=== PATIENT | female | born 1945 | race Caucasian/White ===

== ENCOUNTER → 2022-08-31 | Outpatient (CLI) | payer MEDICARE, SELFPAY ==
--- NOTE | 2022-08-31 07:44 | ECHOD_ITS ---
Reason For Study: DYSPNEA Procedure This was a 2D Doppler, Color Flow transthoracic echocardiogram. Exam performed in department. Left Ventricle Normal LV size. Left ventricular systolic function is normal. The estimated ejection fraction is 60 %. Normal diastology for age. No regional wall motion abnormalities noted. Right Ventricle Normal RV size. Normal systolic function. Atria Normal left atrium. Normal right atrium. Mitral Valve Normal mitral valve. Tricuspid Valve Normal tricuspid valve. Mild tricuspid valve insufficiency. Pulmonary artery systolic pressure is 36 mmHg. Aortic Valve Normal aortic valve. Mild (1+) aortic valve insufficiency. Pulmonic Valve Normal pulmonic valve. Great Vessels Normal aortic root. The pulmonary artery is normal size. Normal inferior vena cava. Pericardium/Pleural No pericardial effusion. MMode/2D Measurements & Calculations RVDd: 4.3 cm Ao root diam: 3.4 cm LAV(MOD-bp): 58.7 ml LAV(MOD-bp) Indexed: 35.4 ml/m2 LAV(MOD-sp2): 76.2 ml LAV(MOD-sp4): 45.7 ml SV(MOD-sp4): 45.9 ml SV(sp4-el): 48.6 ml LVAd ap4: 27.7 cm2 LVLd ap4: 8.3 cm EDV(MOD-sp4): 75.0 ml EDV(sp4-el): 78.3 ml LVAs ap4: 15.1 cm2 LVLs ap4: 6.5 cm ESV(MOD-sp4): 29.1 ml ESV(sp4-el): 29.7 ml EF(MOD-sp4): 61.2 % EF(sp4-el): 62.0 % LA A4 area: 18.0 cm2 LA dimension(2D): 3.2 cm RA A4 area: 20.2 cm2 Time Measurements MV dec time: 0.21 sec Doppler Measurements & Calculations MV E max herber: 83.6 cm/sec Lat Peak E' Herber: 9.1 cm/sec Med Peak E' Herber: 6.6 cm/sec MV A max herber: 77.7 cm/sec E/E' lat: 9.2 E/E' med: 12.7 MV E/A: 1.1 MV V2 max: 91.4 cm/sec MV dec slope: 398.9 cm/sec2 Ao V2 max: 175.1 cm/sec MV max P.4 mmHg Ao max P.3 mmHg MV V2 mean: 54.8 cm/sec Ao V2 mean: 117.7 cm/sec MV mean P.4 mmHg Ao mean P.4 mmHg MV V2 VTI: 39.9 cm Ao V2 VTI: 46.4 cm AI max herber: 452.5 cm/sec LV V1 max: 157.8 cm/sec PA V2 max: 75.8 cm/sec AI max P.9 mmHg LV V1 max P.0 mmHg PA V2 mean: 53.7 cm/sec LV V1 mean P.0 mmHg AI dec slope: 194.5 cm/sec2 LV V1 mean: 104.8 cm/sec AI P1/2t: 681.4 msec LV V1 VTI: 38.1 cm TR max herber: 288.8 cm/sec TR max P.4 mmHg ECHO/Echo Complete Interpretation Summary Normal LV size. Left ventricular systolic function is normal. The estimated ejection fraction is 60 %. Pulmonary artery systolic pressure is 36 mmHg. Ordering Physician: Tee Valdez Referring Physician: Tee Valdez Performed By: Shayna Trimble RCS
--- NOTE | 2022-08-31 17:38 | STRESSREP ---
Stress Test Report Pharmacologic perfusion stress test. 76-year-old lady with a history of chest pain. Stress protocol: Resting EKG demonstrates normal sinus rhythm with a rate of 56 bpm and a right bundle branch block. 0.4 mg of regadenoson was infused per usual protocol followed by rapid intravenous saline flush injection continuous EKG monitoring was performed. The maximum heart rate attained was 95 bpm which was 65% of max impacted heart rate the maximum workload was 1 metabolic equivalent. At rest there were no ST or T wave changes noted to suggest abnormal flow reserve and at peak infusion nonspecific ST changes were noted with did not meet the criteria for ischemia. No clinical angina was noted. Myocardial perfusion protocol. 11.6 mCi of technetium 99m sestamibi was injected at rest. 0.4 mg of regadenoson was infused per usual protocol. At peak infusion 32.8 mCi of technetium 99m sestamibi was injected stress images were obtained stress and rest images were reconstructed in comparing the short axis vertical long and horizontal long axis. Gated images were also obtained. Review of the stress images demonstrate normal uptake of tracer noted in all areas of the myocardium. The resting images similarly demonstrate normal uptake of tracer noted in all areas of the myocardium. No reversibility is noted to suggest ischemia and no previous infarct is noted. Gated SPECT analysis: The gated ejection fraction is noted to be 80%. Conclusion: Normal pharmacologic myocardial perfusion stress test. Preserved ejection fraction.
== END | disposition home or self-care (01) ==
PROVIDERS: Referring Provider Internal Medicine Cardiovascular Disease; Visit Provider Internal Medicine Cardiovascular Disease
DX: R06.00 Dyspnea, unspecified (principal); I25.10 Atherosclerotic heart disease of native coronary artery without angina pectoris; R06.02 Shortness of breath
CPT/HCPCS: 78452; 93017; 93306; A9500; A4216; J2785

== ENCOUNTER → 2022-12-16 | Outpatient (CLI) | payer MEDICARE, SELFPAY ==
--- NOTE | 2022-12-16 09:51 | RAD_ITS ---
INDICATION: [facility] EXAMINATION/TECHNIQUE: X-RAY - XR Chest 2 Views COMPARISON: None. FINDINGS: LINES/DEVICES: None. LUNGS: Mild hyperinflation with coarsening of interstitial markings. No consolidation, vascular congestion or pleural effusion. MEDIASTINUM AND CARDIOVASCULAR STRUCTURES: Cardiac silhouette not enlarged. Central airways and mediastinal contour are unremarkable. BONES AND SOFT TISSUES: Unremarkable. RAD/Chest PA and Lateral IMPRESSION: Hyperinflation without radiographic findings of acute cardiopulmonary disease. Electronically Signed: Thompson Flores MD at 20:10 EST ,
[2022-12-16 11:00] LABS: Absolute Lymphocyte Count 2.44 X10^3/uL (0.83-4.51); Absolute Neutrophil Count 4.5 X10^3/uL (2.0-7.7); Basophil% 1.2 % (0-1); Eosinophil# 0.33 X10^3/uL; Eosinophils% 4.1 % (0-5); Hematocrit 42.5 % (37-47); Hemoglobin 13.5 g/dL (12.0-15.0); Lymphocyte # 2.44 X10^3/ul (0.83-4.51); Lymphocyte % 30.2 % (19-41); Mean Corp Hgb Conc 31.8 g/dL (32-36); Mean Corpuscular Hgb 31.6 pg (27.0-32.0); Mean Corpuscular Volume 99.5 fL (81-99); Mean Platelet Vol. 9.2 fl (6.2-12.0); Monocyte# 0.71 X10^3/uL; Monocyte% 8.8 % (0-10); NRBC Flagged by Analyzer 0 % (0-5); Neutrophil # 4.47 X10^3/uL (2.7-7.7); Neutrophil % 55.3 % (47-70); Platelet Count 418 K/mm3 (150-450); RBC Distribution Width CV 13.2 % (11.6-14.6); RBC Distribution Width SD 47.8 fl (35.1-43.9); Red Blood Count 4.27 M/mm3 (4.2-5.4); White Blood Count 8.1 K/mm3 (4.4-11.0)
[2022-12-16 11:26] LABS: BNP,B-Type NATRIURETIC PEPTIDE 55.4 pg/mL (0-100)
[2022-12-16 11:38] LABS: Anion Gap 6 (5-15); BUN 20 mg/dL (7-18); BUN/Creat Ratio 24.2 RATIO (10-20); Calcium,Total 9.1 mg/dL (8.5-10.1); Chloride 101 mmol/L (98-107); Creatinine, Serum 0.82 mg/dL (0.55-1.02); EST Glomerular Filtration Rate 72 mL/min (>60); Est Glom Filt Rate - Afr Amer 87 mL/min (>60); Glucose 100 mg/dL (74-106); Potassium 4.3 mmol/L (3.5-5.1); Sodium Level 140 mmol/L (136-145); Thyroid Stim Hormone (TSH) 4.85 uIU/mL (0.358-3.74)
== END | disposition home or self-care (01) ==
LOC: RAD 09:49
PROVIDERS: Referring Provider Nurse Practitioner Gerontology; Visit Provider Nurse Practitioner Gerontology
DX: R06.00 Dyspnea, unspecified (principal); R53.83 Other fatigue
CPT/HCPCS: 36415; 71046; 80048; 83880; 84443; 85025

== ENCOUNTER → 2024-09-12 | Outpatient (CLI) | payer MEDICARE, SELFPAY ==
--- NOTE | 2024-09-12 18:50 | STRESSREP ---
Stress Test Report Pharmacologic myocardial perfusion stress test. 78-year-old lady with a history of chest pain Resting EKG demonstrates sinus bradycardia with a rate of 56 bpm. Resting blood pressure is 152/78 mmHg. 0.4 mg of regadenoson was infused per usual protocol followed by rapid intravenous saline flush injection. Continuous EKG monitoring was performed. The maximum heart rate was 96 bpm which was 67% of max impacted heart rate the maximum workload was 1 metabolic equivalent. At rest there were no ST or T wave changes noted to suggest ischemia and at peak infusion nonspecific ST changes were noted which did not meet the criteria for ischemia. No clinical angina is noted. The final blood pressure was 140/80 mmHg. Myocardial perfusion protocol. 9.3 mCi of technetium 99m sestamibi was injected at rest. 0.4 mg of regadenoson was infused per usual protocol. At peak infusion 31 mCi of technetium 99m sestamibi was injected stress images were obtained stress and rest images were reconstructed and compared in the short axis vertical long and horizontal long axis. Gated images were also obtained. Perfusion SPECT analysis: Review of the stress images demonstrate normal uptake of tracer noted in all areas of the myocardium except for the mid anterior wall with mildly reduced perfusion. The resting images similar demonstrated normal uptake of tracer noted in all areas of the myocardium. Mild anterior reversible ischemia is present Gated SPECT analysis: The gated ejection fraction is 81%. Conclusion: Mildly abnormal pharmacologic myocardial perfusion stress test with mild anterior ischemia. Preserved ejection fraction.
== END | disposition home or self-care (01) ==
PROVIDERS: PCP Family Medicine; Referring Provider Internal Medicine Cardiovascular Disease; Visit Provider Internal Medicine Cardiovascular Disease
DX: R07.9 Chest pain, unspecified (principal); J44.9 Chronic obstructive pulmonary disease, unspecified; R06.00 Dyspnea, unspecified; R53.83 Other fatigue; R00.2 Palpitations; R00.1 Bradycardia, unspecified; I10 Essential (primary) hypertension; I45.10 Unspecified right bundle-branch block; I25.10 Atherosclerotic heart disease of native coronary artery without angina pectoris; Z99.81 Dependence on supplemental oxygen
CPT/HCPCS: 78452; 93017; A9500; A4216; J2785

== ENCOUNTER → 2024-09-14 | Outpatient (CLI) | payer MEDICARE, SELFPAY ==
[2024-09-14 09:00] LABS: Absolute Lymphocyte Count 1.59 X10^3/uL (0.83-4.51); Absolute Neutrophil Count 8.2 X10^3/uL (2.0-7.7); Basophil# 0.09 X10^3/uL; Basophil% 0.8 % (0-1); Eosinophil# 0.22 X10^3/uL; Hematocrit 42.1 % (37-47); Hemoglobin 13.4 g/dL (12.0-15.0); Lymphocyte # 1.59 X10^3/ul (0.83-4.51); Lymphocyte % 14.3 % (19-41); Mean Corp Hgb Conc 31.8 g/dL (32-36); Mean Corpuscular Hgb 31.5 pg (27.0-32.0); Mean Corpuscular Volume 98.8 fL (81-99); Mean Platelet Vol. 8.8 fl (6.2-12.0); Monocyte# 0.98 X10^3/uL; Monocyte% 8.8 % (0-10); NRBC Flagged by Analyzer 0 % (0-5); Neutrophil # 8.18 X10^3/uL (2.7-7.7); Neutrophil % 73.6 % (47-70); Platelet Count 391 K/mm3 (150-450); RBC Distribution Width CV 13.4 % (11.6-14.6); RBC Distribution Width SD 49.1 fl (35.1-43.9); Red Blood Count 4.26 M/mm3 (4.2-5.4); White Blood Count 11.1 K/mm3 (4.4-11.0)
[2024-09-14 09:30] LABS: Anion Gap 2 (5-15); BUN 15 mg/dL (7-18); BUN/Creat Ratio 20.8 RATIO (10-20); Calcium,Total 9.1 mg/dL (8.5-10.1); Chloride 105 mmol/L (98-107); Creatinine, Serum 0.72 mg/dL (0.55-1.02); EST Glomerular Filtration Rate 83 mL/min (>60); Est Glom Filt Rate - Afr Amer 101 mL/min (>60); Glucose 95 mg/dL (74-106); Potassium 4.5 mmol/L (3.5-5.1); Sodium Level 141 mmol/L (136-145)
== END | disposition home or self-care (01) ==
LOC: LAB 08:16
PROVIDERS: PCP Family Medicine; Referring Provider Physician Assistant Medical; Visit Provider Physician Assistant Medical
DX: R94.39 Abnormal result of other cardiovascular function study (principal); R06.00 Dyspnea, unspecified
CPT/HCPCS: 36415; 80048; 85025

== ENCOUNTER 2024-09-19 07:46 | Day surgery (SDC) | payer MEDICARE, SELFPAY ==
--- NOTE | 2024-09-17 12:54 | PCM.HP.BLA ---
History and Physical Date of Admission: 09/19/24 This is a pleasant 78-year-old lady who presents for a cardiac catheterization following an abnormal stress test. Her major complaint at this time is chest discomfort which she says lasts approximately 5 seconds occasionally radiates no exacerbating or relieving factors but is having this more frequently. She has had a previous history of cardiac catheterization from September 2012 demonstrating minimal disease in the proximal left anterior descending artery and distal left anterior descending artery. Her right-sided pressures were noted to be normal. She also had a normal Lexiscan pharmacologic myocardial perfusion stress test in August 2022. She does have a chronic right bundle branch block, history of hypertension and says that she has been told that she may need aortic valve surgery. She underwent an echocardiogram on 08/31/2022 which demonstrated an ejection fraction of 60%, and mild aortic valve insufficiency. From a cardiac standpoint, the patient is doing well. She does have an occasional palpitation. She describes this as a fluttering sensation. This is newer, and occurs about twice a week. She does have SOB with exertion. This is worsening. She states that she does follow with pulmonology. She states she saw them a few weeks ago, and there has been no improvement in her lung function. She sleeps in a recliner. She does wear oxygen at night. She denies Orthopnea, and PND. She does not have bleeding issues; no blood in urine, stool or nosebleeds. She does acknowledge a decrease in energy level. She denies myalgias, or claudication. She does not have edema, or sudden weight gain. She states that she feels like she weighs more. She does have an occasional lightheadedness with walking. She denies dizziness, syncopal or near syncopal episodes, and headaches. Intake Vital Signs See EMR Allergies See EMR Medications See EMR [facility] Medical History Chest pain Thrombocytosis On home oxygen therapy Obesity History of tobacco abuse IBS (irritable bowel syndrome) Rheumatic fever Right bundle branch block (RBBB) Lyme disease Diverticulitis Nonobstructive atherosclerosis of coronary artery Osteoporosis Lumbar spinal stenosis Hypothyroidism Herpes labialis Iron deficiency anemia GERD (gastroesophageal reflux disease) Depression Chronic tension headache COPD (chronic obstructive pulmonary disease) Cervical osteoarthritis Arthritis Essential hypertension Surgical History History of kidney surgery History of right and left heart catheterization (09/21/12) History of lumpectomy of left breast History of tonsillectomy History of hysterectomy History of cholecystectomy History of herniorrhaphy Family History Brother Heart disease CancerSister Heart diseaseSon Heart diseaseSon Heart diseaseMother CancerFather Cancer Social History Smoking Status: Former smoker quit date: 03/10/04 pack-years: 60 alcohol intake: never ROS Const Const: Positive for fatigue and headache(s); Negative for weakness, daytime sleepiness or difficulty sleeping ENT ENT: Positive for headache(s); Negative for dizziness or Nosebleed/epistaxis Cardio Chest Pain: Yes Frequency: daily Character: other Onset: other (off and on) Location: mid sternal Duration: minutes Exacerbation: activity Relieving: rest Palpitations: No Edema: None Additional Details: back pain at times as well Resp Respiratory: Positive for SOB with activity and SOB at rest (hx of COPD); Negative for SOB orthopnea\SOB lying down or Cough GI GI: Positive for nausea; Negative vomiting or heartburn Neuro Neuro: Positive for headache(s); Negative for dizziness, lightheadedness, near syncope or weakness Endo Endo: Positive for fatigue Cardiology Exam Const Appearance: cooperative, healthy appearing, no acute distress, well developed and well groomed Nutritional Appearance: average body habitus, well nourished and overweight Orientation: alert, awake and oriented x3 Head Head: normal to inspection, normocephalic and atraumatic Ears: hearing grossly normal bilaterally and external ears normal Nose: external nose normal Face and Sinus: face symmetric Eyes General: appearance normal, both eyes and all related structures Eyelids: eyelids normal Conjunctivae: conjunctivae normal Pupils: PERRL EOM: EOM intact bilaterally Neck Neck: normal visual inspection, trachea midline and no JVD JVD: +5 Carotids: normal carotid upstroke and bounding pulses Chest Chest inspection: normal inspection of the chest, symmetric chest movement and normal respiratory effort Auscultation: Bilateral: Diminished Base Cardio Palpation: normal PMI Rate: regular rate Rhythm: regular rhythm Heart sounds: S1 normal, S2 normal and normal, physiologic split S2; Negative rub, gallop or murmur GI GI: normal to inspection and soft Neuro General: patient alert, patient awake, patient oriented x3, gait normal, moves all extremities and no focal sensory deficit Skin Skin: no rashes or lesions noted Extremities Pulses: Normal: Right Posterior Tibial Pulse, Left Posterior Tibial Pulse, Right Radial Pulse and Left Radial Pulse Lower Extremity Edema: None: Bilateral Musculoskel Musculoskeletal: No joint tenderness Psych Psychological: normal affect Supplemental Info Supplemental Information Echocardiogram 08/31/2022: Interpretation Summary Normal LV size. Left ventricular systolic function is normal. The estimated ejection fraction is 60 %. Pulmonary artery systolic pressure is 36 mmHg. ECHOCARDIOGRAM 05/02/2021 Interpretation Summary LVEF 75 to 80% with mild LV diastolic dysfunction. The right ventricle is normal in size and function. No hemodynamically significant valvular aortic stenosis. Mild aortic regurgitation. There is mild mitral regurgitation. There is Trace to mild tricuspid regurgitation. Right ventricular systolic pressure is elevated at 35- 40mmHg. Trace pulmonic valvular regurgitation. Trivial pericardial effusion. Stress test 08/31/2022: Pharmacologic perfusion stress test. Conclusion: Normal pharmacologic myocardial perfusion stress test. Preserved ejection fraction. Transtele Arrhythmia Monitor Report 05/19/23 Summary The patient's monitoring period was 05/19/23-06/01/23. Baseline sample showed Sinus Rhythm w/ 1st Degree AV Block wtih a heart rate of 81.5 bpm. There were 0 critical, 0 serious, and 2 stable events that occurred. ? Assessment and Plan Assessment and Plan (1) Nonobstructive atherosclerosis of coronary artery: Status: Chronic Plan: Patient has a history of nonobstructive coronary artery disease. Her most recent stress test from 09/12/2024 was mildly abnormal with mild anterior ischemia. Would like to proceed with a cardiac catheterization to further assess this. Depending on results, further recommendations will be made. (2) Chest pain: Status: Acute Plan: She does have some chest discomfort. Her most recent stress test from 09/12/2024 was mildly abnormal with mild anterior ischemia. Would like to proceed with a cardiac catheterization to further assess this. Depending on results, further recommendations will be made.
--- NOTE | 2024-09-19 07:55 | RAD_ITS ---
INDICATION: abnormal stress test EXAMINATION/TECHNIQUE: X-RAY - XR Chest 2 Views COMPARISON: 12/16/2022. FINDINGS: LINES/DEVICES: None. LUNGS: No consolidation or evidence of an effusion. No evidence of edema or a pneumothorax. Hyperinflation of the lungs which may represent COPD. MEDIASTINUM AND CARDIOVASCULAR STRUCTURES: Cardiac silhouette is normal in size and contour. Mediastinum is unremarkable. BONES AND SOFT TISSUES: No acute abnormality. RAD/Chest PA and Lateral IMPRESSION: No evidence of acute cardiopulmonary disease. Electronically Signed: Dev Coughlin DO at 23:34 EDT ,
--- OUTSIDE RECORDS SUMMARY | 2024-09-19 08:02 | XMS RPT_ITS | CCD ---
Author Organization [facility] Care Team Providers Care Instrument Fitter Name Role Phone JENNA DO, DR NOBLE Mcfadden Primary Care Physician Jenna DO, Noble Mota Primary Care Provider [phone] Jenna DO, Noble Mota Primary Care Provider Jenna DO, Noble Nakul Primary Care Provider [phone] Jenna DO, Noble Nakul Primary Care Provider CARLOS REEVES Admitting Unavailable CARLOS REEVES Attending Unavailable JENNA, [facility] Primary Care Unavailable JENNA, NOBLETYSHAWN MOTA Referring Unavailable JENNA, [facility] Primary [facility] Unavailable CARLOS REEVES Attending Unavailable JENNA, [facility] Primary [facility] Unavailable CARLOS REEVES Referring Unavailable JENNA, [facility] Unavailable SARINAACRMELA Referring Unavailable CARMELA BRANCH Attending Unavailable JENNA, [facility] Unavailable JENNA, [facility] Care Unavailable CARLOS REEVES Referring Unavailable CARLOS REEVES Attending Unavailable JENNA, [facility] Unavailable CARLOS REEVES Referring Unavailable JENNA, [facility] Unavailable CARLOS REEVES Attending Unavailable GEORGIA BUSH Attending Unavailable JENNA, [facility] Unavailable JENNA, [facility] Primary Care Unavailable JENNA DO, DR NOBLE Mcfadden Primary Care Unavailabl e JENNA DO, DR NOBLE Mcfadden Attending Unavailabl e JENNA DO, DR NOBLE Mcfadden Referring Unavailabl e JENNA DO, DR NOBLE Mcfadden Attending Unavailabl e JENNA DO, DR NOBLE Mcfadden Primary Care Unavailabl e JENNA DO, DR NOBLE Mcfadden Primary Care Unavailabl e JENNA DO, DR NOBLE Mcfadden Attending Unavailabl e CHOUJAA DO, NIDAL Attending Unavailable JENNA DO, DR NOBLE Mcfadden Primary Care Unavailabl e JENNA DO, DR NOBLE Mcfadden Primary Care Unavailabl e [facility] Attending Unavaila ble JENNA DO, DR NOBLE Mcfadden Primary Care Unavailabl e [facility] [place] Phelps Attending Unavaila ble JENNA DO, DR NOBLE Mcfadden Primary Care Unavailabl e JENNA DO, DR NOBLE Mcfadden Attending Unavailabl e BALTES ZIG [facility]AG [facility] [place] Attending Unavailabl e JENNA DO, DR NOBLE Mcfadden Primary Care Unavailabl e Allergies Allergy Classification Reported Allergen(s) Allergy Type Date of Onset Reaction(s) Facility (8 sources) DULoxetine; Translations: [duloxetine] Drug Allergy Nausea, Headache, Dizziness [facility] (20 sources) Penicillins; Translations: [penicillins] Drug allergy 4 Swelling, Anaphylaxis [facility] (8 sources) Phenazopyridine; Translations: [phenazopyridine] Drug Allergy Itching, vomiting [facility] (20 sources) Sertraline; Translations: [sertraline] Drug Allergy 1 Other: See Comments [facility] (8 sources) Sulfonamides (Antibiotic); Translations: [sulfa drugs] Drug allergy Itching, Hives [facility] (17 sources) Phenazopyridine; Translations: [PHENAZOPYRIDINE HCL] Drug Allergy 4 GI Upset, Vomiting [facility] Work Phone: (17 sources) Sulfonamides (Antibiotic); Translations: [SULFA (SULFONAMIDE ANTIBIOTICS)] Drug Allergy 4 Swelling, Anaphylaxis [facility] Work Phone: (17 sources) zonisamide; Translations: [ZONISAMIDE] Drug Allergy 6 Rash [facility] Medications Current Medications Medication Drug Class(es) Dates Sig (Normalized) Sig (Original) acetaminophen 325 mg / oxyCODONE hydrochloride 5 mg oral tablet (2 sources) Opioid Agonist Start: 01-14-2022 End: 01-21-2022 take 1 tablet by mouth every six hours as needed for pain acetaminophen-oxyCOD ONE 325 mg-5 mg oral tablet Dose = 1 tab(s), Oral, q6h, PRN for pain, fill 01/15/22, X 7 day(s), # 28 tab(s), 0 Refill(s), Pharmacy: [id number], Cervical osteoarthritis Cervical paraspinal muscle spasm, 156.5, cm, 01/14/22 16:47:00 EST, Height, 66.6, kg, 01/14/22 16:... Start Date: 01/14/22 Stop Date: 01/21/22 Status: Ordered Start: 01-09-2022 End: 01-12-2022 take 1 tablet by mouth every six hours as needed for pain Percocet 5 mg-325 mg oral tablet Dose = 1 tab(s), Oral, q6h, PRN for pain, X 3 day(s), # 12 tab(s), 0 Refill(s), Fall Rib pain, 65.2 Start Date: 01/09/22 Stop Date: 01/12/22 Status: Ordered acyclovir 200 mg oral capsule (13 sources) Herpesvirus Nucleoside Analog DNA Polymerase Inhibitor, Herpes Simplex Virus Nucleoside Analog DNA Polymerase Inhibitor, Herpes Zoster Virus Nucleoside Analog DNA Polymerase Inhibitor Start: 05-02-2023 End: 02-18-2025 acyclovir 200 mg oral capsule Dose : 200 mg = 1 cap(s), Oral, BID, after acute treatment for prevention, # 180 cap(s), 3 Refill(s), Pharmacy: [facility], Herpes simplex type 2 infection, 154, cm, 05/21/24 10:21:00 EDT, Height, kg, 05/21/24 10:21:00 EDT, Dosing Weight Start Date: 05/21/24 Status: Ordered Start: 02-28-2023 End: 03-26-2023 take 1 tablet by mouth five times daily acyclovir (ZOVIRAX) 800 mg tablet TAKE 1 TABLET BY MOUTH FIVE TIMES DAILY FOR 7 DAYS 0 02/28/2023 03/26/2023 Discontinued Start: 08-05-2021 take 2 capsules by m outh twice daily acyclovir 200 mg oral capsule See Instructions, TAKE 2 CAPSULES TWICE DAILY, # 360 cap(s), 3 Refill(s), Pharmacy: [facility], 156, cm, 07/23/21 11:12:00 EDT, Height, kg, 07/23/21 11:12:00 EDT, Dosing Weight Start Date: 08/05/21 Status: Ordered Start: 04-02-2021 End: 08-09-2022 take 1 capsule by mouth twice daily acyclovir (ZOVIRAX) 200 mg capsule Indications: Herpes simplex Take 1 capsule by mouth twice daily. 0 04/02/2021 08/09/2022 Discontinued (Course of therapy completed) Comment on above: Take 1 capsule by mo [facility] twice daily. TAKE 1 TABLET BY MARIANNA FIVE TIMES DAILY FOR 7 DAYS Albuterol (20 sources) beta2-Adrenergic Agonist Start: 05-21-2024 take 1-2 puff(s) by inhalation every six hours as needed for cough Ventolin HFA MDI (90 mcg/inh) inhalation aerosol 1-2 puffs, Inhalation, q6h, PRN as needed for cough/wheeze, # 8.5 gram(s), 3 Refill(s), Pharmacy: [facility], 154, cm, 05/21/24 10:21:00 EDT, Height, kg, 05/21/24 10:21:00 EDT, Dosing Weight Start Date: 05/21/24 Status: Ordered Start: 12-11-2021 take 1-2 puff(s) by inhalation every six hours as needed for cough Ventolin HFA MDI (90 mcg/inh) inhalation aerosol 1-2 puffs, Inhalation, q6h, PRN as needed for cough/wheeze, # 8.5 gram(s), 3 Refill(s), Pharmacy: [facility], 154.5, cm, 10/21/21 11:09:00 EST, Height, kg, 10/21/21 11:09:00 EST, Dosing Weight Start Date: 12/11/21 Status: Ordered Start: 07-22-2020 take 1 dose by inhal ation every eight hours albuterol (PROVENTIL) 2.5 mg /3 mL (0.083 %) nebulizer solution INHALE CONTENTS OF 1 VIAL NEBULIZED EVERY 8 HOURS 300 mL 0 07/22/2020 Active Start: 12-19-2015 End: 03-26-2023 take 2 puff(s) by inhalation twice daily as needed albuterol HFA (PROAIR HFA) 90 mcg/actuation inhaler Inhale 2 Puffs as instructed twice daily as needed. 3 Inhaler 3 12/19/2015 03/26/2023 Discontinued Comment on above: Inhale 2 Puffs as in structed twice daily as needed. INHALE CONTENTS OF 1 VIAL NEBULIZED EVERY 8 HOURS Ascomp with Codeine oral capsule (2 sources) Start: 1 End: 2 take 1 capsule by mouth every eight hours Ascomp with Codeine oral capsule Dose = 1 cap(s), Oral, q8hr, fill 11/11/21, # 90 cap(s), 2 Refill(s), Pharmacy: [id number], Chronic tension headache, 154.5, cm, 10/21/21 11:09:00 EST, Height, 65.2, kg, 10/21/21 11:09:00 EST, Dosing Weight Start Date: 10/21/21 Stop Date: 01/19/22 Status: Ordered aspirin 325 mg / butalbital 50 mg / caffeine 40 mg / codeine phosphate 30 mg oral capsule (6 sources) Platelet Aggregation Inhibitor, Opioid Agonist, Barbiturate, Nonsteroidal Anti-inflammatory Drug, Central Nervous System Stimulant, Methylxanthine Start: 4 End: 5 take 1 capsule by mouth every eight hours Ascomp with Codeine oral capsule Dose = 1 cap(s), Oral, q8h, fill 09/19/24, # 90 cap(s), 2 Refill(s), Pharmacy: [id number], Chronic tension headache, 157, cm, 08/30/24 10:43:00 EDT, Height, 69.4, kg, 08/30/24 10:43:00 EDT, Dosing Weight Start Date: 08/30/24 Stop Date: 11/28/24 Status: Ordered Start: 02-24-2024 End: 05-24-2024 take 1 capsule by mouth every eight hours Ascomp with Codeine oral capsule Dose = 1 cap(s), Oral, q8h, fill 02/24/24, # 90 cap(s), 2 Refill(s), Pharmacy: [id number], Chronic tension headache, 154, cm, 02/24/24 10:53:00 EDT, Height, 68.2, kg, 02/24/24 10:53:00 EDT, Dosing Weight Start Date: 02/24/24 Stop Date: 05/24/24 Status: Ordered Start: 11-25-2023 End: 02-23-2024 take 1 capsule by mouth every eight hours Ascomp with Codeine oral capsule Dose = 1 cap(s), Oral, q8h, fill 11/25/23, # 90 cap(s), 2 Refill(s), Pharmacy: [facility], Chronic tension headache, 154, cm, 11/25/23 10:13:00 EST, Height, 67.9, kg, 11/25/23 10:13:00 EST, Dosing Weight Start Date: 11/25/23 Stop Date: 02/23/24 Status: Ordered Start: 08-01-2023 End: 10-30-2023 take 1 capsule by mouth every eight hours Ascomp with Codeine oral capsule Dose = 1 cap(s), Oral, q8h, fill 08/25/23, # 90 cap(s), 2 Refill(s), Pharmacy: [facility], Chronic tension headache, 154, cm, 08/01/23 10:47:00 EDT, Height, 67.4, kg, 08/01/23 10:47:00 EDT, Dosing Weight Start Date: 08/01/23 Stop Date: 10/30/23 Status: Ordered Calcium, Magnesium and Zinc oral tablet (8 sources) Start: 07-13-2021 take 1 tablet by mouth once daily Calcium, Magnesium and Zinc oral tablet Dose = 1 tab(s), Oral, qDay, with vitamin d also, 0 Refill(s) Start Date: 07/13/21 Status: Ordered Cinnamon Preparation (6 sources) Non-Standardized Food Allergenic Extract Start: 08-17-2023 cinnamon mg =, Oral, 0 Refill(s) Start Date: 08/17/23 Status: Ordered citalopram 40 mg oral tablet (20 sources) Serotonin Reuptake Inhibitor Start: 05-21-2024 citalopram 40 mg oral tablet Dose : 40 mg = 1 tab(s), Oral, qDay, # 90 tab(s), 3 Refill(s), [facility], 154, cm, 05/21/24 10:21:00 EDT, Height, kg, 05/21/24 10:21:00 EDT, Dosing Weight Start Date: 05/21/24 Status: Ordered Start: 01-25-2024 citalopram 40 mg oral tablet Dose : 40 mg = 1 tab(s), Oral, qDay, # 90 tab(s), 3 Refill(s), Pharmacy: [facility], 154, cm, 11/25/23 10:13:00 EST, Height, kg, 11/25/23 10:13:00 EST, Dosing Weight Start Date: 01/25/24 Status: Ordered Start: 10-31-2023 citalopram 40 mg oral tablet Dose : 40 mg = 1 tab(s), Oral, qDay, # 90 tab(s), 3 Refill(s), Pharmacy: [id number], 154, cm, 08/17/23 13:33:00 EDT, Height, kg, 08/17/23 13:33:00 EDT, Dosing Weight Start Date: 10/31/23 Status: Ordered Start: 12-24-2015 citalopram 40 mg oral tablet Dose : 40 mg = 1 tab(s), Oral, qDay, # 90 tab(s), 3 Refill(s), Pharmacy: [facility], 153.5, cm, 07/07/23 16:52:00 EDT, Height, kg, 07/07/23 16:52:00 EDT, Dosing Weight Start Date: 07/07/23 Status: Ordered Comment on above: Take 1 tablet by marianna th once daily. cyclobenzaprine hydrochloride 10 mg oral tablet (20 sources) Muscle Relaxant Start: 05-21-2024 cyclobenzaprine 10 mg oral tablet Dose : 10 mg = 1 tab(s), Oral, qHS, NEEDED FOR MUSCLE SPASM PAIN, # 90 tab(s), 1 Refill(s), Pharmacy: [facility], 154, cm, 05/21/24 10:21:00 EDT, Height, kg, 05/21/24 10:21:00 EDT, Dosing Weight Start Date: 05/21/24 Status: Ordered Start: 02-24-2024 cyclobenzaprin e 10 mg oral tablet Dose : 10 mg = 1 tab(s), Oral, qHS, NEEDED FOR MUSCLE SPASM PAIN, # 90 tab(s), 1 Refill(s), Pharmacy: [facility], 154, cm, 02/24/24 10:53:00 EDT, Height, kg, 02/24/24 10:53:00 EDT, Dosing Weight Start Date: 02/24/24 Status: Ordered Start: 06-11-2015 cyclobenzaprin e 10 mg oral tablet Dose : 10 mg = 1 tab(s), Oral, qHS, NEEDED FOR MUSCLE SPASM PAIN, # 90 tab(s), 1 Refill(s), Pharmacy: [facility], 153.5, cm, 07/07/23 16:52:00 EDT, Height, kg, 07/07/23 16:52:00 EDT, Dosing Weight Start Date: 07/07/23 Status: Ordered Comment on above: Take 1 tablet by marianna th twice daily as needed. DME MISCellaneous (10 sources) Start: 09-16-2023 DME MISCellaneous See Instructions, alcohol pads. E16.2. clear finger prior to checking sugar once daily. #30, # 30 EA, 0 Refill(s), Pharmacy: [id number], 154, cm, 08/17/23 13:33:00 EDT, Height, 66.8, kg, 08/17/23 13:33:00 EDT, Dosing Weight Start Date: 09/16/23 Status: Ordered Start: 09-16-2023 DME MISCellane ous See Instructions, glucometer. #1. E16.2. check blood sugar once daily, # 1 EA, 0 Refill(s), Pharmacy: [id number], Hypoglycemia, 154, cm, 08/17/23 13:33:00 EDT, Height, 66.8, kg, 08/17/23 13:33:00 EDT, Dosing Weight Start Date: 09/16/23 Status: Ordered esomeprazole 40 mg delayed release oral capsule (20 sources) Proton Pump Inhibitor Start: 05-21-2024 esomeprazole 40 mg oral delayed release capsule Dose : 40 mg = 1 cap(s), Oral, qDay, Take 1 capsule everyday before meals on an empty stomach, # 90 cap(s), 3 Refill(s), Pharmacy: [facility], 154, cm, 05/21/24 10:21:00 EDT, Height, kg, 05/21/24 10:21:00 EDT, Dosing Weight Start Date: 05/21/24 Status: Ordered Start: 01-25-2024 esomeprazole 4 0 mg oral delayed release capsule Dose : 40 mg = 1 cap(s), Oral, qDay, Take 1 capsule everyday before meals on an empty stomach, # 90 cap(s), 3 Refill(s), Pharmacy: [facility], 154, cm, 11/25/23 10:13:00 EST, Height, kg, 11/25/23 10:13:00 EST, Dosing Weight Start Date: 01/25/24 Status: Ordered Start: 10-31-2023 esomeprazole 4 0 mg oral delayed release capsule Dose : 40 mg = 1 cap(s), Oral, qDay, Take 1 capsule everyday before meals on an empty stomach, # 90 cap(s), 3 Refill(s), Pharmacy: [id number], 154, cm, 08/17/23 13:33:00 EDT, Height, kg, 08/17/23 13:33:00 EDT, Dosing Weight Start Date: 10/31/23 Status: Ordered Start: 07-07-2023 esomeprazole 4 0 mg oral delayed release capsule Dose : 40 mg = 1 cap(s), Oral, qDay, Take 1 capsule everyday before meals on an empty stomach, # 90 cap(s), 3 Refill(s), Pharmacy: [facility], 153.5, cm, 07/07/23 16:52:00 EDT, Height, kg, 07/07/23 16:52:00 EDT, Dosing Weight Start Date: 8/17/23 Status: Ordered Comment on above: Take 40 mg by mouth DAILY (6 AM). esomeprazole 40 mg oral delayed release capsule (2 sources) Start: 01-15-2022 esomeprazole 40 mg oral delayed release capsule Dose : 40 mg = 1 cap(s), Oral, qDay, Take 1 capsule everyday before meals on an empty stomach, # 90 cap(s), 3 Refill(s), Pharmacy: [facility], 156.5, cm, 01/14/22 16:47:00 EST, Height, kg, 01/14/22 16:47:00 EST, Dosing Weight Start Date: 01/15/22 Status: Ordered Start: 07-23-20[address] [facility] once daily before mealtime esomeprazole 40 mg oral delayed release capsule See Instructions, TAKE 1 CAPSULE EVERY DAY BEFORE MEALS, # 30 cap(s), 11 Refill(s), Pharmacy: [id number], 156, cm, 07/23/21 11:12:00 EDT, Height, kg, 07/23/21 11:12:00 EDT, Dosing Weight Start Date: 07/23/21 Status: Ordered Eye Multivitamin (3 sources) Start: 02-24-2024 take 1 tablet by mouth once daily Eye Multivitamin Dose = 1 tab(s), Oral, qDay, 0 Refill(s) Start Date: 02/24/24 Status: Ordered famotidine 20 mg oral tablet (12 sources) Histamine-2 Receptor Antagonist Start: 05-21-2024 Pepcid 20 mg oral tablet Dose : 20 mg = 1 tab(s), Oral, BID, # 180 tab(s), 3 Refill(s), Pharmacy: [facility], Poison sarika, 154, cm, 05/21/24 10:21:00 EDT, Height, kg, 05/21/24 10:21:00 EDT, Dosing Weight Start Date: 05/21/24 Status: Ordered Start: 01-25-2024 Pepcid 20 mg o ral tablet Dose : 20 mg = 1 tab(s), Oral, BID, # 180 tab(s), 3 Refill(s), Pharmacy: [facility], Poison sarika, 154, cm, 11/25/23 10:13:00 EST, Height, kg, 11/25/23 10:13:00 EST, Dosing Weight Start Date: 01/25/24 Status: Ordered Start: 02-07-2023 Pepcid 20 mg o ral tablet Dose : 20 mg = 1 tab(s), Oral, BID, # 60 tab(s), 11 Refill(s), Pharmacy: [id number], Poison sarika, 154, cm, 08/01/23 10:47:00 EDT, Height, kg, 08/01/23 10:47:00 EDT, Dosing Weight Start Date: 08/01/23 Status: Ordered Start: 08-17-2021 End: 08-12-2022 Pepcid 20 mg oral tablet Dos e : 20 mg = 1 tab(s), Oral, BID, # 60 tab(s), 11 Refill(s), Pharmacy: [id number], Poison sarika, 156, cm, 07/23/21 11:12:00 EDT, Height, kg, 07/23/21 11:12:00 EDT, Dosing Weight Start Date: 08/17/21 Stop Date: 08/12/22 Status: Ordered ferrous sulfate 325 mg oral tablet (20 sources) Start: 05-21-2024 ferrous sulfat e 325 mg (65 mg elemental iron) oral tablet Dose : 325 mg = 1 tab(s), Oral, BIDM, Take with food., # 60 tab(s), 3 Refill(s), Pharmacy: [facility], 154, cm, 05/21/24 10:21:00 EDT, Height, kg, 05/21/24 10:21:00 EDT, Dosing Weight Start Date: 05/21/24 Status: Ordered Start: 07-07-2023 ferrous sulfat e 325 mg (65 mg elemental iron) oral tablet Dose : 325 mg = 1 tab(s), Oral, BIDM, Take with food., # 60 tab(s), 3 Refill(s), Pharmacy: [facility], 153.5, cm, 07/07/23 16:52:00 EDT, Height, kg, 07/07/23 16:52:00 EDT, Dosing Weight Start Date: 07/07/23 Status: Ordered Start: 07-29-2021 take 1 tablet by marianna th three times daily Ferrous Sulfate 27 mg iron tab Take 27 mg by mouth three times daily. 100 tablet 2 07/29/2021 Active Start: 07-06-2021 ferrous sulfat e 325 mg (65 mg elemental iron) oral tablet Dose : 325 mg = 1 tab(s), Oral, BIDM, Take with food., # 60 tab(s), 3 Refill(s), Pharmacy: [id number], 155, cm, 07/04/21 21:01:00 EDT, Height, kg, 07/04/21 21:01:00 EDT, Dosing Weight Start Date: 07/06/21 Status: Ordered Comment on above: Take 27 mg by mouth three times daily. hydroCHLOROthiazide 12.5 mg oral tablet (20 sources) Thiazide Diuretic Start: hydroCHLOROthiazide 12.5 mg oral tablet Dose : 12.5 mg = 1 tab(s), Oral, qDay, # 90 tab(s), 3 Refill(s), Pharmacy: [facility], 154, cm, 05/21/24 10:21:00 EDT, Height, kg, 05/21/24 10:21:00 EDT, Dosing Weight Start Date: 05/21/24 Status: Ordered Start: 01-25-2024 hydroCHLOROthi azide 12.5 mg oral tablet Dose : 12.5 mg = 1 tab(s), Oral, qDay, # 90 tab(s), 3 Refill(s), Pharmacy: [facility], 154, cm, 11/25/23 10:13:00 EST, Height, kg, 11/25/23 10:13:00 EST, Dosing Weight Start Date: 01/25/24 Status: Ordered Start: 08-20-2019 hydroCHLOROthi azide 12.5 mg oral tablet Dose : 12.5 mg = 1 tab(s), Oral, qDay, # 90 tab(s), 3 Refill(s), Pharmacy: [facility], 153.5, cm, 07/07/23 16:52:00 EDT, Height, kg, 07/07/23 16:52:00 EDT, Dosing Weight Start Date: 07/07/23 Status: Ordered Comment on above: Take 1 tablet by marianna th once daily levothyroxine sodium 0.15 mg oral tablet (20 sources) l-Thyroxine Start: 02-20-2021 levothyroxine 150 mcg (0.15 mg) oral tablet Dose : 150 mcg = 1 tab(s), Oral, qDay, 0 Refill(s) Start Date: 02/20/21 Status: Ordered levothyroxine (S YNTHROID) 150 mcg tablet Take 175 mcg by mouth once daily. 0 Active take 1 tablet by mouth once brad y levothyroxine (SYNTHROID) 150 mcg tablet Take 150 mcg by mouth once daily. 0 Active Comment on above: Take 150 mcg by mout h once daily. Take 175 mcg by mout h once daily. loratadine 10 mg oral capsule (1 source) Start: 07-17-2021 loratadine 10 mg oral capsule Dose : 10 mg = 1 cap(s), Oral, qDay, # 10 cap(s), 0 Refill(s), Pharmacy: [id number], Poison sarika, 156, cm, 07/13/21 14:18:00 EDT, Height, kg, 07/17/21 11:02:00 EDT, Dosing Weight Start Date: 07/17/21 Status: Ordered LORazepam 0.5 mg oral tablet (6 sources) Benzodiazepine Start: 08-30-2024 End: 11-28-2024 LORazepam 0.5 mg oral tablet Dose : 0.5 mg = 1 tab(s), Oral, qDay, fill 08/30/24, # 30 tab(s), 2 Refill(s), Pharmacy: [id number], Depression, major, recurrent, moderate, 157, cm, 08/30/24 10:43:00 EDT, Height, 69.4, kg, 08/30/24 10:43:00 EDT, Dosing Weight Start Date: 08/30/24 Stop Date: 11/28/24 Status: Ordered Start: 02-24-2024 End: 05-24-2024 LORazepam 0.5 mg oral tablet Dose : 0.5 mg = 1 tab(s), Oral, qDay, fill 02/24/24, # 30 tab(s), 2 Refill(s), Pharmacy: [id number], Depression, major, recurrent, moderate, 154, cm, 02/24/24 10:53:00 EDT, Height, 68.2, kg, 02/24/24 10:53:00 EDT, Dosing Weight Start Date: 02/24/24 Stop Date: 05/24/24 Status: Ordered Start: 11-25-2023 take 1 tablet by marianna th once daily LORazepam 0.5 mg oral tablet TAKE 1 TABLET BY MOUTH ONCE DAILY Start Date: 11/25/23 Status: Ordered Start: 08-01-2023 End: 10-30-2023 LORazepam 0.5 mg oral tablet Dose : 0.5 mg = 1 tab(s), Oral, qDay, fill 08/17/23, X 30 day(s), # 30 tab(s), 2 Refill(s), 10/30/23 1:01:00 PM EST, Pharmacy: [id number], Panic state as acute reaction to stress Depression, major, recurrent, moderate, 154, cm, 08/01/23 10:47:00 EDT, Height, 67.4, kg, 08/01/23 10:47:00 EDT, Dosing Weight Start Date: 08/01/23 Stop Date: 10/30/23 Status: Ordered perflutren lipid microspheres 1.3 mL in NaCl (PF) 0.9% 10 mL injection ([employer]) (2 sources) Start: 04-02-2021 End: 07-02-2022 perflutren lipid microspheres 1.3 mL in NaCl (PF) 0.9% 10 mL injection ([employer]) Proctozone HC 2.5% topical cream (2 sources) Start: 12-01-2020 Proctozone HC 2.5% topical cream Apply 1 isabel, Topical, TID, apply in a thin film to the affected skin and rub in gently and completely, # 30 gram(s), 3 Refill(s), Pharmacy: [id number], 155.5, cm, 12/01/20 13:49:00 EST, Height, 73.3, kg, 12/01/20 13:49:00 EST, Dosing Weight Start Date: 12/01/20 Status: Ordered 125 ml sodium chloride 9 mg/ml prefilled syringe (2 sources) Start: 04-02-2021 End: 07-02-2022 sodium chloride 0.9 % (flush) 10 mL (BD POSIFLUSH) tobramycin 3 mg/ml ophthalmic solution (2 sources) Aminoglycoside Antibacterial Start: 03-26-2023 End: 04-05-2023 take 1-2 drop(s) into the eye(s) every four hours tobramycin (TOBREX) 0.3 % ophthalmic solution Indications: Bacterial conjunctivitis Use 1-2 Drops in both eyes every 4 hours for 10 days. 5 mL 0 03/26/2023 04/05/2023 Active Comment on above: Use 1-2 Drops in bot h eyes every 4 hours for 10 days. Trelegy Ellipta 100 mcg-62.5 mcg-25 mcg/inh inhalation powder (8 sources) Start: 05-21-2024 End: 05-16-2025 take 1 dose by mouth once daily Trelegy Ellipta 100 mcg-62.5 mcg-25 mcg/inh inhalation powder Dose = 1 puff(s), Inhalation, qDay, at the same time every day. Following administration, rinse mouth with water after use (do not swallow)., # 3 EA, 3 Refill(s), Pharmacy: [facility], 154, cm, 05/21/24 10:21:00 EDT, Height, kg, 05/21/24 10:21:00 EDT, Dosing Weight Start Date: 05/21/24 Stop Date: 05/16/25 Status: Ordered Start: 02-24-2024 End: 02-18-2025 take 1 dose by mouth once daily Trelegy Ellipta 100 mcg-62.5 mcg-25 mcg/inh inhalation powder Dose = 1 puff(s), Inhalation, qDay, at the same time every day. Following administration, rinse mouth with water after use (do not swallow)., # 3 EA, 3 Refill(s), Pharmacy: [facility], 154, cm, 02/24/24 10:53:00 EDT, Height, kg, 02/24/24 10:53:00 EDT, Dosing Weight Start Date: 02/24/24 Stop Date: 02/18/25 Status: Ordered Start: 07-07-2023 End: 07-01-2024 take 1 dose by mouth once daily Trelegy Ellipta 100 mcg-62.5 mcg-25 mcg/inh inhalation powder Dose = 1 puff(s), Inhalation, qDay, at the same time every day. Following administration, rinse mouth with water after use (do not swallow)., # 3 EA, 3 Refill(s), Pharmacy: [facility], 153.5, cm, 07/07/23 16:52:00 EDT, Height, kg, 07/07/23 16:52:00 EDT, Dosing Weight Start Date: 07/07/23 Stop Date: 07/01/24 Status: Ordered Start: 12-01-2020 take 1 dose by mouth once daily Trelegy Ellipta 100 mcg-62.5 mcg-25 mcg/inh inhalation powder Dose = 1 puff(s), Inhalation, qDay, at the same time every day. Following administration, rinse mouth with water after use (do not swallow)., # 60 EA, 0 Refill(s) Start Date: 12/01/20 Status: Ordered Vitamin C 250 mg oral tablet (2 sources) Start: 07-06-2021 Vitamin C 250 mg oral tablet Dose : 250 mg = 1 tab(s), Oral, qDayM, # 30 tab(s), 0 Refill(s), Pharmacy: [id number], 155, cm, 07/04/21 21:01:00 EDT, Height, kg, 07/04/21 21:01:00 EDT, Dosing Weight Start Date: 07/06/21 Status: Ordered Vitamin D3 (1 source) Start: 02-24-2024 Vitamin D3 See Instructions, 1 qDay, 0 Refill(s) Start Date: 02/24/24 Status: Ordered Vitamin E (3 sources) Start: 02-24-2024 vitamin E See Instructions, 1 Oral daily, 0 Refill(s) Start Date: 02/24/24 Status: Ordered zolpidem tartrate 10 mg oral tablet (12 sources) gamma-Aminobutyric Acid-ergic Agonist Start: 08-30-2024 End: 11-28-2024 zolpidem 10 mg oral tablet Dose : 10 mg = 1 tab(s), Oral, qHS, fill 08/30/24, X 30 day(s), # 30 tab(s), 2 Refill(s), 11/28/24 5:47:00 PM EST, Pharmacy: [facility], Insomnia, 157, cm, 08/30/24 10:43:00 EDT, Height, 69.4, kg, 08/30/24 10:43:00 EDT, Dosing Weight Start Date: 08/30/24 Stop Date: 11/28/24 Status: Ordered Start: 02-24-2024 End: 05-24-2024 zolpidem 5 mg oral tablet Do se : 5 mg = 1 tab(s), Oral, qHS, PRN as needed for insomnia, fill 02/24/24, # 30 tab(s), 2 Refill(s), Pharmacy: [place] [id number], Controlled insomnia, 154, cm, 02/24/24 10:53:00 EDT, Height, 68.2, kg, 02/24/24 10:53:00 EDT, Dosing Weight Start Date: 02/24/24 Stop Date: 05/24/24 Status: Ordered Start: 11-10-2023 End: 02-08-2024 zolpidem 5 mg oral tablet Do se : 5 mg = 1 tab(s), Oral, qHS, PRN as needed for insomnia, fill 11/23/23, # 30 tab(s), 2 Refill(s), Pharmacy: [place] [id number], Controlled insomnia, 154, cm, 11/10/23 11:46:00 EST, Height, 66.8, kg, 11/10/23 11:46:00 EST, Dosing Weight Start Date: 11/10/23 Stop Date: 02/08/24 Status: Ordered Start: 08-01-2023 End: 10-30-2023 zolpidem 5 mg oral tablet Do se : 5 mg = 1 tab(s), Oral, qHS, PRN as needed for insomnia, fill 08/14/23, # 30 tab(s), 2 Refill(s), Pharmacy: [place] [id number], Controlled insomnia, 154, cm, 08/01/23 10:47:00 EDT, Height, 67.4, kg, 08/01/23 10:47:00 EDT, Dosing Weight Start Date: 08/01/23 Stop Date: 10/30/23 Status: Ordered Start: 12-09-2021 End: 03-09-2022 zolpidem 5 mg oral tablet Do se : 5 mg = 1 tab(s), Oral, qHS, PRN as needed for insomnia, # 30 tab(s), 2 Refill(s), Pharmacy: [id number], Controlled insomnia, 154.5, cm, 10/21/21 11:09:00 EST, Height, 65.2, kg, 10/21/21 11:09:00 EST, Dosing Weight Start Date: 12/09/21 Stop Date: 03/09/22 Status: Ordered Comment on above: zolpidem 5 mg tablet TAKE 1 TABLET BY MOUTH AT BEDTIME NEEDED FOR INSOMNIA Completed/Discontinued Medications Medication Drug Class(es) Dates Sig (Normalized) Sig (Original) albuterol 0.833 mg/ml / ipratropium bromide 0.167 mg/ml inhalation solution (15 sources) Anticholinergic, beta2-Adrenergic Agonist Start: 04-06-2021 take 3 mL by inhalation every six hours as needed for wheezing ipratropium-albute rol (DUONEB) 0.5 mg-3 mg(2.5 mg base)/3 mL nebu Indications: Moderate COPD (chronic obstructive pulmonary disease) (HCC) Inhale 3 mL as instructed every 6 hours as needed (wheezing/shortnes s of breath). 120 Vial 3 04/06/2021 Active Comment on above: Inhale 3 mL as instr ucted every 6 hours as needed (wheezing/shortness of breath). ascorbic acid 250 mg oral tablet (6 sources) Vitamin C Start: 07-06-2021 ascorbic acid, vitamin C, (VITAMIN C) 250 mg tablet Take 250 mg by mouth. 0 07/06/2021 Active Comment on above: Take 250 mg by mouth . betamethasone 3 mg/ml / betamethasone acetate 3 mg/ml injectable suspension (1 source) Corticosteroid Start: 03-07-2023 End: 03-07-2023 betamethasone acetate-betamethas one sodium phosphate 6 mg injection (CELESTONE) Start: 03-07-2023 End: 03-07-2023 betamethasone acetate-betame thasone sodium phosphate 6 mg injection (CELESTONE) Budesonide / formoterol (4 sources) Corticosteroid, beta2-Adrenergic Agonist take 2 puff(s) by mouth twice daily budesonide-formoterol (SYMBICORT) 160-4.5 mcg/actuation inhaler Symbicort 160 mcg-4.5 mcg/actuation HFA aerosol inhaler INHALE 2 PUFFS BY MOUTH TWICE A DAY 0 Active Comment on above: Symbicort 160 mcg-4. 5 mcg/actuation HFA aerosol inhaler INHALE 2 PUFFS BY MOUTH TWICE A DAY calcium citrate/vitamin D3 (CALCIUM CITRATE + D ORAL) (15 sources) take 1 tablet by mouth once daily calcium citrate/vitamin D3 (CALCIUM CITRATE + D ORAL) Take 1 tablet by mouth once daily. 0 Active Comment on above: Take 1 tablet by marianna once daily. cholecalciferol 0.125 mg oral tablet (20 sources) Vitamin D Start : 06-12 End: 03-26 take 1 tablet by mouth once daily Cholecalciferol, Vitamin D3, 5,000 unit tab Indications: Hypothyroidism Take 5,000 Units by mouth once daily. 0 06/12/2014 03/26/2023 Discontinued take 1 capsule by mouth every we ek cholecalciferol, Vitamin D3, (VITAMIN D3) 1,250 mcg (50,000 unit) cap capsule Take 50,000 Units by mouth one time a week. 0 Active Comment on above: Take 1 tablet by marianna once daily. Take 50,000 Units by mouth one time a week. Take 5,000 Units by mouth once daily. codeine/butalbital/ASA /caffein (FIORINAL-CODEINE #3 ORAL) (7 sources) codeine/butalbit al/ ASA/caffein (FIORINAL-CODEINE #3 ORAL) Take by mouth. 0 Active Comment on above: Take by mouth. 30 actuat fluticasone furoate 0.1 mg/actuat / umeclidinium 0.0625 mg/actuat / vilanterol 0.025 mg/actuat dry powder inhaler (16 sources) Anticholinergic, Corticosteroid, beta2-Adrenergic Agonist Start: 2 End: 2 take 1 puff(s) by inhalation once daily TRELEGY ELLIPTA 100-62.5-25 mcg inhalation powder INHALE 1 PUFF INSTRUCTED ONCE DAILY. 1 Each 09/20/2022 Active Start: 08-27-2021 take 1 puff(s) by in halation once daily TRELEGY ELLIPTA 100-62.5-25 mcg INHALE 1 PUFF INSTRUCTED ONCE DAILY. 3 Each 3 08/27/2021 Active Comment on above: INHALE 1 PUFF INS TRUCTED ONCE DAILY. folic acid 1 mg oral tablet (15 sources) Start: 1 take 1 tablet by mouth once daily folic acid 1 mg tablet Indications: Folic acid deficiency Take 1 tablet by mouth once daily. 100 tablet 0 07/30/2021 Active Comment on above: Take 1 tablet by marianna th once daily. 10 ml lidocaine hydrochloride 10 mg/ml injection (2 sources) Antiarrhythmic, Amide Local Anesthetic Start: 3 End: 3 lidocaine (PF) 10 mg/mL (1 %) 4 mL injection (XYLOCAINE) Start: 01-17-2022 Lidoderm 5% to pical patch Apply 1 patch(es), Transdermal, Daily, # 30 patch(es), 0 Refill(s), Contusion of right chest wall, 66.6 Start Date: 01/17/22 Status: Ordered lisinopril 10 mg oral tablet (4 sources) Angiotensin Converting Enzyme Inhibitor lisinopril (ZESTRIL) 10 mg tablet Take 10 mg by mouth. 0 Active Comment on above: Take 10 mg by mouth. Magnesium (15 sources) take 1 tablet by mouth once daily MAGNESIUM ORAL Take 1 tablet by mouth once daily. 0 Active Comment on above: Take 1 tablet by marianna th once daily. melatonin 5 mg oral capsule (15 sources) take 1 capsule by mouth once daily at bedtime Melatonin 5 mg cap Take 1 capsule by mouth daily at bedtime. 0 Active Comment on above: Take 1 capsule by mo ut daily at bedtime. meloxicam 15 mg oral tablet (1 source) Nonsteroidal Anti-inflammatory Drug Start: 3 take 1 tablet by mouth once daily meloxicam (MOBIC) 15 mg tablet Indications: Chronic right shoulder pain , Shoulder impingement Take 1 tablet by mouth once daily. 30 tablet 1 04/11/2023 Active Comment on above: Take 1 tablet by marianna th once daily. jh-ci-fo1-dha-epa-f jhoana-lut-adama (OCUVITE ADULT 50 PLUS) 250 mg (90 mg-160 mg) cap (2 sources) ku-oq-ha7-dha-ep a-fi sh-lut-adama (OCUVITE ADULT 50 PLUS) 250 mg (90 mg-160 mg) cap Take by mouth once daily. 0 Active Comment on above: Take by mouth once d aily. Nebulizers (11 sources) Start: 0 End: 3 Nebulizers 1 Each as needed. 1 Kit 0 03/12/2020 03/26/2023 Discontinued Start: 03-12-2020 Nebulizers 1 E ach as needed. 1 Kit 0 03/12/2020 Active Comment on above: 1 Each as needed. predniSONE 10 mg oral tablet (1 source) Start: 04-11-20 23 predniSONE (DELTASONE) 10 mg tablet Indications: Chronic right shoulder pain , Shoulder impingement Take 6 pills (all at once) on day 1, 5 pills on day 2, 4 pills on day 3, 3 pills on day 4, 2 pills on day 5, and 1 pill on day 6. 21 tablet 0 04/11/2023 Active Comment on above: Take 6 pills (all at once) on day 1, 5 pills on day 2, 4 pills on day 3, 3 pills on day 4, 2 pills on day 5, and 1 pill on day 6. tiotropium 0.018 mg inhalation powder (4 sources) Anticholinergic take 1 capsule by inhalation once daily tiotropium (SPIRIVA) 18 mcg inhalation capsule Spiriva with HandiHaler 18 mcg and inhalation capsules INHALE 1 CAPSULE INSTRUCTED ONCE DAILY. 0 Active Comment on above: Spiriva with HandiHa ler 18 mcg and inhalation capsules INHALE 1 CAPSULE INSTRUCTED ONCE DAILY. Vitamin D3 125 mcg (5000 intl units) oral capsule (2 sources) Start: 05-21-20 End: 06-20-20 Vitamin D3 125 mcg (5000 intl units) oral capsule Dose : 125 mcg = 1 cap(s), Oral, qDay, # 90 cap(s), 3 Refill(s), Pharmacy: [facility], Secondary hyperparathyroidis m, not elsewhere classified, 154, cm, 05/21/24 10:21:00 EDT, Height, kg, 05/21/24 10:21:00 EDT, Dosing Weight Start Date: 05/21/24 Stop Date: 06/20/24 Status: Ordered Problems Active Problems Problem Classification Problem Date Documented Date Episodic/Chronic Abdominal hernia (15 sources) Hiatal hernia; Translations: [Diaphragmatic hernia without obstruction or gangrene] 10-02-2020 Episodic Anxiety disorders (3 sources) Anxiety 02-24-2024 Chronic Bacterial infection; unspecified site (15 sources) Rheumatic fever; Translations: [Rheumatic fever without heart involvement] 10-02-2020 Episodic Chronic obstructive pulmonary disease and bronchiectasis (20 sources) Moderate chronic obstructive pulmonary disease; Translations: [Chronic obstructive lung disease] Onset: 4 08-20-2019 Chronic Conduction disorders (17 sources) Right bundle branch block; Translations: [Unspecified right bundle-branch block] Onset: 0 10-02-2020 Chronic Coronary atherosclerosis and other heart disease (17 sources) Coronary arteriosclerosis; Translations: [Atherosclerotic heart disease of [place] coronary artery without angina pectoris] Onset: 0 10-02-2020 Chronic Deficiency and other anemia (8 sources) Iron deficiency anemia 07-13-2021 Episodic Disorders of lipid metabolism (17 sources) Mixed hyperlipidemia; Translations: [Mixed hyperlipidemia] Onset: 0 04-02-2020 Chronic Diverticulosis and diverticulitis (15 sources) Diverticulitis; Translations: [Diverticulitis of intestine, part unspecified, without perforation or abscess without bleeding] 10-02-2020 Chronic E Codes: Fall (1 source) Fall; Translations: [Unspecified fall, initial encounter] Onset: 2 Episodic Esophageal disorders (8 sources) Gastroesophageal reflux disease without esophagitis 12-05-2019 Chronic Essential hypertension (20 sources) Benign essential hypertension; Translations: [Benign hypertension] Onset: 0 12-05-2019 Chronic Headache; including migraine (20 sources) Chronic tension-type headache; Translations: [Migraine without aura, not refractory ] Onset: 4 06-02-2020 Chronic Headache; including migraine (1 source) Headache; Translations: [Headache, unspecified] Onset: 3 Episodic Heart valve disorders (9 sources) Aortic valve regurgitation; Translations: [Nonrheumatic aortic (valve) insufficiency] Onset: 3 Chronic Heart valve disorders (15 sources) Heart murmur; Translations: [Cardiac murmur, unspecified] 10-02-2020 Episodic Inflammation; infection of eye (except that caused by tuberculosis or sexually transmitteddisease) (1 source) Bacterial conjunctivitis; Translations: [Unspecified conjunctivitis] Episodic Joint disorders and dislocations; trauma-related (17 sources) Dislocation of temporomandibular joint; Translations: [Dislocation of jaw, unspecified side, initial encounter] Onset: 0 10-02-2020 Episodic Malaise and fatigue (15 sources) Fatigue; Translations: [Chronic fatigue, unspecified] Onset: 0 10-02-2020 Chronic Mood disorders (16 sources) Recurrent major depressive episodes, moderate ; Translations: [Depressive disorder] Onset: 3 08-20-2019 Chronic Mood disorders (1 source) Mood disorders; Translations: [Depression, unspecified depression type] Onset: 3 Nonmalignant breast conditions (15 sources) Breast lump; Translations: [Unspecified lump in unspecified breast] 10-02-2020 Episodic Osteoporosis (20 sources) Primary osteoporosis; Translations: [Osteoporosis] Onset: 4 08-20-2019 Chronic Other connective tissue disease (1 source) Radial styloid tenosynovitis; Translations: [Radial styloid tenosynovitis [de [place]]] Episodic Other connective tissue disease (1 source) Other symptoms and signs involving the musculoskeletal system; Translations: [Other symptoms and signs involving the musculoskeletal system] Episodic Other endocrine disorders (6 sources) Secondary hyperparathyroidism 05-02-2023 Chronic Other gastrointestinal disorders (15 sources) Irritable bowel syndrome; Translations: [Irritable bowel syndrome without diarrhea] Onset: 4 09-12-2014 Chronic Other infections; including parasitic (8 sources) H/O: viral illness 08-20-2019 Episodic Other infections; including parasitic (15 sources) Lyme disease; Translations: [Lyme disease, unspecified] 02-11-2015 Episodic Other injuries and conditions due to external causes (1 source) Injury of head; Translations: [Unspecified injury of head, initial encounter] Onset: 2 Episodic Other lower respiratory disease (1 source) Pleuritic pain; Translations: [Pleurodynia] Onset: 2 Episodic Other nervous system disorders (1 source) Carpal tunnel syndrome, bilateral upper limbs; Translations: [Bilateral carpal tunnel syndrome] Onset: 3 Chronic Other nervous system disorders (2 sources) Bilateral carpal tunnel syndrome; Translations: [Carpal tunnel syndrome, bilateral upper limbs] Chronic Other non-traumatic joint disorders (8 sources) Arthritis of hand 08-20-2019 Chronic Other non-traumatic joint disorders (2 sources) Disorder of shoulder; Translations: [Other specified joint disorders, unspecified shoulder] Episodic Other non-traumatic joint disorders (2 sources) Chronic pain of right upper limb; Translations: [Pain in right shoulder] Episodic Other non-traumatic joint disorders (1 source) Pain of right shoulder joint; Translations: [Pain in right shoulder] Episodic Other non-traumatic joint disorders (1 source) Shoulder stiff; Translations: [Stiffness of right shoulder, not elsewhere classified] Episodic Other non-traumatic joint disorders (2 sources) Rotator cuff arthropathy of right shoulder 08-30-2024 Episodic Other nutritional; endocrine; and metabolic disorders (6 sources) Overweight in adulthood with body mass index of 25 or more but less than 30 05-02-2023 Episodic Other screening for suspected conditions (not mental disorders or infectious disease) (15 sources) Serum iron raised; Translations: [Abnormal level of blood mineral] 10-02-2020 Episodic Other upper respiratory infections (2 sources) Acute upper respiratory infection, unspecified; Translations: [Acute upper respiratory infection, unspecified] Onset: 4 Episodic Residual codes; unclassified (20 sources) Insomnia; Translations: [Insomnia, unspecified] Onset: 5 06-02-2020 Episodic Residual codes; unclassified (1 source) Pain; Translations: [Pain, unspecified] 12-27-2022 Episodic Screening and history of mental health and substance abuse codes (16 sources) Tobacco use and exposure - finding; Translations: [Personal history of nicotine dependence] 10-02-2020 Episodic Spondylosis; intervertebral disc disorders; other back problems (8 sources) Cervical spondylosis 08-20-2019 Chronic Spondylosis; intervertebral disc disorders; other back problems (8 sources) Spinal stenosis of lumbar region 08-20-2019 Episodic Superficial injury; contusion (1 source) Contusion of right chest wall; Translations: [Contusion of right front wall of thorax, initial encounter] Onset: Episodic Thyroid disorders (20 sources) Hypothyroidism; Translations: [Hypothyroidism, unspecified] Onset: 4 12-05-2019 Chronic Viral infection (20 sources) Herpes simplex; Translations: [Herpesviral infection, unspecified] Onset: 4 06-12-2014 Episodic Past or Other Problems Problem Classification Problem Date Documented Date Episodic/Chronic Deficiency and other anemia (16 sources) Anemia; Translations: [Anemia, unspecified] Onset: 06-12-2014 11-16-2021 Episodic Deficiency and other anemia (1 source) Anemia, unspecified; Translations: [Anemia, unspecified type] Onset: 11-17-2021 Episodic Influenza (15 sources) Influenza due to Influenza A virus subtype H1N1; Translations: [Influenza due to other identified influenza virus with other respiratory manifestations] Onset: 11-21-2011 10-02-2020 Episodic Neoplasms of unspecified nature or uncertain behavior (15 sources) Thrombocytosis; Translations: [Thrombocytosis] Onset: 09-02-2014 09-02-2014 Episodic Nutritional deficiencies (15 sources) Folic acid deficiency; Translations: [Deficiency of other specified B group vitamins] Onset: 07-30-2021 07-30-2021 Episodic Other connective tissue disease (15 sources) Capsulitis; Translations: [Other enthesopathies, not elsewhere classified] Onset: 12-24-2014 11-16-2021 Episodic Residual codes; unclassified (15 sources) History of cardiac catheterization; Translations: [Other specified postprocedural states] Onset: 09-21-2012 10-02-2020 Episodic Residual codes; unclassified (20 sources) Past history of procedure; Translations: [Personal history of other medical treatment] Onset: 03-13-2009 10-02-2020 Episodic Residual codes; unclassified (1 source) Pain, unspecified; Translations: [Pain] Onset: 12-27-2022 Episodic Results Test Name Value Interpretation Reference Range Facility US ABDOMEN COMPLETEon 2023 US ABDOMEN COMPLETE ORIGINAL EXAMINATION: COMPLETE ABDOMINAL [id number]/25/2024 9:59 am ULTRASOUND ABDOMEN COMPLETE, TECHNIQUE: This report is based on interpretation of permanently recorded ultrasound images. COMPARISON: CT 01/17/2022 HISTORY: ORDERING SYSTEM PROVIDED HISTORY: Reason for Exam: UPPER ABD PAIN, FINDINGS: The liver is essentially normal in size and echogenicity. No focal abnormality is seen.. There is no intrahepatic bile duct dilatation. The common duct is 12 mm at the lashonda hepatis. It seems dilated through its entire length. This is similar to the earlier CT. No stone is seen in the visualized portions. The adjacent main portal vein shows normal antegrade flow direction. The gallbladder is not seen surgically absent.. The pancreas as visualized shows no focal mass. Mild dilatation of the pancreatic duct is considered normal for age. Some portions are obscured by bowel gas.. The spleen is normal in size and echogenicity. There are echogenic splenic granulomas of no clinical significance. No ascites. Limited survey images of the kidneys show normal cortical thickness and echogenicity. No pelvocaliectasis. . The aorta and IVC as visualized are normal in caliber. Small portions are obscured by bowel gas artifacts.. The patient has a palpable lump in the periumbilical region. Scanning of this abnormality shows an ovoid well-circumscribed mass in the deep subcutaneous space that is 36 x 11 x 25 mm. The mass is isoechoic to the adjacent subcutaneous fat. No significant blood flow. There is no defect in the underlying abdominal wall without and with Valsalva to indicate hernia. No corresponding mass is evident on the earlier CT. IMPRESSION: No acute abnormality is seen. Palpable lump in the periumbilical region does not seem to be a periumbilical hernia. The sonographic appearance would be compatible with a fat containing mass such as lipoma. Ultrasound however cannot be histologically specific and cannot predict biological behavior of soft tissue lesions. The need for follow-up evaluation or intervention should be predicated on clinical criteria including pain and interval increase in size. Interpreted by: Fredi Hoffmann MD Preliminary Report By: Fredi Hoffmann MD Electronically signed By Fredi Hoffmann MD Dictated Date: 09/14/2024 2:25:06 PM Prelim Date: 09/14/2024 2:29:19 PM Sign Date: 09/14/2024 2:29:19 PM Ordering Provider: LANEY [facility] .Auto Diffon 09-11-2024 Basophil, Absolute 0.1 10 3/mcL Normal 0.0-0.2 [facility] Comment on above: Performed By: #### A DIFF, CBC, YESY, LIP, GFR, ANEU, CMP #### [address] [address] Basophils/100 WBC (Bld) 1.1 % Normal 0.0-2.5 [facility] Comment on above: Performed By: #### A DIFF, CBC, YESY, LIP, GFR, ANEU, CMP #### [address] [address] Eosinophil, Absolute 0.1 10 3/mcL Normal 0.0-0.7 [facility] Comment on above: Performed By: #### A DIFF, CBC, YESY, LIP, GFR, ANEU, CMP #### [address] [address] Eosinophils/100 WBC (Bld) 0.9 % Normal 0.0-7.0 [facility] Comment on above: Performed By: #### A DIFF, CBC, YESY, LIP, GFR, ANEU, CMP #### [address] [address] Lymphocyte, Absolute 1.6 10 3/mcL Normal 0.9-4.3 [facility] Comment on above: Performed By: #### A DIFF, CBC, YESY, LIP, GFR, ANEU, CMP #### [address] [address] Lymphocytes/100 WBC (Bld) 18.5 % Low 20.0-40.0 [facility] Comment on above: Performed By: #### A DIFF, CBC, YESY, LIP, GFR, ANEU, CMP #### [address] [address] Monocyte, Absolute 0.8 10 3/mcL Normal 0.1-1.4 [facility] Comment on above: Performed By: #### A DIFF, CBC, YESY, LIP, GFR, ANEU, CMP #### [address] [address] Monocytes/100 WBC (Bld) 8.9 % Normal 2.0-13.0 [facility] Comment on above: Performed By: #### A DIFF, CBC, YESY, LIP, GFR, ANEU, CMP #### [address] [address] Neutrophils/100 WBC (Bld) 70.6 % Normal 50.0-75.0 [facility] Comment on above: Performed By: #### A DIFF, CBC, YESY, LIP, GFR, ANEU, CMP #### [place] [id number] [place], [place] [address] .GFRon 09-11-2024 GFR 97 ml/min/1.73sqm Normal [facility] Comment on above: Result Comment: GFR Population mean for , Non- Americans Ages 20-29 = 116 mL/min/1.73 sq.m. Ages 30-39 = 107 mL/min/1.73 sq.m. Ages 40-49 = 99 mL/min/1.73 sq.m. Ages 50-59 = 93 mL/min/1.73 sq.m. Ages 60-69 = 85 mL/min/1.73 sq.m. Ages 70+ = 75 mL/min/1.73 sq.m. Chronic Kidney Disease: Less than 60 mL/min/1.73 square meters End Stage Renal Disease: Less than 15 mL/min/1.73 square meters Performed By: #### A DIFF, CBC, YESY, LIP, GFR, ANEU, CMP #### [address] [address] GFR Non- 80 ml/min/1.73sqm Normal [facility] Comment on above: Result Comment: GFR Population mean for , Non- Americans Ages 20-29 = 116 mL/min/1.73 sq.m. Ages 30-39 = 107 mL/min/1.73 sq.m. Ages 40-49 = 99 mL/min/1.73 sq.m. Ages 50-59 = 93 mL/min/1.73 sq.m. Ages 60-69 = 85 mL/min/1.73 sq.m. Ages 70+ = 75 mL/min/1.73 sq.m. Chronic Kidney Disease: Less than 60 mL/min/1.73 square meters End Stage Renal Disease: Less than 15 mL/min/1.73 square meters Performed By: #### A DIFF, CBC, YESY, LIP, GFR, ANEU, CMP #### [place] [address] .NEUABSon 09-11-2024 Neutrophil, Absolute 6.2 10 3/mcL Normal 2.3-8.1 [facility] Comment on above: Performed By: #### A DIFF, CBC, YESY, LIP, GFR, ANEU, CMP #### [place] [address] AMYon 09-11-2024 Amylase [Catalytic activity/Vol] 69 U/L Normal 25-115 [facility] Comment on above: Performed By: #### A DIFF, CBC, YESY, LIP, GFR, ANEU, CMP #### [place] [address] CBCon 09-11-2024 Erythrocyte distribution width (RBC) [Ratio] 13.4 % Normal 11.5-15.5 [facility] Comment on above: Performed By: #### A DIFF, CBC, YESY, LIP, GFR, ANEU, CMP #### [place] [address] Hematocrit (Bld) [Volume fraction] 42.2 % Normal 34.0-46.0 [facility] Comment on above: Performed By: #### A DIFF, CBC, YESY, LIP, GFR, ANEU, CMP #### [place] [address] Hgb 14.2 G/dL Normal 12.0-16.0 [facility] Comment on above: Performed By: #### A DIFF, CBC, YESY, LIP, GFR, ANEU, CMP #### [place] [address] MCH (RBC) [Entitic mass] 33.2 pg High 27.0-33.0 [facility] Comment on above: Performed By: #### A DIFF, CBC, YESY, LIP, GFR, ANEU, CMP #### [place] [address] MCHC 33.6 G/dL Normal 32.0-36.0 [facility] Comment on above: Performed By: #### A DIFF, CBC, YESY, LIP, GFR, ANEU, CMP #### [address] [address] MCV (RBC) [Entitic vol] 98.6 fL Normal 80.0-99.0 [facility] Comment on above: Performed By: #### A DIFF, CBC, YESY, LIP, GFR, ANEU, CMP #### [address] [address] Platelet 396 10 3/mcL Normal 150-450 [facility] Comment on above: Performed By: #### A DIFF, CBC, YESY, LIP, GFR, ANEU, CMP #### [address] [address] Platelet mean volume (Bld) [Entitic vol] 7.0 fL Normal 6.6-10.5 [facility] Comment on above: Performed By: #### A DIFF, CBC, YESY, LIP, GFR, ANEU, CMP #### [address] [address] RBC 4.28 10 6/mcL Normal 4.10-5.30 [facility] Comment on above: Performed By: #### A DIFF, CBC, YESY, LIP, GFR, ANEU, CMP #### [address] [address] WBC 8.7 10 3/mcL Normal 4.5-10.8 [facility] Comment on above: Performed By: #### A DIFF, CBC, YESY, LIP, GFR, ANEU, CMP #### [address] [address] CMPon 09-11-2024 Albumin Level 3.7 G/dL Normal 3.4-4.8 [facility] Comment on above: Performed By: #### A DIFF, CBC, YESY, LIP, GFR, ANEU, CMP #### [place] [id number] Albumin/Globulin [Mass ratio] 1.3 {ratio} Normal 1.1-2.5 [facility] Comment on above: Performed By: #### A DIFF, CBC, YESY, LIP, GFR, ANEU, CMP #### [address] [address] ALP [Catalytic activity/Vol] 133 U/L Normal 40-135 [facility] Comment on above: Performed By: #### A DIFF, CBC, YESY, LIP, GFR, ANEU, CMP #### [address] [address] ALT [Catalytic activity/Vol] 62 U/L High 14-59 [facility] Comment on above: Performed By: #### A DIFF, CBC, YESY, LIP, GFR, ANEU, CMP #### [place] [address] AST [Catalytic activity/Vol] 50 U/L High 10-40 [facility] Comment on above: Performed By: #### A DIFF, CBC, YESY, LIP, GFR, ANEU, CMP #### [address] [address] Bili Total 0.2 mg/dL Normal 0.2-1.0 [facility] Comment on above: Result Comment: Use of this assay is not recommended for patients undergoing treatment with eltrombopag due to the potential for falsely elevated results. Performed By: #### A DIFF, CBC, YESY, LIP, GFR, ANEU, CMP #### [address] [address] BUN/Creatinine Ratio 17 ratio Normal 7-27 [facility] Comment on above: Performed By: #### A DIFF, CBC, YESY, LIP, GFR, ANEU, CMP #### [address] [address] Calcium [Mass/Vol] 9.1 mg/dL Normal 8.4-10.2 [facility] Comment on above: Performed By: #### A DIFF, CBC, YESY, LIP, GFR, ANEU, CMP #### [address] [address] Chloride [Moles/Vol] 100 mmol/L Normal 98-107 [facility] Comment on above: Performed By: #### A DIFF, CBC, YESY, LIP, GFR, ANEU, CMP #### [place] [address] CO2 [Moles/Vol] 35 mmol/L High 23-31 [facility] Comment on above: Performed By: #### A DIFF, CBC, YESY, LIP, GFR, ANEU, CMP #### [place] [address] Creatinine [Mass/Vol] 0.71 mg/dL Normal 0.55-1.02 [facility] Comment on above: Result Comment: Test ing performed on FileThis Dimension EXL analyzer using a modified kinetic Jac technique. Performed By: #### A DIFF, CBC, YESY, LIP, GFR, ANEU, CMP #### [place] [address] Electrolyte Balance 1.0 mEq/L Low 4.0-15.0 [facility] Comment on above: Performed By: #### A DIFF, CBC, YESY, LIP, GFR, ANEU, CMP #### [place] [address] Globulin 2.9 G/dL Normal [facility] Comment on above: Performed By: #### A DIFF, CBC, YESY, LIP, GFR, ANEU, CMP #### [place] [address] Glucose [Mass/Vol] 111 mg/dL High 83-110 [facility] Comment on above: Performed By: #### A DIFF, CBC, YESY, LIP, GFR, ANEU, CMP #### [place] [address] Potassium [Moles/Vol] 4.1 mmol/L Normal 3.5-5.1 [facility] Comment on above: Performed By: #### A DIFF, CBC, YESY, LIP, GFR, ANEU, CMP #### [place] [address] Sodium [Moles/Vol] 136 mmol/L Normal 136-145 [facility] Comment on above: Performed By: #### A DIFF, CBC, YESY, LIP, GFR, ANEU, CMP #### [place] [id number] [place], [place] [address] Total Protein 6.6 G/dL Normal 6.4-8.2 [facility] Comment on above: Performed By: #### A DIFF, CBC, YESY, LIP, GFR, ANEU, CMP #### [place] [id number] [place], [place] [address] Urea nitrogen [Mass/Vol] 12 mg/dL Normal 7-18 [facility] Comment on above: Performed By: #### A DIFF, CBC, YESY, LIP, GFR, ANEU, CMP #### [place] [id number] [place], [place] [address] LABORATORYOrdered By: SYSTEM SYSTEM on 09-11-2024 Albumin BCP dye [Mass/Vol] 3.7 G/dL Normal 3.4 - 4.8 G/dL AO ADM SS Albumin/Globulin [Mass ratio] 1.3 {ratio} Normal 1.1 - 2.5 ratio AO ADM SS ALP [Catalytic activity/Vol] 133 U/L Normal 40 - 135 U/L AO ADM SS ALT With P-5'-P [Catalytic activity/Vol] 62 U/L High 14 - 59 U/L AO ADM SS Amylase [Catalytic activity/Vol] 69 U/L Normal 25 - 115 U/L AO ADM SS AST With P-5'-P [Catalytic activity/Vol] 50 U/L High 10 - 40 U/L AO ADM SS Basophils (Bld) [#/Vol] 0.1 103/mcL Normal 0.0 - 0.2 10^3/mcL AO Workflow SS Basophils/100 WBC (Bld) 1.1 % Normal 0.0 - 2.5 % AO Workflow SS Bilirubin [Mass/Vol] 0.2 mg/dL Normal 0.2 - 1 .0 mg/dL AO ADM SS Comment on above: Interpretive Data: U se of this assay is not recommended for patients undergoing treatment with eltrombopag due to the potential for falsely elevated results. Calcium [Mass/Vol] 9.1 mg/dL Normal 8.4 - 10. 2 mg/dL AO ADM SS Chloride [Moles/Vol] 100 mmol/L Normal 98 - 10 7 mmol/L AO ADM SS CO2 [Moles/Vol] 35 mmol/L High 23 - 31 mmol/L AO ADM SS Creatinine [Mass/Vol] 0.71 mg/dL Normal 0.55 - 1.02 mg/dL AO ADM SS Comment on above: Interpretive Data: T esting performed on Siemens Dimension EXL analyzer using a modified kinetic Jac technique. Electrolyte Balance 1.0 mEq/L Low 4.0 - 15 .0 mEq/L AO ADM SS Eosinophil, Absolute 0.1 103/mcL Normal 0.0 - 0 .7 10^3/mcL AO Workflow SS Eosinophils/100 WBC (Bld) 0.9 % Normal 0.0 - 7.0 % AO Workflow SS Erythrocyte distribution width (RBC) [Ratio] 13.4 % Normal 11.5 - 15.5 % AO Workflow SS GFR/1.73 sq M.predicted among blacks MDRD (S/P/Bld) [Vol rate/Area] 97 ml/min/1.73sqm Invalid Interpretation Code AO Chemistry S Comment on above: Interpretive Data: GFR Population mean for , Non- Americans Ages 20-29 = 116 mL/min/1.73 sq.m. Ages 30-39 = 107 mL/min/1.73 sq.m. Ages 40-49 = 99 mL/min/1.73 sq.m. Ages 50-59 = 93 mL/min/1.73 sq.m. Ages 60-69 = 85 mL/min/1.73 sq.m. Ages 70+ = 75 mL/min/1.73 sq.m. Chronic Kidney Disease: Less than 60 mL/min/1.73 square meters End Stage Renal Disease: Less than 15 mL/min/1.73 square meters GFR/1.73 sq M.predicted among non-blacks MDRD (S/P/Bld) [Vol rate/Area] 80 ml/min/1.73sqm Invalid Interpretation Code AO Chemistry S Comment on above: Interpretive Data: GFR Population mean for , Non- Americans Ages 20-29 = 116 mL/min/1.73 sq.m. Ages 30-39 = 107 mL/min/1.73 sq.m. Ages 40-49 = 99 mL/min/1.73 sq.m. Ages 50-59 = 93 mL/min/1.73 sq.m. Ages 60-69 = 85 mL/min/1.73 sq.m. Ages 70+ = 75 mL/min/1.73 sq.m. Chronic Kidney Disease: Less than 60 mL/min/1.73 square meters End Stage Renal Disease: Less than 15 mL/min/1.73 square meters Globulin 2.9 G/dL Invalid Interpretation Code AO ADM SS Glucose [Mass/Vol] 111 mg/dL High 83 - 110 mg/dL AO ADM SS Hematocrit (Bld) [Volume fraction] 42.2 % Normal 34.0 - 46.0 % AO Workflow SS Hemoglobin (Bld) [Mass/Vol] 14.2 G/dL Normal 12.0 - 16.0 G/dL AO Workflow SS Lipase [Catalytic activity/Vol] 92 U/L High 16 - 77 U/L AO ADM SS Lymphocytes (Bld) [#/Vol] 1.6 103/mcL Normal 0.9 - 4.3 10^3/mcL AO Workflow SS Lymphocytes/100 WBC (Bld) 18.5 % Low 20.0 - 40.0 % AO Workflow SS MCH (RBC) [Entitic mass] 33.2 pg High 27.0 - 33.0 pg AO Workflow SS MCHC 33.6 G/dL Normal 32.0 - 36.0 G/dL AO Workflow SS MCV (RBC) [Entitic vol] 98.6 fL Normal 80.0 - 99.0 fL AO Workflow SS Monocytes (Bld) [#/Vol] 0.8 103/mcL Normal 0.1 - 1.4 10^3/mcL AO Workflow SS Monocytes/100 WBC (Bld) 8.9 % Normal 2.0 - 13.0 % AO Workflow SS Neutrophils (Bld) [#/Vol] 6.2 103/mcL Normal 2.3 - 8.1 10^3/mcL AO Workflow SS Neutrophils/100 WBC (Bld) 70.6 % Normal 50.0 - 75.0 % AO Workflow SS Platelet mean volume (Bld) [Entitic vol] 7.0 fL Normal 6.6 - 10.5 fL AO Workflow SS Platelets (Bld) [#/Vol] 396 103/mcL Normal 150 - 450 10^3/mcL AO Workflow SS Potassium [Moles/Vol] 4.1 mmol/L Normal 3.5 - 5.1 mmol/L AO ADM SS Protein [Mass/Vol] 6.6 G/dL Normal 6.4 - 8.2 G/dL AO ADM SS RBC (Bld) [#/Vol] 4.28 106/mcL Normal 4.10 - 5.3 0 10^6/mcL AO Workflow SS Sodium [Moles/Vol] 136 mmol/L Normal 136 - 145 mmol/L AO ADM SS Urea nitrogen [Mass/Vol] 12 mg/dL Normal 7 - 18 mg/dL AO ADM SS Urea nitrogen/Creatinine [Mass ratio] 17 ratio Normal 7 - 27 ratio AO ADM SS WBC (Bld) [#/Vol] 8.7 103/mcL Normal 4.5 - 10.8 10^3/mcL AO Workflow SS LIPon 09-11-2024 Lipase Level 92 U/L High 16 [facility] Comment on above: Performed By: #### A DIFF, CBC, YESY, LIP, GFR, ANEU, CMP #### [place] [address] CVFLURVon 08-03-2024 FLU A PCR Negative Normal Negative [facility] Comment on above: Performed By: #### C VFLURV #### [place] [address] FLU B PCR Negative Normal Negative [facility] Comment on above: Performed By: #### C VFLURV #### [place] [address] RSV PCR Negative Normal Negative [facility] Comment on above: Performed By: #### C VFLURV #### [place] [address] SARS-CoV-2 (COVID-19) RNA JAMAL+probe Ql (Unsp spec) Negative Normal Negative [facility] Comment on above: Result Comment: Resu lts from the Xpert Xpress CoV-2/Flu/RSV plus test should be correlated with the clinical history, epidemiological data, and other data available to the clinical evaluating the patient. Performance of the Xpert Xpress CoV-2/Flu/RSV plus test has only been established in nasopharyngeal swab specimen. Erroneous test results might occur from improper specimen collection, failure to follow the recommended sample collection, handling and storage procedures, technical error, or sample mix-up. False negative results may occur if a virus is present at a level below the analytical limit of detection. Viral nucleic acid may persist in vivo, independent of virus viability. Detection of analyte target(s) does not imply that the corresponding virus(es) are infectious or are the causative agents for clinical symptoms. Recent patient exposure to FluMist or other live attenuated influenza vaccines may cause inaccurate positive results. Performed By: #### C VFRV #### [address] [place], [place] [address] MRI SHOULDER W/O CONTRAST [facility] 03-07-2024 MRI SHOULDER W/O CONTRAST RIGHT ORIGINAL EXAMINATION: MRI OF THE RIGHT SHOULDER WITHOUT CONTRAST 03/07/2024 2:26 pm TECHNIQUE: Multiplanar multisequence MRI of the right shoulder was performed without the administration of intravenous contrast. COMPARISON: None. HISTORY: ORDERING SYSTEM PROVIDED HISTORY: Reason for Exam: chronic right shoulder pain with decreased ROM. FINDINGS: Acromioclavicular spurring noted. Lateral downsloping of the acromion. Small volume of split in the subacromial subdeltoid bursa. Supraspinatus and infraspinatus tendinosis seen. There is low-grade interstitial and articular surface tearing of the distal supraspinatus tendon. Infraspinatus tendinosis. There is subscapularis tendinosis and interstitial tearing. There appears to be some calcification of the distal subscapularis tendon. The teres minor tendon is intact. The long head biceps tendon is degenerated. Significant glenohumeral cartilage loss noted. There is labral degeneration/tearing there is likely a SLAP tear. The glenohumeral ligament complexes appear intact but are degenerated. Subchondral cysts seen at the greater tuberosity. No asymmetric muscle atrophy. IMPRESSION: 1. 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 2. Subacromial subdeltoid bursitis. 3. Supraspinatus and infraspinatus tendinosis. There is low-grade interstitial and articular surface tearing of the supraspinatus tendon. 4. Subscapularis tendinosis and interstitial tearing. There appears to be calcific tendinosis of the distal subscapularis tendon. 5. Significant glenohumeral cartilage loss. There is labral degeneration/tearing, likely with a SLAP tear. Interpreted by: Mark Kwong MD Preliminary Report By: Mark Kwong MD Electronically signed By Mark Kwong MD Dictated Date: 03/07/2024 4:11:33 PM Prelim Date: 03/07/2024 4:15:55 PM Sign Date: 03/07/2024 4:15:55 PM Ordering Provider: NOBLE Loyola [facility] ([place] .Auto Diffon 09-27-2023 Basophil, Absolute 0.1 10 3/mcL Normal 0.0-0.2 [facility] ([place]) Comment on above: Performed By: #### G FR, TROPHS, CBC, ANEU, LIP, ADIFF, CMP, MDW #### [address] [address] Basophils/100 WBC (Bld) 0.8 % Normal 0.0-2.5 [facility] ([place]) Comment on above: Performed By: #### G FR, TROPHS, CBC, ANEU, LIP, ADIFF, CMP, MDW #### [address] [address] Eosinophil, Absolute 0.1 10 3/mcL Normal 0.0-0.4 [facility] ([place]) Comment on above: Performed By: #### G FR, TROPHS, CBC, ANEU, LIP, ADIFF, CMP, MDW #### [address] [address] Eosinophils/100 WBC (Bld) 0.8 % Normal 0.0-7.0 [facility] ([place] Comment on above: Performed By: #### G FR, TROPHS, CBC, ANEU, LIP, ADIFF, CMP, MDW #### [address] [address] Lymphocyte, Absolute 1.4 10 3/mcL Normal 0.8-3.9 [facility] ([place]) Comment on above: Performed By: #### G FR, TROPHS, CBC, ANEU, LIP, ADIFF, CMP, MDW #### [address] [address] Lymphocytes/100 WBC (Bld) 15.2 % Normal 10.0-50.0 [facility] ([place] Comment on above: Performed By: #### G FR, TROPHS, CBC, ANEU, LIP, ADIFF, CMP, MDW #### [address] [address] Monocyte, Absolute 0.8 10 3/mcL Normal 0.2-1.0 [facility] ([place] Comment on above: Performed By: #### G FR, TROPHS, CBC, ANEU, LIP, ADIFF, CMP, MDW #### [address] [address] Monocytes/100 WBC (Bld) 8.3 % Normal 1.7-13.0 [facility] ([place] Comment on above: Performed By: #### G FR, TROPHS, CBC, ANEU, LIP, ADIFF, CMP, MDW #### [address] [address] Neutrophils/100 WBC (Bld) 74.9 % Normal 37.0-80.0 [facility] ([place] Comment on above: Performed By: #### G FR, TROPHS, CBC, ANEU, LIP, ADIFF, CMP, MDW #### [address] [address] .GFRon 09-27-2023 GFR 72 ml/min/1.73sqm Normal [facility] ([place]) Comment on above: Result Comment: GFR Population mean for , Non- Americans Ages 20-29 = 116 mL/min/1.73 sq.m. Ages 30-39 = 107 mL/min/1.73 sq.m. Ages 40-49 = 99 mL/min/1.73 sq.m. Ages 50-59 = 93 mL/min/1.73 sq.m. Ages 60-69 = 85 mL/min/1.73 sq.m. Ages 70+ = 75 mL/min/1.73 sq.m. Chronic Kidney Disease: Less than 60 mL/min/1.73 square meters End Stage Renal Disease: Less than 15 mL/min/1.73 square meters Performed By: #### G FR, TROPHS, CBC, ANEU, LIP, ADIFF, CMP, MDW ####[id number] [place], [place] [address] GFR Non- 59 ml/min/1.73sqm Normal [facility] ([place] Comment on above: Result Comment: GFR Population mean for , Non- Americans Ages 20-29 = 116 mL/min/1.73 sq.m. Ages 30-39 = 107 mL/min/1.73 sq.m. Ages 40-49 = 99 mL/min/1.73 sq.m. Ages 50-59 = 93 mL/min/1.73 sq.m. Ages 60-69 = 85 mL/min/1.73 sq.m. Ages 70+ = 75 mL/min/1.73 sq.m. Chronic Kidney Disease: Less than 60 mL/min/1.73 square meters End Stage Renal Disease: Less than 15 mL/min/1.73 square meters Performed By: #### G FR, TROPHS, CBC, ANEU, LIP, ADIFF, CMP, MDW ####[place] [id number] .MDWon 09-27-2023 Monocyte Distribution Width 15.49 Normal 0.00-20.00 [facility] ([place] Comment on above: Result Comment: For ED adult patients suspected of sepsis, MDW<=20.0 does not rule out sepsis or risk of sepsis Performed By: #### G FR, TROPHS, CBC, ANEU, LIP, ADIFF, CMP, MDW #### [address] [address] .NEUABSon 09-27-2023 Neutrophil, Absolute 7.1 10 3/mcL High 2.9-6.2 [facility] ([place]) Comment on above: Performed By: #### G FR, TROPHS, CBC, ANEU, LIP, ADIFF, CMP, MDW #### [place] [id number] .Urinalysis Microscopic (AO) on 09-27-2023 UA Bacteria Trace Abnormal [facility] ([place]) Comment on above: Performed By: #### U AMICAO, UA #### [address] [place] [address] UA RBC 0-5 Abnormal None Seen [facility] ([place] Comment on above: Performed By: #### U AMICAO, UA #### [address] [place] [address] UA Squam Epithelial 15-25 Abnormal None Seen [facility] ([place] Comment on above: Performed By: #### U AMICAO, UA #### [address] [place] [address] UA WBC 5-10 Abnormal None Seen [facility] ([place] Comment on above: Performed By: #### U AMICAO, UA #### [address] [place] [address] UA Yeast Trace Abnormal [facility] ([place] Comment on above: Performed By: #### U AMICAO, UA #### [place] [address] CBCon 09-27-2023 Erythrocyte distribution width (RBC) [Ratio] 13.6 % Normal 11.5-14.5 [facility] ([place] Comment on above: Performed By: #### G FR, TROPHS, CBC, ANEU, LIP, ADKAROLYN, ROSY, MARCELINA #### [place] [address] Hematocrit (Bld) [Volume fraction] 44.8 % Normal 37.0-47.0 [facility] ([place] Comment on above: Performed By: #### G FR, TROPHS, CBC, ANEU, LIP, ADKAROLYN, ROSY, MARCELINA #### [place] [address] Hgb 15.4 G/dL Normal 12.0-16.0 [facility] ([place] Comment on above: Performed By: #### G FR, TROPHS, CBC, ANEU, LIP, ADKAROLYN, CMP, MDW #### [address] [address] MCH (RBC) [Entitic mass] 32.3 pg High 27.0-31.2 [facility] ([place] Comment on above: Performed By: #### G FR, TROPHS, CBC, ANEU, LIP, ADIFF, CMP, MDW #### [address] [address] MCHC 34.3 G/dL Normal 33.0-37.0 [facility] ([place] Comment on above: Performed By: #### G FR, TROPHS, CBC, ANEU, LIP, ADIFF, CMP, MDW #### [address] [address] MCV (RBC) [Entitic vol] 94.1 fL High 80.0-94.0 [facility] ([place] Comment on above: Performed By: #### G FR, TROPHS, CBC, ANEU, LIP, ADIFF, CMP, MDW #### [address] [address] Platelet 483 10 3/mcL High 130-400 [facility] ([place] Comment on above: Performed By: #### G FR, TROPHS, CBC, ANEU, LIP, ADIFF, CMP, MDW #### [address] [address] Platelet mean volume (Bld) [Entitic vol] 7.1 fL Low 7.4-10.4 [facility] ([place] Comment on above: Performed By: #### G FR, TROPHS, CBC, ANEU, LIP, ADIFF, CMP, MDW #### [address] [address] RBC 4.76 10 6/mcL Normal 4.20-5.40 [facility] ([place] Comment on above: Performed By: #### G FR, TROPHS, CBC, ANEU, LIP, ADIFF, CMP, MDW #### [address] [address] WBC 9.4 10 3/mcL Normal 4.6-10.8 [facility] ([place] Comment on above: Performed By: #### G FR, TROPHS, CBC, ANEU, LIP, ADIFF, CMP, W #### [address] [place], [place] [address] CMPon 09-27-2023 Albumin Level 4.1 G/dL Normal 3.4-4.8 [facility] ([place] Comment on above: Performed By: #### G FR, TROPHS, CBC, ANEU, LIP, ADIFF, CMP, MDW ####[address] [place], [place] [address] Albumin/Globulin [Mass ratio] 1.1 {ratio} Normal 1.1-2.5 [facility] ([place] Comment on above: Performed By: #### G FR, TROPHS, CBC, ANEU, LIP, ADIFF, CMP, W ####[address] [place], [place] [address] ALP [Catalytic activity/Vol] 124 U/L Normal 40-135 [facility] ([place] Comment on above: Performed By: #### G FR, TROPHS, CBC, ANEU, LIP, ADIFF, CMP, MARCELINA ####[address] [place], [place] [address] ALT [Catalytic activity/Vol] 42 U/L Normal 14-59 [facility] ([place] Comment on above: Performed By: #### Karlos FR, TROPHS, CBC, ANEU, LIP, ADIFF, CMP, MARCELINA ####[address] [place], [place] [address] AST [Catalytic activity/Vol] 19 U/L Normal 10-40 [facility] ([place] Comment on above: Performed By: #### Karlos FR, TROPHS, CBC, ANEU, LIP, ADIFF, CMP, MARCELINA ####[address] [place], [place] [address] Bili Total 0.4 mg/dL Normal 0.2-1.0 [facility] ([place] Comment on above: Result Comment: Use of this assay is not recommended for patients undergoing treatment with eltrombopag due to the potential for falsely elevated results. Performed By: #### G FR, TROPHS, CBC, ANEU, LIP, ADIFF, CMP, W ####[address] [place], [place] [address] BUN/Creatinine Ratio 13 ratio Normal 7-27 [facility] ([place] Comment on above: Performed By: #### G FR, TROPHS, CBC, ANEU, LIP, ADIFF, CMP, MDW ####[address] [place], [place] [address] Calcium [Mass/Vol] 9.5 mg/dL Normal 8.4-10.2 [facility] ([place]) Comment on above: Performed By: #### G FR, TROPHS, CBC, ANEU, LIP, ADIFF, CMP, W ####[address] [place], [place] [address] Chloride [Moles/Vol] 99 mmol/L Normal 98-107 [facility] ([place] Comment on above: Performed By: #### G FR, TROPHS, CBC, ANEU, LIP, ADIFF, CMP, W ####[address] [place], [place] [address] CO2 [Moles/Vol] 29 mmol/L Normal 23-31 [facility] ([place] Comment on above: Performed By: #### G FR, TROPHS, CBC, ANEU, LIP, ADIFF, CMP, W ####[address] [place], [place] [address] Creatinine [Mass/Vol] 0.92 mg/dL Normal 0.55-1.02 [facility] ([place]) Comment on above: Performed By: #### G FR, TROPHS, CBC, ANEU, LIP, ADIFF, CMP, W ####[address] [place], [place] [address] Electrolyte Balance 12.0 mEq/L Normal 4.0-15.0 [facility] ([place]) Comment on above: Performed By: #### G FR, TROPHS, CBC, ANEU, LIP, ADIFF, CMP, W ####[address] [place], [place] [address] Globulin 3.6 G/dL Normal [facility] ([place] Comment on above: Performed By: #### G FR, TROPHS, CBC, ANEU, LIP, ADIFF, ROSY, MARCELINA ####[address] [place], [place] [address] Glucose [Mass/Vol] 128 mg/dL High 83-110 [facility] ([place]) Comment on above: Performed By: #### G FR, TROPHS, CBC, ANEU, LIP, ADIFF, CMP, W ####[address] [place], [place] [address] Potassium [Moles/Vol] 3.4 mmol/L Low 3.5-5.1 [facility] ([place]) Comment on above: Performed By: #### G FR, TROPHS, CBC, ANEU, LIP, ADIFF, CMP, MARCELINA ####[address] [place], [place] [address] Sodium [Moles/Vol] 140 mmol/L Normal 136-145 [facility] ([place] Comment on above: Performed By: #### Karlos FR, TROPHS, CBC, ANEU, LIP, ADIFF, ROSY, MARCELINA ####[address] [place], [place] [address] Total Protein 7.7 G/dL Normal 6.4-8.2 [facility] ([place] Comment on above: Performed By: #### Karlos FR, TROPHS, CBC, ANEU, LIP, ADIFF, ROSY, MARCELINA ####[address] [place], [place] [address] Urea nitrogen [Mass/Vol] 12 mg/dL Normal 7-18 [facility] ([place] Comment on above: Performed By: #### G FR, TROPHS, CBC, ANEU, LIP, ADIFF, CMP, MARCELINA ####[address] [place], [place] [address] CT HEAD OR BRAIN W/O CONTRAS Ton 09-27-2023 CT HEAD OR BRAIN W/O CONTRAST ORIGINAL HISTORY: Unsteady gait, confusion COMPARISON: 09 January 2022 TECHNIQUE: Routine non-contrast head CT with sagittal and coronal reconstructions This exam was performed according to our departmental dose optimization program, and includes the following measures where applicable: automated exposure control, adjustment of the mAs and/or kVp according to patient size and/or exam, and an iterative reconstruction algorithm. FINDINGS: The ventricles and sulci are mildly enlarged. There are no abnormal intra or extra-axial fluid collections. There is mild irregular decreased attenuation in the cerebral white matter; bedolla-white matter differentiation is maintained. The calvaria and the bones of the base of the skull are intact. IMPRESSION: Mild volume loss and small vessel ischemic disease. No significant interval change. Interpreted by: Moses Huerta MD Preliminary Report By: Moses Huerta MD Electronically signed By Moses Huerta MD Dictated Date: 09/27/2023 9:16:15 AM Prelim Date: 09/27/2023 9:19:50 AM Sign Date: 09/27/2023 9:19:50 AM Ordering Provider: LANDEN PANIAGUA [facility] ([place]) LABORATORYOrdered By: Caitie Mejía on 09-27-2023 Appearance (U) Clear (09/27/23 10:14 AM) Invalid Interpretation Code Clear AO Auto Urine SS Bacteria LM.HPF (Urine sed) [#/Area] Trace /HPF Invalid Interpretation Code AO Auto Urine SS Bilirubin Ql (U) Negative (09/27/23 10:14 AM) Invalid Interpretation Code Negative AO Auto Urine SS Color (U) Yellow (09/27/23 10:14 AM) Invalid Interpretation Code AO Auto Urine SS Glucose Test strip (U) [Mass/Vol] Negative Invalid Interpretation Code Negative AO Auto Urine SS Hemoglobin Auto test strip (U) [Mass/Vol] Small *ABN* (09/27/23 10:14 AM) Invalid Interpretation Code Negative AO Auto Urine SS Ketones Ql (U) 15 mg/dL Invalid Interpretation Code Negative AO Auto Urine SS UA Leuk Est Trace *ABN* (09/27/23 10:14 AM) Invalid Interpretation Code Negative AO Auto Urine SS UA Nitrite Negative (09/27/23 10:14 AM) Invalid Interpretation Code Negative AO Auto Urine SS UA pH 5.5 (09/27/23 10:14 AM) Invalid Interpretation Code 5.0 - 8.0 AO Auto Urine SS UA Protein Negative Invalid Interpretation Code Negative AO Auto Urine SS UA RBC 0-5 /HPF Invalid Interpretation Code None Seen AO Auto Urine SS UA Spec Grav 1.025 (09/27/23 10:14 AM) Invalid Interpretation Code 1.015-1.025 AO Auto Urine SS UA Specimen Type Clean Catch (09/27/23 10:14 AM) Invalid Interpretation Code AO Auto Urine SS UA Squam Epithelial 15-25 /HPF Invalid Interpretation Code None Seen AO Auto Urine SS UA Urobilinogen 0.2 E.U./dL Invalid Interpretation Code 0.2-1.0 AO Auto Urine SS WBC LM.HPF (Urine sed) [#/Area] 5-10 /HPF Invalid Interpretation Code None Seen AO Auto Urine SS Yeast LM.HPF (Urine sed) [#/Area] Trace /HPF Invalid Interpretation Code AO Auto Urine SS LABORATORYOrdered By: SYSTEM SYSTEM on 09-27-2023 Albumin BCP dye [Mass/Vol] 4.1 G/dL Invalid Interpretation Code 3.4 - 4.8 G/dL AO ADM SS Albumin/Globulin [Mass ratio] 1.1 {ratio} Invalid Interpretation Code 1.1 - 2.5 ratio AO ADM SS ALP [Catalytic activity/Vol] 124 U/L Invalid Interpretation Code 40 - 135 U/L AO ADM SS ALT With P-5'-P [Catalytic activity/Vol] 42 U/L Invalid Interpretation Code 14 - 59 U/L AO ADM SS AST With P-5'-P [Catalytic activity/Vol] 19 U/L Invalid Interpretation Code 10 - 40 U/L AO ADM SS Basophil, Absolute 0.1 103/mcL Invalid Interpretation Code 0.0 - 0.2 10^3/mcL AO Workflow SS Basophils/100 WBC (Bld) 0.8 % Invalid Interpretation Code 0.0 - 2.5 % AO Workflow SS Bilirubin [Mass/Vol] 0.4 mg/dL Invalid Interpretation Code 0.2 - 1.0 mg/dL AO ADM SS Comment on above: Interpretive Data: U se of this assay is not recommended for patients undergoing treatment with eltrombopag due to the potential for falsely elevated results. Calcium [Mass/Vol] 9.5 mg/dL Invalid Interpretation Code 8.4 - 10.2 mg/dL AO ADM SS Chloride [Moles/Vol] 99 mmol/L Invalid Interpretation Code 98 - 107 mmol/L AO ADM SS CO2 [Moles/Vol] 29 mmol/L Invalid Interpretation Code 23 - 31 mmol/L AO ADM SS Creatinine [Mass/Vol] 0.92 mg/dL Invalid Interpretation Code 0.55 - 1.02 mg/dL AO ADM SS Electrolyte Balance 12.0 mEq/L Invalid Interpretation Code 4.0 - 15.0 mEq/L AO ADM SS Eosinophil, Absolute 0.1 103/mcL Invalid Interpretation Code 0.0 - 0.4 10^3/mcL AO Workflow SS Eosinophils/100 WBC (Bld) 0.8 % Invalid Interpretation Code 0.0 - 7.0 % AO Workflow SS Erythrocyte distribution width (RBC) [Ratio] 13.6 % Invalid Interpretation Code 11.5 - 14.5 % AO Workflow SS GFR/1.73 sq M.predicted among blacks MDRD (S/P/Bld) [Vol rate/Area] 72 ml/min/1.73sqm Invalid Interpretation Code AO Chemistry S Comment on above: Interpretive Data: GFR Population mean for , Non- Americans Ages 20-29 = 116 mL/min/1.73 sq.m. Ages 30-39 = 107 mL/min/1.73 sq.m. Ages 40-49 = 99 mL/min/1.73 sq.m. Ages 50-59 = 93 mL/min/1.73 sq.m. Ages 60-69 = 85 mL/min/1.73 sq.m. Ages 70+ = 75 mL/min/1.73 sq.m. Chronic Kidney Disease: Less than 60 mL/min/1.73 square meters End Stage Renal Disease: Less than 15 mL/min/1.73 square meters GFR/1.73 sq M.predicted among non-blacks MDRD (S/P/Bld) [Vol rate/Area] 59 ml/min/1.73sqm Invalid Interpretation Code AO Chemistry S Comment on above: Interpretive Data: GFR Population mean for , Non- Americans Ages 20-29 = 116 mL/min/1.73 sq.m. Ages 30-39 = 107 mL/min/1.73 sq.m. Ages 40-49 = 99 mL/min/1.73 sq.m. Ages 50-59 = 93 mL/min/1.73 sq.m. Ages 60-69 = 85 mL/min/1.73 sq.m. Ages 70+ = 75 mL/min/1.73 sq.m. Chronic Kidney Disease: Less than 60 mL/min/1.73 square meters End Stage Renal Disease: Less than 15 mL/min/1.73 square meters Globulin 3.6 G/dL Invalid Interpretation Code AO ADM SS Glucose [Mass/Vol] 128 mg/dL Invalid Interpretation Code 83 - 110 mg/dL AO ADM SS Hematocrit (Bld) [Volume fraction] 44.8 % Invalid Interpretation Code 37.0 - 47.0 % AO Workflow SS Hemoglobin (Bld) [Mass/Vol] 15.4 G/dL Invalid Interpretation Code 12.0 - 16.0 G/dL AO Workflow SS Lipase [Catalytic activity/Vol] 50 U/L Invalid Interpretation Code 16 - 77 U/L AO ADM SS Lymphocyte, Absolute 1.4 103/mcL Invalid Interpretation Code 0.8 - 3.9 10^3/mcL AO Workflow SS Lymphocytes/100 WBC (Bld) 15.2 % Invalid Interpretation Code 10.0 - 50.0 % AO Workflow SS MCH (RBC) [Entitic mass] 32.3 pg Invalid Interpretation Code 27.0 - 31.2 pg AO Workflow SS MCHC 34.3 G/dL Invalid Interpretation Code 33.0 - 37.0 G/dL AO Workflow SS MCV (RBC) [Entitic vol] 94.1 fL Invalid Interpretation Code 80.0 - 94.0 fL AO Workflow SS Monocyte distribution width Auto (Bld) [Entitic vol] 15.49 1 Invalid Interpretation Code 0.00 - 20.00 AO Workflow SS Comment on above: Result Comment: For ED adult patients suspected of sepsis, MDW<=20.0 does not rule out sepsis or risk of sepsis Monocyte, Absolute 0.8 103/mcL Invalid Interpretation Code 0.2 - 1.0 10^3/mcL AO Workflow SS Monocytes/100 WBC (Bld) 8.3 % Invalid Interpretation Code 1.7 - 13.0 % AO Workflow SS Neutrophil, Absolute 7.1 103/mcL Invalid Interpretation Code 2.9 - 6.2 10^3/mcL AO Workflow SS Neutrophils/100 WBC (Bld) 74.9 % Invalid Interpretation Code 37.0 - 80.0 % AO Workflow SS Platelet mean volume (Bld) [Entitic vol] 7.1 fL Invalid Interpretation Code 7.4 - 10.4 fL AO Workflow SS Platelets (Bld) [#/Vol] 483 103/mcL Invalid Interpretation Code 130 - 400 10^3/mcL AO Workflow SS Potassium [Moles/Vol] 3.4 mmol/L Invalid Interpretation Code 3.5 - 5.1 mmol/L AO ADM SS Protein [Mass/Vol] 7.7 G/dL Invalid Interpretation Code 6.4 - 8.2 G/dL AO ADM SS RBC (Bld) [#/Vol] 4.76 106/mcL Invalid Interpretation Code 4.20 - 5.40 10^6/mcL AO Workflow SS Sodium [Moles/Vol] 140 mmol/L Invalid Interpretation Code 136 - 145 mmol/L AO ADM SS Troponin I.cardiac DL <= 0.01 ng/mL [Mass/Vol] 13.2 ng/L Invalid Interpretation Code 0.0 - 51.4 ng/L AO ADM SS Urea nitrogen [Mass/Vol] 12 mg/dL Invalid Interpretation Code 7 - 18 mg/dL AO ADM SS Urea nitrogen/Creatinine [Mass ratio] 13 ratio Invalid Interpretation Code 7 - 27 ratio AO ADM SS WBC (Bld) [#/Vol] 9.4 103/mcL Invalid Interpretation Code 4.6 - 10.8 10^3/mcL AO Workflow SS LIPon 09-27-2023 Lipase Level 50 U/L Normal 16-77 [facility] ([place]) Comment on above: Performed By: #### Karlos FR, TROPHS, CBC, ANEU, LIP, ADKAROLYN, ROSY, MARCELINA ####[address] [place], [place] [address] TROPHSon 09-27-2023 Troponin I High Sensitivity 13.2 ng/L Normal 0.0-51.4 [facility] ([place]) Comment on above: Performed By: #### G FR, TROPHS, CBC, ANEU, LIP, ADKAROLYN, ROSY, W ####[address] [place], [place] [address] UAon 09-27-2023 Color (U) Yellow Normal [facility] ([place]) Comment on above: Performed By: #### U DEXTER RAMIREZ #### [address] [place], [place] [address] Glucose (U) [Mass/Vol] Negative Normal Negative [facility] ([place]) Comment on above: Performed By: #### U DEXTER RAMIREZ #### [address]ly [address] [address] Ketones Ql (U) 15 mg/dL Abnormal Negative [facility] ([place] Comment on above: Performed By: #### U AMICAO, UA #### [address] [address] UA Appear Clear Normal Clear [facility] ([place]) Comment on above: Performed By: #### U AMICAO, UA #### [address] [address] UA Blood Small Abnormal Negative [facility] ([place] Comment on above: Performed By: #### U AMICAO, UA #### [address] [place] [address] UA Leuk Est Trace Abnormal Negative [facility] ([place]) Comment on above: Performed By: #### U AMICAO, UA #### [address] [place] [address] UA Nitrite Negative Normal Negative [facility] ([place] Comment on above: Performed By: #### U AMICAO, UA #### [address] [address] UA pH 5.5 Normal 5.0 - 8.0 [facility] ([place]) Comment on above: Performed By: #### U AMICAO, UA #### [address] [address] UA Protein Negative Normal Negative [facility] ([place]) Comment on above: Performed By: #### U AMICAO, UA #### [address] [address] UA Spec Grav 1.025 Normal 1.015-1.025 [facility] ([place]) Comment on above: Performed By: #### U AMICAO, UA #### [address] [address] UA Specimen Type Clean Catch Normal [facility] ([place]) Comment on above: Performed By: #### U AMICAO, UA #### [address] [place] [address] UA Urobilinogen 0.2 E.U./dL Normal 0.2-1.0 [facility] ([place]) Comment on above: Performed By: #### U DEXTER RAMIREZ #### [address] [place], [place] [address] Urobilinogen (U) [Mass/Vol] Negative Normal Negative [facility] ([place]) Comment on above: Performed By: #### U DEXTER RAMIREZ #### [address] [place], [place] [address] XR CHEST 1 VIEWon 09-27-2023 XR CHEST 1 VIEW ORIGINAL EXAMINATION: ONE XRAY VIEW OF THE CHEST09/27/2023 8:50 am COMPARISON: July 04, 2021 HISTORY: ORDERING SYSTEM PROVIDED HISTORY: Reason for Exam: fever FINDINGS: Cardiac silhouette is stable. There is aortic atherosclerosis. No pneumothorax, overt pulmonary edema, or focal consolidation. No large pleural effusion. No acute osseous abnormality. IMPRESSION: No acute radiographic findings. Interpreted by: Chele Carson DO Preliminary Report By: Chele Carson DO Electronically signed By Chele Carson DO Dictated Date: 09/27/2023 8:55:46 AM Prelim Date: 09/27/2023 8:56:52 AM Sign Date: 09/27/2023 8:56:52 AM Ordering Provider: LANDEN Loyola [facility] ([place]) TEAOVmilad 04-11-2023 CNOV Office Visit ([place]LEY ) DION MACE ([id number]) 1945 F Date Time Provider Department 04/11/23 9:00 AM CARLOS REEVES During your visit today, we recorded the following information about you: Carlos Reeves MD 05/09/2023 7:49 AM Signed Carlos Reeves MD Department of Orthopaedics Orthopaedics [address] [facility] [address] Dept: [phone] Dept April 11, 2023 CHIEF COMPLAINT: Follow Up and Pain of the Right Shoulder and 4 weeks post visit right shoulder with injection given HPI Patient here for follow up right shoulder pain. Patient states injection did not help. Her pain is deep into her shoulder pain. Patient states when her pain is sharp her shoulder will crack and helps ease the pain. Taking codeine for prevention of migraines does not help her shoulder pain. Patient states when she sleeps on her right side her arm has to be completely straight. Patient states she still have a few shingles on her buttock. ASSESSMENT: M25.511, G89.29 Chronic right shoulder pain (primary encounter diagnosis) M25.819 Shoulder impingement PLAN: Prednisone and anti-inflammatory. Ms. Dion Mace was advised as to contrast therapies and/or to take analgesics/anti-inflam matories as needed and all contraindications were reviewed. OBJECTIVE: Ms. Dion Mace is a pleasant 77 year old in no apparent distress. Gen:There were no vitals taken for this visit. nl development, non obese, no deformities ENT: Normocephalic, normal hearing, moist mucosa CV: Pulses:Radial= 2+ and symmetric, capillary refill < 2 secs, no peripheral edema/varicosities Skin: no rash, bruising or lesions. Good turgor. Psych: cooperative and appropriate, alert and oriented x 3, good mood and affect. Musculoskeletal: Stable exam from prior visit. Imaging: IMPRESSION: No acute osseous abnormality Debeader: DRE Transcribe Date/Time: Apr 11 2023 1:20P Dictated by : JERMAINE YAN MD This examination was interpreted and the report reviewed and electronically signed by: JERMAINE YAN MD on Apr 11 2023 1:21PM EST Results-Findings * * *Final Report* * * DATE OF EXAM: Apr 11 2023 9:46AM [id number] - XR SHLDR >/=3V AP/CARIN AP/OTHR RT / PROCEDURE REASON: multiple diagnoses * * * * Physician Interpretation * * * * EXAMINATION: XR SHLDR >/=3V AP/CARIN AP/OTHR RT CLINICAL HISTORY: Right shoulder pain Technique: XR SHLDR >/=3V AP/CARIN AP/OTHR RT -- RIGHT with 3 views on 3 images Comparison: X-ray right shoulder 07/03/2018 RESULT: No acute fracture. Joint spaces are maintained. Supporting Subjective Information Below: Past Surgical History: PAST SURGICAL HISTORY Procedure Laterality Date ADENOIDECTOMY PRIMARY AGE 13/> APPENDECTOMY BREAST BX NEEDLE CORE LEFT COLONOSCOPY EGD HEART CATHETERIZATION 2011 [facility] HIATAL HERNIA REPAIR HX MRI SHOULDER WO right shoulder REIMPLANTATION OF KIDNEY right SALPINGO-OOPHORECTOMY COMPL/PRTL UNI/BI SPX TONSILLECTOMY PRIMARY/SECONDARY Tonsillectomy TOTAL ABDOMINAL HYSTERECT W/WO RMVL TUBE OVARY 1969 Medications: Current Outpatient Medications Medication Sig [id number]-mkem -lut-adama (OCUVITE ADULT 50 PLUS) 250 mg (90 mg-160 mg) cap Take by mouth once daily. ascorbic acid, vitamin C, (VITAMIN C) 250 mg tablet Take 250 mg by mouth. budesonide-formoterol (SYMBICORT) 160-4.5 mcg/actuation inhaler Symbicort 160 mcg-4.5 mcg/actuation HFA aerosol inhaler INHALE 2 PUFFS BY MOUTH TWICE A DAY famotidine (PEPCID) 20 mg tablet tiotropium (SPIRIVA) 18 mcg inhalation capsule Spiriva with HandiHaler 18 mcg and inhalation capsules INHALE 1 CAPSULE INSTRUCTED ONCE DAILY. zolpidem (AMBIEN) 5 mg tablet zolpidem 5 mg tablet TAKE 1 TABLET BY MOUTH AT BEDTIME NEEDED FOR INSOMNIA codeine/butalbital/ASA /caffein (FIORINAL-CODEINE #3 ORAL) Take by mouth. TRELEGY ELLIPTA 100-62.5-25 mcg inhalation powder INHALE 1 PUFF INSTRUCTED ONCE DAILY. hydroCHLOROthiazide (HYDRODIURIL, ESIDRIX) 12.5 mg tablet Take 1 tablet by mouth once daily folic acid 1 mg tablet Take 1 tablet by mouth once daily. cholecalciferol, Vitamin D3, (VITAMIN D3) 1,250 mcg (50,000 unit) cap capsule Take 50,000 Units by mouth one time a week. levothyroxine (SYNTHROID) 150 mcg tablet Take 175 mcg by mouth once daily. calcium citrate/vitamin D3 (CALCIUM CITRATE + D ORAL) Take 1 tablet by mouth once daily. MAGNESIUM ORAL Take 1 tablet by mouth once daily. Ferrous Sulfate 27 mg iron tab Take 27 mg by mouth three times daily. (Patient taking differently: Take 27 mg by mouth once daily.) ipratropium-albuterol (DUONEB) 0.5 mg-3 mg(2.5 mg base)/3 mL nebu Inhale 3 mL as instructed every 6 hours as needed (wheezing/shortness of breath). Melatonin 5 mg cap Take 1 capsule by mouth daily at bedtime. albuterol (PROVENTIL) 2 (more content not included)... Normal [facility] No Panel Informationon 04-11 [facility] XR SHLDR >/=3V AP/CARIN AP/OTH R RTon 04-11-2023 XR SHLDR >/=3V AP/CARIN AP/OTHR RT * * *Final Report* * * DATE OF EXAM: Apr 11 2023 9:46AM [id number] - XR SHLDR >/=3V AP/CARIN AP/OTHR RT / PROCEDURE REASON: multiple diagnoses * * * * Physician Interpretation * * * * EXAMINATION: XR SHLDR >/=3V AP/CARIN AP/OTHR RT CLINICAL HISTORY: Right shoulder pain Technique: XR SHLDR >/=3V AP/CARIN AP/OTHR RT -- RIGHT with 3 views on 3 images Comparison: X-ray right shoulder 07/03/2018 RESULT: No acute fracture. Joint spaces are maintained. IMPRESSION: No acute osseous abnormality Debeader: PSCB Transcribe Date/Time: Apr 11 2023 1:20P Dictated by : JERMAINE YAN MD This examination was interpreted and the report reviewed and electronically signed by: JERMAINE YAN MD on Apr 11 2023 1:21PM EST [id number] Normal [facility] Shandra 03-30-2023 LEESA Telephone (Zinkia) KETLER,DION L ([id number]) 1945 F Date Time Provider Department 03/30/23 CARLOS REEVES During your visit today, we recorded the following information about you: Fay Espinoza LPN 03/30/2023 8:14 AM Signed Pedro from appointment center called. Patient trying to schedule appointment for right should pain. Scheduled appointment for April 11, 2023. Was last seen 03/07/2023 and received injection. Patient states she needs X-ray for next visit but no order. Please review and advise. Fay Andre Ma 03/30/2023 2:50 PM Signed X-ray order will be placed, if needed, when charts are prepared for that visit date. Allergies As of Date: 03/30/2023 Noted Allergy Reaction PENICILLINS 06/12/2014 7 - Swelling 10 - Anaphylaxis PYRIDIUM (PHENAZOPYRIDINE HCL) 06/12/2014 8 - GI Upset 11 - Vomiting SULFA (SULFONAMIDE ANTIBIOTICS) 06/12/2014 7 - Swelling 10 - Anaphylaxis ZOLOFT (SERTRALINE) 07/29/2021 14 - Other: See Comments Comments: Depression ZONISAMIDE 05/19/2016 2 - Rash Date Reviewed: 03/26/2023 Reviewed by: Ansley Kaba APRN.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 - Fully Assessed Reason for Visit: Mri Technician - Other [2101] Prescriptions as of 03/30/2023 - ascorbic acid, vitamin C, (VITAMIN C) 250 mg tablet Take 250 mg by mouth. - budesonide-formoterol (SYMBICORT) 160-4.5 mcg/actuation inhaler Symbicort 160 mcg-4.5 mcg/actuation HFA aerosol inhaler INHALE 2 PUFFS BY MOUTH TWICE A DAY - famotidine (PEPCID) 20 mg tablet - lisinopril (ZESTRIL) 10 mg tablet Take 10 mg by mouth. - tiotropium (SPIRIVA) 18 mcg inhalation capsule Spiriva with HandiHaler 18 mcg and inhalation capsules INHALE 1 CAPSULE INSTRUCTED ONCE DAILY. - zolpidem (AMBIEN) 5 mg tablet zolpidem 5 mg tablet TAKE 1 TABLET BY MOUTH AT BEDTIME NEEDED FOR INSOMNIA - tobramycin (TOBREX) 0.3 % ophthalmic solution Use 1-2 Drops in both eyes every 4 hours for 10 days. - codeine/butalbital/ASA /caffein (FIORINAL-CODEINE #3 ORAL) Take by mouth. - TRELEGY ELLIPTA 100-62.5-25 mcg inhalation powder INHALE 1 PUFF INSTRUCTED ONCE DAILY. - hydroCHLOROthiazide (HYDRODIURIL, ESIDRIX) 12.5 mg tablet Take 1 tablet by mouth once daily - folic acid 1 mg tablet Take 1 tablet by mouth once daily. - cholecalciferol, Vitamin D3, (VITAMIN D3) 1,250 mcg (50,000 unit) cap capsule Take 50,000 Units by mouth one time a week. - levothyroxine (SYNTHROID) 150 mcg tablet Take 175 mcg by mouth once daily. - calcium citrate/vitamin D3 (CALCIUM CITRATE + D ORAL) Take 1 tablet by mouth once daily. - MAGNESIUM ORAL Take 1 tablet by mouth once daily. - Ferrous Sulfate 27 mg iron tab Take 27 mg by mouth three times daily. - ipratropium-albuterol (DUONEB) 0.5 mg-3 mg(2.5 mg base)/3 mL nebu Inhale 3 mL as instructed every 6 hours as needed (wheezing/shortness of breath). - Melatonin 5 mg cap Take 1 capsule by mouth daily at bedtime. - albuterol (PROVENTIL) 2.5 mg /3 mL (0.083 %) nebulizer solution INHALE CONTENTS OF 1 VIAL NEBULIZED EVERY 8 HOURS - esomeprazole (NEXIUM) 40 mg capsule Take 40 mg by mouth DAILY (6 AM). - citalopram (CELEXA) 40 mg tablet Take 1 tablet by mouth once daily. - cyclobenzaprine (FLEXERIL) 10 mg tablet Take 1 tablet by mouth twice daily as needed. Meds Comments as of 05/15/2015: Patient discontinued the lotrisone lotion. Patient states that PCP discontinued the dicyclomine. Problem List As Of Date 03/30/2023 Noted Resolved Migraine [G43.909] 06/12/2014 Herpes simplex [B00.9] 06/12/2014 Osteoporosis [M81.0] 06/12/2014 Hypothyroidism [E03.9] 06/12/2014 COPD (chronic obstructive pulmonary disease) (H*06/12/2014 Anemia [D64.9] 06/12/2014 Thrombocytosis (HCC) [D75.839] 09/02/2014 IBS (irritable bowel syndrome) [K58.9] 09/12/2014 Shoulder capsulitis [M77.8] 12/24/2014 Lyme disease [A69.20] Insomnia [G47.00] 02/11/2015 Intractable migraine with aura without status m*04/27/2016 01/10/2023 Hyperlipidemia, mixed [E78.2] 04/02/2020 Breast lump [N63.0] Diverticulitis [K57.92] H1N1 influenza [J10.1] 2011 Heart murmur [R01.1] Hiatal hernia [K44.9] History of cardiac cath [Z98.890] 09/21/2012 History of echocardiogram [Z92.89] 08/07/2012 History of stress test [Z92.89] 03/13/2009 Benign hypertension [I10] Rheumatic fever [I00] Serum iron raised [R79.0] TMJ (dislocation of temporomandibular joint) [S* History of tobacco abuse [Z87.891] CAD (coronary artery disease) [I25.10] RBBB [I45.10] Chronic fatigue [R53.82] 10/02/2020 Folic acid deficiency [E53.8] 07/30/2021 Aortic valve insufficiency [I35.1] 01/10/2023 Depression [F32.A] 01/10/2023 Encounter Status:Closed by YESY ANDRE MA on 03/30/23 [facility] CNOVmilad 03-07-2023 CNOV Office Visit (ANSLEY ) DION MACE ([id number]) 1945 F Date Time Provider Department 03/07/23 9:00 AM CARLOS REEVES During your visit today, we recorded the following information about you: Carlos Reeves MD 03/27/2023 10:16 AM Signed Carlos Reeves MD Department of Orthopaedics Orthopaed[facility] [address] [facility] [address] Dept: [phone] Dept March 07, 2023 CHIEF COMPLAINT: Post Op of the Left Wrist, Post Op of the Right Wrist, and 5 weeks 5 days post op Bilateral CTR (and 1st dorsal compartment release). HPI Patient denies any pain today. States she is currently being treated for shingles. ASSESSMENT: M25.819 Shoulder impingement (primary encounter diagnosis) M25.511, G89.29 Chronic right shoulder pain G56.03 Bilateral carpal tunnel syndrome SUMMARY/PLAN: Doing great after surgery. She is describing classic impingment symptoms of the right shoulder bothering her more than her surgical hand(s). Ill give her a cortisone injection today. Exam: Healed incisions. Positive neer and hopkins strength intact. Large Joint Arthro/Inj: R subacromial bursa Informed Consent Consent Obtained: Verbal [place] Protocol A moment to CARE was completed. SIGN IN Sign in communication not applicable due to emergent procedure. Personnel directly involved with the procedure wore the appropriate PPE. Special Equipment: N/A Patient/Surrogate Stated/Verified: Patient name, Date of , Relevant allergies and Intended procedure TIME OUT Intended patient and procedure match the source document(s). Consent documented and matches the intended procedure. Relevant labs, photos, and/or imaging studies have been reviewed. Correct side/site marked and visible. Medications required for procedure verified. No fire risk assessment and interventions applicable. No implant(s) inserted. 03/07/2023 9:37 AM The procedure site was prepped in the usual sterile fashion. Site: R subacromial bursa Medications: 6 mg betamethasone acetate-betamethasone sodium phosphate 6 mg/mL Anesthetics: 4 mL lidocaine (PF) 10 mg/mL (1 %) Outcome: Tolerated well, no immediate complications Post-injection instructions were reviewed with the patient and the patient voiced understanding of these instructions. SIGN OUT All instruments, equipment, possible retained foreign bodies accounted for. Supporting Information Below: Medications: Current Outpatient Medications Medication Sig acyclovir (ZOVIRAX) 800 mg tablet TAKE 1 TABLET BY MOUTH FIVE TIMES DAILY FOR 7 DAYS codeine/butalbital/ASA /caffein (FIORINAL-CODEINE #3 ORAL) Take by mouth. TRELEGY ELLIPTA 100-62.5-25 mcg inhalation powder INHALE 1 PUFF INSTRUCTED ONCE DAILY. hydroCHLOROthiazide (HYDRODIURIL, ESIDRIX) 12.5 mg tablet Take 1 tablet by mouth once daily folic acid 1 mg tablet Take 1 tablet by mouth once daily. cholecalciferol, Vitamin D3, (VITAMIN D3) 1,250 mcg (50,000 unit) cap capsule Take 50,000 Units by mouth one time a week. levothyroxine (SYNTHROID) 150 mcg tablet Take 175 mcg by mouth once daily. calcium citrate/vitamin D3 (CALCIUM CITRATE + D ORAL) Take 1 tablet by mouth once daily. MAGNESIUM ORAL Take 1 tablet by mouth once daily. Ferrous Sulfate 27 mg iron tab Take 27 mg by mouth three times daily. ipratropium-albuterol (DUONEB) 0.5 mg-3 mg(2.5 mg base)/3 mL nebu Inhale 3 mL as instructed every 6 hours as needed (wheezing/shortness of breath). Melatonin 5 mg cap Take 1 capsule by mouth daily at bedtime. albuterol (PROVENTIL) 2.5 mg /3 mL (0.083 %) nebulizer solution INHALE CONTENTS OF 1 VIAL NEBULIZED EVERY 8 HOURS esomeprazole (NEXIUM) 40 mg capsule Take 40 mg by mouth DAILY (6 AM). Nebulizers 1 Each as needed. citalopram (CELEXA) 40 mg tablet Take 1 tablet by mouth once daily. albuterol HFA (PROAIR HFA) 90 mcg/actuation inhaler Inhale 2 Puffs as instructed twice daily as needed. cyclobenzaprine (FLEXERIL) 10 mg tablet Take 1 tablet by mouth twice daily as needed. Cholecalciferol, Vitamin D3, 5,000 unit tab Take 5,000 Units by mouth once daily. No current facility-administered medications for this visit. Allergies: Penicillins, Pyridium [Phenazopyridine Hcl], Sulfa (Sulfonamide Antibiotics), Zoloft [Sertraline], and Zonisamide Carlos Reeves MD Allergies As of Date: 03/07/2023 Noted Allergy Reaction PENICILLINS 06/12/2014 7 - Swelling 10 - Anaphylaxis PYRIDIUM (PHENAZOPYRIDINE HCL) 06/12/2014 8 - GI Upset 11 - Vomiting SULFA (SULFONAMIDE ANTIBIOTICS) 06/12/2014 7 - Swelling 10 - Anaphylaxis ZOLOFT (SERTRALINE) 07/29/2021 14 - Other: See Comments Comments: Depression ZONISAMIDE 05/19/2016 2 - Rash Date Reviewed: 03/07/2023 Reviewed by: Carlos Reeves MD - Fully Assessed Reason for Visit: Post Op [174] Post Op [174] 5 weeks 5 days post op Bilateral CTR [Other] Cmt: (more content not included)... Normal [facility] CNOVon 02-07-2023 CNOV Office Visit (ORTHWS ) DION MACE ([id number]) 1945 F Date Time Provider Department 02/07/23 3:00 PM GEORGIA BUSH During your visit today, we recorded the following information about you: Blood pressure 140/57 Génesis Paz LPN 02/07/2023 3:45 PM Signed AMB ROOMING INTAKE FLOWSHEET DATA Pain Pain Level: 3 Pain Location: Wrist-Left Description: Aching Duration Amount of Time: 12 Duration Units: Days Frequency: Intermittent Intervention/Comfort measure: Reposition, Relaxation Patient presents with: Left Wrist - Established Patient, Post Op, Pain Right Wrist - Established Patient, Post Op, Pain Patient present to office 1 week 5 days post op Bilateral CTR and 1st dorsal compartments release and injection in wrist. DERIK Rayo PA-C 02/07/2023 3:45 PM Signed Georgia Bush PA-C Department of Orthopaedics Orthopaedics [address] [facility] [address] Dept: [phone] Dept February 07, 2023 CHIEF COMPLAINT: Established Patient, Post Op, and Pain of the Left Wrist and Established Patient, Post Op, and Pain of the Right Wrist. ASSESSMENT: G56.03 Bilateral carpal tunnel syndrome (primary encounter diagnosis) M65.4 De Quervain's tenosynovitis SUMMARY/PLAN: Patient presents 1 week and 5 days status post bilateral carpal tunnel release and left wrist first dorsal compartment release. She is doing well, having some 3 out of 10 aching especially in the left wrist. We discussed proper hand washing, no soaking of the operative hand. No heavy lifting, pushing or pulling with the operative hand, encourage gentle motion. We discussed scar massage. Follow up as planned. Exam: Incision sites are well approximated without erythema or drainage, there is mild but appropriate edema as well as some ecchymosis along the radial aspect of the left wrist. Patient is able to form a full composite fist and extend all digits, there is some subjective numbness in the radial 3 digits bilaterally. Imaging: Deferred today. Ms. Dion Mace was advised as to contrast therapies and/or to take analgesics/anti-inflam matories as needed and all contraindications were reviewed. Supporting Information Below: Medications: Current Outpatient Medications Medication Sig codeine/butalbital/ASA /caffein (FIORINAL-CODEINE #3 ORAL) Take by mouth. TRELEGY ELLIPTA 100-62.5-25 mcg inhalation powder INHALE 1 PUFF INSTRUCTED ONCE DAILY. hydroCHLOROthiazide (HYDRODIURIL, ESIDRIX) 12.5 mg tablet Take 1 tablet by mouth once daily folic acid 1 mg tablet Take 1 tablet by mouth once daily. cholecalciferol, Vitamin D3, (VITAMIN D3) 1,250 mcg (50,000 unit) cap capsule Take 50,000 Units by mouth one time a week. levothyroxine (SYNTHROID) 150 mcg tablet Take 175 mcg by mouth once daily. calcium citrate/vitamin D3 (CALCIUM CITRATE + D ORAL) Take 1 tablet by mouth once daily. MAGNESIUM ORAL Take 1 tablet by mouth once daily. Ferrous Sulfate 27 mg iron tab Take 27 mg by mouth three times daily. ipratropium-albuterol (DUONEB) 0.5 mg-3 mg(2.5 mg base)/3 mL nebu Inhale 3 mL as instructed every 6 hours as needed (wheezing/shortness of breath). Melatonin 5 mg cap Take 1 capsule by mouth daily at bedtime. albuterol (PROVENTIL) 2.5 mg /3 mL (0.083 %) nebulizer solution INHALE CONTENTS OF 1 VIAL NEBULIZED EVERY 8 HOURS esomeprazole (NEXIUM) 40 mg capsule Take 40 mg by mouth DAILY (6 AM). Nebulizers 1 Each as needed. citalopram (CELEXA) 40 mg tablet Take 1 tablet by mouth once daily. albuterol HFA (PROAIR HFA) 90 mcg/actuation inhaler Inhale 2 Puffs as instructed twice daily as needed. cyclobenzaprine (FLEXERIL) 10 mg tablet Take 1 tablet by mouth twice daily as needed. Cholecalciferol, Vitamin D3, 5,000 unit tab Take 1 tablet by mouth once daily. (Patient not taking: Reported on 12/27/2022) No current facility-administered medications for this visit. Allergies: Penicillins, Pyridium [Phenazopyridine Hcl], Sulfa (Sulfonamide Antibiotics), Zoloft [Sertraline], and Zonisamide This note was partially generated using VMTurbo voice recognition system, and there may be some incorrect words, spellings, and punctuation that were not noted in checking the note before saving. Georgia Bush PA-C Allergies As of Date: 02/07/2023 Noted Allergy Reaction PENICILLINS 06/12/2014 7 - Swelling 10 - Anaphylaxis PYRIDIUM (PHENAZOPYRIDINE HCL) 06/12/2014 8 - GI Upset 11 - Vomiting SULFA (SULFONAMIDE ANTIBIOTICS) 06/12/2014 7 - Swelling 10 - Anaphylaxis ZOLOFT (SERTRALINE) 07/29/2021 14 - Other: See Comments Comments: Depression ZONISAMIDE 05/19/2016 2 - Rash Date Reviewed: 02/07/2023 Reviewed by: Georgia Bush PA-C - Fully Assessed Reason for Visit: Established Patient [175] Post Op [174] Pain [78] Established Patient [175] Post Op [174] Pain (more content not included)... Normal [facility] ANES POSTPROC EVALon 023 ANES POSTPROC EVAL HNO ID: [id number] Author: Carmela Antoine MD Service: Anesthesiology Author Type: Anesthesiologist Type: Anesthesia Postprocedure Evaluation Filed: 01/26/2023 10:09 AM Note Text: POST ANESTHESIA EVALUATION NOTE : 1945 Procedure Summary Date: 01/26/23 Room / Location: [facility] OR02 / [facility] Anesthesia Start: 811 Anesthesia Stop: 919 Procedures: DECOMPRESSION NERVE MEDIAN CARPAL TUNNEL (Bilateral: Wrist) INCISION EXTENSOR TENDON SHEATH WRIST (Left: Wrist) Diagnosis: Bilateral carpal tunnel syndrome De Quervain's tenosynovitis Right wrist pain (Bilateral carpal tunnel syndrome [G56.03]) (De Quervain's tenosynovitis [M65.4]) (Right wrist pain [M25.531]) Surgeons: Carlos Reeves MD Responsible Provider: Carmela Antoine MD Anesthesia Type: MAC ASA Status: 3 Anesthesia Type: MAC Last Vitals Vitals Value Taken Time BP 143/67 01/26/23 1000 Temp 36.7 ?C (98.1 ?F) 01/26/23 0918 Pulse 51 01/26/23 1008 Resp 33 01/26/23 1008 SpO2 91 % 01/26/23 1008 Vitals shown include unvalidated device data. Post Anesthesia Patient Status Patient Evaluation: PACU. PACU/ICU Patient Condition: stable. Anticipated Disposition: phase 2 then home. Neurological Status: aware and responsive. Pulmonary Status: breathing comfortably on room air Airway Control: returned to baseline unsupported. Cardiovascular Status: stable. Pain Management: clinically adequate - multimodal analgesia pain management approach Postoperative Hydration: acceptable. Intraoperative Events: no significant anesthesia events Post Operative Nausea/Vomiting Status: no significant post operative nausea or vomiting Recommendation: continue current plan of care. Anesthesia Observations No Documentation SIGNATURE: Carmela Antoien MD PATIENT NAME: Dion Mace DATE: January 26, 2023 TIME: 10:09 AM CSN: [id number] [facility] ANES PRE-OPon 01-26-2023 ANES PRE-OP HNO ID: [id number] Author: Carmela Antoine MD Service: Anesthesiology Author Type: Anesthesiologist Type: Anesthesia Preprocedure Evaluation Filed: 01/26/2023 7:09 AM Note Text: ANESTHESIOLOGY DAY OF SURGERY NOTE : 1945 Procedure Information Date/Time: 01/26/23 0815 Procedures: DECOMPRESSION NERVE MEDIAN CARPAL TUNNEL (Bilateral: Wrist) INCISION EXTENSOR TENDON SHEATH WRIST (Left: Wrist) Location: [facility] OR02 / [facility] [place] Surgeons: Carlos Reeves MD Estimated body mass index is 30.16 kg/m? as calculated from the following: Height as of 01/10/23: 153.7 cm (5' 0.5 ). Weight as of 01/10/23: 71.2 kg (157 lb). Most recent hematocrit and potassium results: Hematocrit 40.3 07/29/2021 Potassium 3.9 07/29/2021 Relevant Problems CARDIO (+) Aortic valve insufficiency (+) Benign hypertension (+) CAD (coronary artery disease) (+) Heart murmur (+) Migraine (+) RBBB ENDO (+) Hypothyroidism GI (+) Hiatal hernia NEURO-PSYCH (+) Migraine PULMONARY (+) COPD (chronic obstructive pulmonary disease) (HCC) I - PHYSICAL EVALUATION AIRWAY Patient intubated: No. Tracheostomy tube not present Mallampati: II. TM distance: >3 FB. Neck ROM: full ROM without neurological symptoms. Mouth opening: adequate. Short neck: no. Thick neck: no Benitez present: no DENTAL Dental findings: missing tooth/teeth. Additional exam findings: yes. CARDIOVASCULAR Rhythm: regular Rate: normal PULMONARY Breath sounds clear to auscultation. ABDOMINAL Obese: obesity present. II - ANESTHESIA PLAN ASA Score: 3 Anesthetic Plan: MAC The patient is not a current smoker. NPO Status: adequate Beta Raeann Monitoring Plan Monitoring plan: standard ASA. Post Procedure Analgesic Plan Postoperative analgesic plan: multimodal analgesia. Informed Consent Anesthetic risks, benefits, alternatives, personnel and consent discussed: yes. Patient / Responsible Democrat agrees to proceed: yes Patient / Surrogate agrees to blood products: blood products not planned DNR status not reviewed with patient and/or family prior to surgery. Significant changes in the patient condition since the History and Physical, not otherwise documented in primary service progress note: no. Potential Anesthesia issues that may suggest increased risk of complications or contraindication to planned procedure: none. No vitals data found for the desired time range. Facility-Administered Medications as of 01/26/2023 Medication Dose Route Frequency - lidocaine (PF) 10 mg/mL (1 %) 1-2 mg injection (XYLOCAINE) 0.1-0.2 mL INTRADERMAL PRN - lactated ringers iv infusion 5-30 mL/hr INTRAVENOUS CONTINUOUS - NaCl 0.9% iv flush bag 20 mL INTRAVENOUS PRN - clindamycin iv piggyback 600 mg in D5W 50 mL (CLEOCIN) 600 mg INTRAVENOUS Pre-Op Once - acetaminophen 1,000 mg tab(s) (TYLENOL) 1,000 mg ORAL Pre-Op Once Outpatient Medications as of 01/26/2023 Medication Sig - TRELEGY ELLIPTA 100-62.5-25 mcg inhalation powder INHALE 1 PUFF INSTRUCTED ONCE DAILY. - hydroCHLOROthiazide (HYDRODIURIL, ESIDRIX) 12.5 mg tablet Take 1 tablet by mouth once daily - folic acid 1 mg tablet Take 1 tablet by mouth once daily. - cholecalciferol, Vitamin D3, (VITAMIN D3) 1,250 mcg (50,000 unit) cap capsule Take 50,000 Units by mouth one time a week. - levothyroxine (SYNTHROID) 150 mcg tablet Take 175 mcg by mouth once daily. - calcium citrate/vitamin D3 (CALCIUM CITRATE + D ORAL) Take 1 tablet by mouth once daily. - MAGNESIUM ORAL Take 1 tablet by mouth once daily. - Ferrous Sulfate 27 mg iron tab Take 27 mg by mouth three times daily. - ipratropium-albuterol (DUONEB) 0.5 mg-3 mg(2.5 mg base)/3 mL nebu Inhale 3 mL as instructed every 6 hours as needed (wheezing/shortness of breath). - Melatonin 5 mg cap Take 1 capsule by mouth daily at bedtime. - albuterol (PROVENTIL) 2.5 mg /3 mL (0.083 %) nebulizer solution INHALE CONTENTS OF 1 VIAL NEBULIZED EVERY 8 HOURS - esomeprazole (NEXIUM) 40 mg capsule Take 40 mg by mouth DAILY (6 AM). - Nebulizers 1 Each as needed. - citalopram (CELEXA) 40 mg tablet Take 1 tablet by mouth once daily. - albuterol HFA (PROAIR HFA) 90 mcg/actuation inhaler Inhale 2 Puffs as instructed twice daily as needed. - cyclobenzaprine (FLEXERIL) 10 mg tablet Take 1 tablet by mouth twice daily as needed. - Cholecalciferol, Vitamin D3, 5,000 unit tab Take 1 tablet by mouth once daily. (Patient not taking: Reported on 12/27/2022) I have interviewed and examined the patient. I have reviewed the medical record and/or the pre-anesthesia evaluation, pertinent labs, and test results. This contains updated information obtained within 48 hours of Surgery/Procedure. SIGNATURE: Carmela Antoine MD PATIENT NAME: Dion Mace DATE: January 26, 2023 TIME: 7:09 AM CSN: [id number] [facility] OPERATIVE NOon 01-26-2023 OPERATIVE NO HNO ID: [id number] Author: Carlos Reeves MD Service: Orthopaedic Surgery Author Type: Physician Type: Operative Report Filed: 01/26/2023 9:38 AM Note Text: OPERATIVE/PROCEDURE REPORT LOG ID: [id number] SURGERY/PROCEDURE DATE: 01/26/2023 INCISION/PROCEDURE START TIME: 8:32 AM INCISION CLOSE/PROCEDURE END TIME: 9:10 AM SURGEON(S)/PROCEDURALI ST(S) AND B2B SALES CONSULTANT(S): Surgeon(s) and Role: * Carlos Reeves MD - Primary Physician Bag Inspector: Georgia Bush PA-C Registered Nurse Telegraph Inspector: Jessi Birch RN SURGERY/PROCEDURE(S): SURGEON 1: Carlos Reeves M.D. OPERATION: 1. Bilateral carpal tunnel release, open. 2. Left wrist, first dorsal compartment release with ganglion excision. 3. Right wrist Ulno-carpal joint (medium joint) injection. ANESTHESIA: MAC with local. PREOPERATIVE DIAGNOSIS: 1. Bilateral carpal tunnel syndrome. 2. Left wrist, stenosing tenosynovitis. 3. Left wrist, ganglion cyst. 4. Right wrist pain, chronic. POSTOPERATIVE DIAGNOSIS: Same OPERATIVE INDICATIONS: This is a pleasant 77 year old female who had worsening, numbness, and tingling. In addition, she had a retinacular cyst over the left first dorsal compartment including ongoing tendinitis from her first dorsal compartment. Lastly, the right wrist had swelling and pain on the ulnar fossa, ulnar carpal joint. Her electrodiagnostic showed Mild carpal tunnel syndrome. She exhausted conservative management and in the office, we discussed the risks, benefits, alternatives, and potential complications involving carpal tunnel releases, as well as first dorsal compartment release with ganglion excision and a ulnar carpal injection of the right wrist. And she wished to pursue surgical intervention. OPERATIVE FINDINGS: Consistent with postoperative diagnosis. Procedure Details: OPERATIVE PROCEDURE: On 01/26/2023, the patient was clearly identified in the preoperative area and marked accordingly on the right and left palms by myself, right ulnar wrist and left radial wrist. Patient was taken to the operative suite and placed in the supine position with an armboard on the right and left. Patient received 600 mg of clindamycin in the IV within 1 hour of incision or tourniquet. Anesthesia assumed care of the head and neck for the remainder of the case and began a MAC anesthetic. All other bony landmarks were appropriately padded in standard fashion. After a alcohol swab, the left palm and radial wrist was injected with 1% lidocaine with epinepherine 1:100,000 for total of 8 and 2 mL, respectively. The right arm was then, first sterilely prepped and draped in standard fashion. An appropriate time-out was conducted and all in the room were in agreement, signed consent form was on the chart. Local anesthetic was provided at the palm and wrist with 2% lidocaine with epinepherine 1:100,000 for total of 10 mL. A steroid injection with half cc of 1% lidocaine plain and 3 mg of Celestone was injected in the ulnar fossa of the right wrist. Next, a Hemeclear tourniquet was applied to the right upper extremity. A longitudinal incision was made with in line with the third web space from 1 cm distal of the wrist crease to Crane's cardinal line. I used Arlin Rakes to retract the soft tissues. Bipolar electrocautery was used for hemostasis. I bluntly dissected down with Littler scissors to distal edge of the transverse carpal ligament until a flash of fat was noted. I directly divided distal edge of the transverse carpal ligament with a #15 blade. Attention was then focused on the proximal portion and I used Littler scissors to bluntly dissect off the volar surface of the transverse carpal ligament. A carpal tunnel and median nerve protection guide was slid directly under the ligament for dilation and a second time for appropriate positioning, this was passed freely without any resistance. Subsequently, I selected a mini meniscotome Dimock blade and slid this in the protective guide, completely dividing the transverse carpal ligament. Arlin rakes were used to view up the wound to visualize for complete release and a [place] elevator was used to palpate for complete release. At this point, the tourniquet was removed safely and hemostasis was observed. The wound was copiously irrigated with normal saline and I closed with 3-0 nylons in horizontal mattress fashion for a total of 3. Xeroform gauze, sterile 4 x 4 gauze, sterile, Webril padding was applied. I then turned my focused to the left upper extremity. The exact same steps in sequential fashion were carried out on the left side, without the need for a tourniquet, as was outlined previously on the right above for the carpal tunnel release. At the completion of the procedure, the median nerve was noted to be completely released both visually and with palpation of the transected Transverse carpal ligament. Next, a longitudinal incision was made over the rad (more content not included)... Normal [facility] HISTORY PHYSICALon 3 HISTORY PHYSICAL HNO ID: [id number] Author: Aparna Scott APRN.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 Service: ? Author Type: Nurse Practitioner Type: HANDP Filed: 01/10/2023 10:22 AM Note Text: HISTORY AND PHYSICAL EXAMINATION SERVICE DATE: 01/10/2023 SERVICE TIME: 9:37 AM PRIMARY CARE PHYSICIAN: Noble West, DO, DO REASON FOR VISIT: Dion Mace is a 77 year old female who is scheduled for Procedure(s): DECOMPRESSION NERVE MEDIAN CARPAL TUNNEL (Bilateral) INCISION EXTENSOR TENDON SHEATH WRIST (Left) at the request of Dr. Carlos Reeves MD for consultation. My final recommendation will be communicated back to the requesting physician by way of shared medical record or letter. Subjective The patient has the following: ACTIVE PROBLEM LIST Migraine Herpes Simplex Osteoporosis Hypothyroidism Copd (Chronic Obstructive Pulmonary Disease) (Hcc) Anemia Thrombocytosis Ibs (Irritable Bowel Syndrome) Shoulder Capsulitis Lyme Disease Insomnia Hyperlipidemia, Mixed Breast Lump Diverticulitis H1n1 Influenza Heart Murmur Hiatal Hernia History of Cardiac Cath History of Echocardiogram History of Stress Test Benign Hypertension Rheumatic Fever Serum Iron Raised TMJ (Dislocation of Temporomandibular Joint) History of Tobacco Abuse Cad (Coronary Artery Disease) Rbbb Chronic Fatigue Folic Acid Deficiency Aortic Valve Insufficiency Depression COVID-19 Immunization Status Overdue - COVID-19 VACCINE (1) Overdue - never done No completion, postpone, frequency change, or communication history exists for this topic. CHIEF COMPLAINT: Pre-op evaluation HPI: 77 year old female here for pre-op evaluation. Symptoms started about 2 years ago and have been worsening. +injection in left wrist that wasn't helpful. +bilateral hand numbness/tingling and wrist pain. Improved with flexeril, currently rated 6/10, and described as dull ache. Right wrist radiates into shoulder. REVIEW OF SYSTEMS: General: No weight loss, malaise or fevers. Neurological: Positive for: headaches and impaired sensorium (see HPI). Negative for: multiple sclerosis, Parkinson's disease, seizures and strokes. Respiratory: Positive for: COPD, dyspnea, home oxygen (3L at night) and orthopnea. Negative for: asthma, current cough, tobacco use and obstructive sleep apnea. Cardiovascular: Positive for: arrhythmia (RBBB), CAD, hyperlipidemia, hypertension and murmur/valvular heart disease Negative for: angina, atrial fibrillation, chest pain, CHF and DVT/PE. GI: Positive for: GERD Negative for: abdominal pain, dysphagia, liver disease, nausea and vomiting. : Positive for: frequent urination. Negative for: dysuria, hematuria, urinary incontinence, renal failure and urgency. 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 Endocrine: Positive for: hypothyroidism. Negative for: diabetes mellitus and hyperthyroidism. Hematology: Positive for: anemia. Negative for: bruises/bleeds easily. Oncology: No history of CA metastasis, chemo within 30 days, or radiotherapy within 90 days. No history of oncological symptoms or problems. Psych: Positive for: depression. Negative for: anxiety. Musculoskeletal: See HPI. Skin: Negative for lesions, rash and itching. PAST MEDICAL HISTORY Diagnosis Date Anemia Benign hypertension Breast lump CAD (coronary artery disease) COPD (chronic obstructive pulmonary disease) (HCC) Diverticulitis H1N1 influenza 2012 hospitalized Heart murmur Hiatal hernia History of cardiac cath 09/21/2012 luminal irregularity 10-20% in the proximal AND distal LAD luminal irregularities proximal ramus normal circ normal RCA normal L ventricular hemodynamics normal R heart pressures History of echocardiogram 04/27/2021 EF 75-80%, mild AR, mild MR, trace-mild TR, trace LA History of stress test 03/13/2009 normal lexiscan stress tecjmetium sestambi myocardial perfusion study hyperkinetic ventricle with supernormal EF 76% History of stress test 07/06/2021 overall technically difficult study motion noted on review of rotating raw images TID ratio is 0.93 EF 70% no regional wall motion abnormalities no clear evidence of fixed or reversible defects History of tobacco abuse Hypothyroidism IBS (irritable bowel syndrome) Lyme disease Osteoporosis RBBB Rheumatic fever TMJ (dislocation of temporomandibular joint) PAST SURGICAL HISTORY Procedure Laterality Date ADENOIDECTOMY PRIMARY AGE 13/> APPENDECTOMY BREAST BX NEEDLE CORE LEFT COLONOSCOPY EGD HEART CATHETERIZATION 2011 [facility] HIATAL HERNIA REPAIR HX MRI SHOULDER WO right shoulder REIMPLANTATION OF KIDNEY right SALPINGO-OOPHORECTOMY COMPL/PRTL UNI/BI SPX TONSILLECTOMY PRIMARY/SECONDARY Tonsillectomy TOTAL ABDOMINAL HYSTERECT W/WO RMVL TUBE OVARY 1970 FAMILY HISTORY Problem Relation Age of Onset Cancer Mother 1978 Cancer Father lung problem (more content not included)... Normal [facility] Shandra 01-04-2023 CNPN Telephone ([place]) DION MACE ([id number]) 1945 F Date Time Provider Department 01/04/23 CARLOS REEVES During your visit today, we recorded the following information about you: Darcy Oviedo LPN 01/04/2023 2:50 PM Signed Patient called stating she received an surgery confirmation letter stating her procedure is on 01/28/2023. Advised patient that records show procedure being scheduled for 01/26/23. Encouraged patient to bring letter to Pre-Anes appointment on 01/10 to clarify which date is correct. Patient verbalized understanding. DERIK Stevens Ma 01/04/2023 3:55 PM Signed Called and spoke with patient. Confirmed her surgery date is 01/26/23 as scheduled. Allergies As of Date: 01/04/2023 Noted Allergy Reaction PENICILLINS 06/12/2014 7 - Swelling 10 - Anaphylaxis PYRIDIUM (PHENAZOPYRIDINE HCL) 06/12/2014 8 - GI Upset 11 - Vomiting SULFA (SULFONAMIDE ANTIBIOTICS) 06/12/2014 7 - Swelling 10 - Anaphylaxis ZOLOFT (SERTRALINE) 07/29/2021 14 - Other: See Comments Comments: Depression ZONISAMIDE 05/19/2016 2 - Rash Date Reviewed: 12/27/2022 Reviewed by: Carlos Reeves MD - Fully Assessed Reason for Visit: Patient Question [9402] Cmt: Regarding date of procedure Prescriptions as of 01/04/2023 - TRELEGY ELLIPTA 100-62.5-25 mcg inhalation powder INHALE 1 PUFF INSTRUCTED ONCE DAILY. - hydroCHLOROthiazide (HYDRODIURIL, ESIDRIX) 12.5 mg tablet Take 1 tablet by mouth once daily - folic acid 1 mg tablet Take 1 tablet by mouth once daily. - cholecalciferol, Vitamin D3, (VITAMIN D3) 1,250 mcg (50,000 unit) cap capsule Take 50,000 Units by mouth one time a week. - levothyroxine (SYNTHROID) 150 mcg tablet Take 175 mcg by mouth once daily. - calcium citrate/vitamin D3 (CALCIUM CITRATE + D ORAL) Take 1 tablet by mouth once daily. - MAGNESIUM ORAL Take 1 tablet by mouth once daily. - Ferrous Sulfate 27 mg iron tab Take 27 mg by mouth three times daily. - ipratropium-albuterol (DUONEB) 0.5 mg-3 mg(2.5 mg base)/3 mL nebu Inhale 3 mL as instructed every 6 hours as needed (wheezing/shortness of breath). - Melatonin 5 mg cap Take 1 capsule by mouth daily at bedtime. - albuterol (PROVENTIL) 2.5 mg /3 mL (0.083 %) nebulizer solution INHALE CONTENTS OF 1 VIAL NEBULIZED EVERY 8 HOURS - esomeprazole (NEXIUM) 40 mg capsule Take 40 mg by mouth DAILY (6 AM). - Nebulizers 1 Each as needed. - citalopram (CELEXA) 40 mg tablet Take 1 tablet by mouth once daily. - albuterol HFA (PROAIR HFA) 90 mcg/actuation inhaler Inhale 2 Puffs as instructed twice daily as needed. - cyclobenzaprine (FLEXERIL) 10 mg tablet Take 1 tablet by mouth twice daily as needed. - Cholecalciferol, Vitamin D3, 5,000 unit tab Take 1 tablet by mouth once daily. Meds Comments as of 05/15/2015: Patient discontinued the lotrisone lotion. Patient states that PCP discontinued the dicyclomine. Problem List As Of Date 01/04/2023 Noted Resolved Migraine [G43.909] 06/12/2014 Herpes simplex [B00.9] 06/12/2014 Osteoporosis [M81.0] 06/12/2014 Hypothyroidism [E03.9] 06/12/2014 COPD (chronic obstructive pulmonary disease) (H*06/12/2014 Anemia [D64.9] 06/12/2014 Thrombocytosis (HCC) [D75.839] 09/02/2014 IBS (irritable bowel syndrome) [K58.9] 09/12/2014 Shoulder capsulitis [M77.8] 12/24/2014 Lyme disease [A69.20] Insomnia [G47.00] 02/11/2015 Intractable migraine with aura without status m*04/27/2016 Hyperlipidemia, mixed [E78.2] 04/02/2020 Breast lump [N63.0] Diverticulitis [K57.92] H1N1 influenza [J10.1] 2011 Heart murmur [R01.1] Hiatal hernia [K44.9] History of cardiac cath [Z98.890] 09/21/2012 History of echocardiogram [Z92.89] 08/07/2012 History of stress test [Z92.89] 03/13/2009 Benign hypertension [I10] Rheumatic fever [I00] Serum iron raised [R79.0] TMJ (dislocation of temporomandibular joint) [S* History of tobacco abuse [Z87.891] CAD (coronary artery disease) [I25.10] RBBB [I45.10] Chronic fatigue [R53.82] 10/02/2020 Folic acid deficiency [E53.8] 07/30/2021 Encounter Status:Closed by ADELAIDA BOBO MA on 01/04/23 [facility] Shandra 12-30-2022 LEESA Telephone ([place]) DION MACE ([id number]) 1945 F Date Time Provider Department 12/30/22 CARLOS REEVES During your visit today, we recorded the following information about you: Adelaida Bobo To 12/30/2022 2:32 PM Signed Patient scheduled for Bilateral CTR, Left wrist 1st dorsal compartment release and injection right wrist medium joint. Dr. Reeves requesting 1.5 hours. Surgical request completed. Post op appointments scheduled and mailed to patient. Yesy Andre To 12/31/2022 8:13 AM Signed Surgery has been scheduled as requested. Allergies As of Date: 12/30/2022 Noted Allergy Reaction PENICILLINS 06/12/2014 7 - Swelling 10 - Anaphylaxis PYRIDIUM (PHENAZOPYRIDINE HCL) 06/12/2014 8 - GI Upset 11 - Vomiting SULFA (SULFONAMIDE ANTIBIOTICS) 06/12/2014 7 - Swelling 10 - Anaphylaxis ZOLOFT (SERTRALINE) 07/29/2021 14 - Other: See Comments Comments: Depression ZONISAMIDE 05/19/2016 2 - Rash Date Reviewed: 12/27/2022 Reviewed by: Carlos Reeves MD - Fully Assessed Reason for Visit: Schedule Surgery [1330] Primary Visit Diagnosis:Bilateral carpal tunnel syndrome [G56.03] Other Visit Diagnoses:De Quervain's tenosynovitis [M65.4] Right wrist pain [M25.531] Order(s):SURGICAL REQUEST - ELECTIVE (06/2020) [[id number]] Order #: [id number]: 1 Prescriptions as of 12/31/2022 - TRELEGY ELLIPTA 100-62.5-25 mcg inhalation powder INHALE 1 PUFF INSTRUCTED ONCE DAILY. - hydroCHLOROthiazide (HYDRODIURIL, ESIDRIX) 12.5 mg tablet Take 1 tablet by mouth once daily - folic acid 1 mg tablet Take 1 tablet by mouth once daily. - cholecalciferol, Vitamin D3, (VITAMIN D3) 1,250 mcg (50,000 unit) cap capsule Take 50,000 Units by mouth one time a week. - levothyroxine (SYNTHROID) 150 mcg tablet Take 175 mcg by mouth once daily. - calcium citrate/vitamin D3 (CALCIUM CITRATE + D ORAL) Take 1 tablet by mouth once daily. - MAGNESIUM ORAL Take 1 tablet by mouth once daily. - Ferrous Sulfate 27 mg iron tab Take 27 mg by mouth three times daily. - ipratropium-albuterol (DUONEB) 0.5 mg-3 mg(2.5 mg base)/3 mL nebu Inhale 3 mL as instructed every 6 hours as needed (wheezing/shortness of breath). - Melatonin 5 mg cap Take 1 capsule by mouth daily at bedtime. - albuterol (PROVENTIL) 2.5 mg /3 mL (0.083 %) nebulizer solution INHALE CONTENTS OF 1 VIAL NEBULIZED EVERY 8 HOURS - esomeprazole (NEXIUM) 40 mg capsule Take 40 mg by mouth DAILY (6 AM). - Nebulizers 1 Each as needed. - citalopram (CELEXA) 40 mg tablet Take 1 tablet by mouth once daily. - albuterol HFA (PROAIR HFA) 90 mcg/actuation inhaler Inhale 2 Puffs as instructed twice daily as needed. - cyclobenzaprine (FLEXERIL) 10 mg tablet Take 1 tablet by mouth twice daily as needed. - Cholecalciferol, Vitamin D3, 5,000 unit tab Take 1 tablet by mouth once daily. Meds Comments as of 05/15/2015: Patient discontinued the lotrisone lotion. Patient states that PCP discontinued the dicyclomine. Problem List As Of Date 12/30/2022 Noted Resolved Migraine [G43.909] 06/12/2014 Herpes simplex [B00.9] 06/12/2014 Osteoporosis [M81.0] 06/12/2014 Hypothyroidism [E03.9] 06/12/2014 COPD (chronic obstructive pulmonary disease) (H*06/12/2014 Anemia [D64.9] 06/12/2014 Thrombocytosis (HCC) [D75.839] 09/02/2014 IBS (irritable bowel syndrome) [K58.9] 09/12/2014 Shoulder capsulitis [M77.8] 12/24/2014 Lyme disease [A69.20] Insomnia [G47.00] 02/11/2015 Intractable migraine with aura without status m*04/27/2016 Hyperlipidemia, mixed [E78.2] 04/02/2020 Breast lump [N63.0] Diverticulitis [K57.92] H1N1 influenza [J10.1] 2012 Heart murmur [R01.1] Hiatal hernia [K44.9] History of cardiac cath [Z98.890] 09/21/2012 History of echocardiogram [Z92.89] 08/07/2012 History of stress test [Z92.89] 03/13/2009 Benign hypertension [I10] Rheumatic fever [I00] Serum iron raised [R79.0] TMJ (dislocation of temporomandibular joint) [S* History of tobacco abuse [Z87.891] CAD (coronary artery disease) [I25.10] RBBB [I45.10] Chronic fatigue [R53.82] 10/02/2020 Folic acid deficiency [E53.8] 07/30/2021 Letter Text Encounter Status:Closed by YESY ANDRE MA on 12/31/22 [facility] CNOVon 12-27-2022 CNOV Office Visit (ANSLEY ) DION MACE ([id number]) 1945 F Date Time Provider Department 12/27/22 11:00 AM CARLOS REEVES During your visit today, we recorded the following information about you: Weight Height 70.3 kg 1.537 m Carlos Reeves MD 01/20/2023 10:21 AM Signed Carlos Reeves MD Department of Orthopaedics Orthopaedics [address] [facility] [address] Dept: [phone] Dept December 27, 2022 CHIEF COMPLAINT: New and Pain of the Right Wrist and New and Pain of the Left Wrist HPI Patient here for evaluation of bilateral wrist pain. Patient states she has had pain for over a year. Has gotten worse in the past 2 months. She is wearing a cock up wrist on her wrist and states it helps her shoulder pain. She is having numbness and tingling in her left 1-3 fingers. She has been dropping things.She had been going to [facility] and was given a cortisone injection in her left wrist 1 1/2 years ago and did not help. She feel her right wrist is worse than her left. She was told she needed surgery but did not want to have it done there. Patient is right hand dominant. Wil with patient today. X-rays done today. Patient did have an EMG done at [facility] 1 1/2 years ago. ASSESSMENT: G56.03 Bilateral carpal tunnel syndrome (primary encounter diagnosis) M65.4 De Quervain's tenosynovitis M25.531 Right wrist pain PLAN: She has a positive nerve test for right carpal tunnel findings. She has consistent symptoms for the same problem on the left though they did not do bilateral exams at that time. She previously had a successful carpal tunnel injection however on the left in the past as well albeit temporary. The right wrist joint proper is giving her some trouble and certainly the left first dorsal compartment for stenosing tenosynovitis. We reviewed all of these options. The risks, benefits, alternatives and potential complications involving each. She is interested in getting both of her carpal tunnels done and at the same setting the de Quervain's released and we will provide her while under anesthesia a cortisone injection for the right wrist. FOLLOW UP INSTRUCTIONS: Get her scheduled at her convenience. Ms. Dion Mace was advised as to contrast therapies and/or to take analgesics/anti-inflam matories as needed and all contraindications were reviewed. OBJECTIVE: Ms. Dion Mace is a pleasant 77 year old in no apparent distress. Gen:There were no vitals taken for this visit. nl development, non obese, no deformities ENT: Normocephalic, normal hearing, moist mucosa CV: Pulses:Radial= 2+ and symmetric, capillary refill < 2 secs, no peripheral edema/varicosities Skin: no rash, bruising or lesions. Good turgor. Psych: cooperative and appropriate, alert and oriented x 3, good mood and affect. Musculoskeletal: Cervical spine has supple range of motion and no tenderness to palpation, Spurling's sign negative. Shoulders and elbows have full range of motion. negative Tinel's over the cubital tunnel, no subluxation of ulnar nerve at the elbow with flexion. Negative Tinel's over Guyon's canal. Inspection reveals no thenar atrophy. Diminished sensation to light touch in the radial 3 digits, right greater than left. Sensation intact in the ulnar 2 digits with out intrinsic atrophy/weakness. Positive Tinel's at the wrist, positive carpal tunnel compression testing on the again right worse than left. No locking or catching of the digits. Tender to palpation at the first dorsal compartment of the left wrist with a positive Cheyenne's test. Good range of motion however of the left wrist. Right wrist has some mild diminished motion secondary to some pain in the radiocarpal and ulnar-sided fossa of the wrist. Tender at the ulnar fossa as well. IMAGING: IMPRESSION: Stable mild left first metacarpal carpal joint degenerative changes. Debeader: DRE Transcribe Date/Time: Dec 28 2022 9:54A Dictated by : AMANDO MATTHEWS MD This examination was interpreted and the report reviewed and electronically signed by: AMANDO MATTHEWS MD on Dec 28 2022 9:55AM EST Results-Findings * * *Final Report* * * DATE OF EXAM: Dec 27 2022 10:55AM [id number] - XR WRIST 3V PA/LAT/OBL BELKIS / PROCEDURE REASON: Pain * * * * Physician Interpretation * * * * TITLE: XR WRIST 3V PA/LAT/OBL BELKIS CLINICAL INDICATION: Pain TECHNIQUE: 3 view radiographic study of the bilateral wrists COMPARISON: Left wrist radiograph dated May 18, 2021 FINDINGS: Left wrist: No acute fracture or dislocation identified. Stable mild first metacarpal carpal joint degenerative changes with mild subchondral sclerosis and mild hypertrophic change. Right wrist: No acute fracture or dislocation. Joint spaces preserved. Supporting Subjective Info (more content not included)... Normal [facility] XR WRIST 3V PA/LAT/OBL BILon 12-27-2022 XR WRIST 3V PA/LAT/OBL BELKIS * * *Final Report* * * DATE OF EXAM: Dec 27 2022 10:55AM [id number] - XR WRIST 3V PA/LAT/OBL BELKIS / PROCEDURE REASON: Pain * * * * Physician Interpretation * * * * TITLE: XR WRIST 3V PA/LAT/OBL BELKIS CLINICAL INDICATION: Pain TECHNIQUE: 3 view radiographic study of the bilateral wrists COMPARISON: Left wrist radiograph dated May 18, 2021 FINDINGS: Left wrist: No acute fracture or dislocation identified. Stable mild first metacarpal carpal joint degenerative changes with mild subchondral sclerosis and mild hypertrophic change. Right wrist: No acute fracture or dislocation. Joint spaces preserved. IMPRESSION: Stable mild left first metacarpal carpal joint degenerative changes. Debeader: PSCB Transcribe Date/Time: Dec 28 2022 9:54A Dictated by : AMANDO MATTHEWS MD This examination was interpreted and the report reviewed and electronically signed by: AMANDO MATTHEWS MD on Dec 28 2022 9:55AM EST [id number] Normal [facility] XR WRIST GENERAL 3V PA/LAT/O BL BILATERALon 12-27-2022 [facility] CNOVon 08-09-2022 CNOV Office Visit (PULMWS ) DION MACE ([id number]) 1945 F Date Time Provider Department 08/09/22 10:30 AM CARMELA BRANCH During your visit today, we recorded the following information about you: Pulse Respiration Blood pressure Weight 68/minute 14/minute 126/64 66.7 kg Height 1.549 m Margietayla Huston HOSPICE DIRECTOR 08/09/2022 1:36 PM Signed Intake information documented in the prior visit with JACINTO Beck today. Carmela Branch PA-C 08/09/2022 1:36 PM Signed [facility] Respiratory [place], 08/09/2022: Name: Dion Mace : 1945 The patient is here today by herself. HPI: Dion Mace is a 76 yo female former smoker, 60-pack years (quit 2003), with PMH significant for HTN, CAD s/p cath 2011, diverticulitis, hiatal hernia, hypothyroidism, IBS, rheumatic fevers, osteoporosis, and COPD. The patient is here for follow up of COPD. Since the last Pulmonary Clinic visit 04/06/2021, the patient has not required ED care for exacerbation. There has been no hospital admission for exacerbation. Claims to be consistently compliant with prescribed maintenance Rx Trelegy ellipta daily. Does not require rescue bronchodilator use. Denies cough. No hemoptysis. No wheezing. No dyspnea at rest. Exertional dyspnea has not changed. Difficulty with carrying objects, being outside, getting yard work done. Currently wearing 3 L supplemental oxygen at night. DME: Sara Per patient, she is establishing care with [facility] on 08/18/22. PMH: Updated with patient today. FAMH: Updated with patient today. SOCH: Updated with patient today. IMMUNIZATIONS Prevnar 13 - 10/09/2020, 08/30/2016 Pneumovax - 02/11/2013 Influenza - 09/09/2021 COVID-19 - xx ROS: General: Generally feels well. Appetite good. Eyes, Ears, nose, throat: No post nasal drip, rhinorrhea, purulent nasal discharge, epistaxis. No hoarseness. Vision stable. Cardiac: No angina, edema. Sleeps in recliner because of my breathing and reflux . Resp: See HPI. GI: No heartburn at this time. No dysphagia. Musculoskeletal: Chronic back pain. Neuro: No headache, focal weakness, tremor. Skin: No rash. Otherwise negative. Allergies were reviewed and updated, and medications were reconciled with the patient. PHYSICAL EXAMINATION: BP 126/64 Pulse 68 Resp 14 Ht 154.9 cm (5' 1 ) Wt 66.7 kg (147 lb) SpO2 95% BMI 27.78 kg/m? Gen: No acute distress. Cooperative with examination. ENT: Oral hygeine and dentition good. Pharynx clear. No halitosis. No sign of oral thrush. Resp: No stridor, accessory respiratory muscle use, supra-sternal or intercostal retractions. No wheezes, crackles. CV: Regular rythm. Normal heart sounds. Radial pulses normal. Abd: Non distended. MSK: No kyphoscoliosis. Ext: Warm and well perfused. No clubbing, cyanosis, edema. Skin: No rash, ecchymoses. Neuro: Mental status normal. Affect normal. No tremor. DATA REVIEW: DATE: 08/09/2022 10/09/2020 07/07/2020 07/10/2015 FVC 2.44, 101% 2.54, 102% 1.99, 80% 2.14, 78% FEV1 0.89, 48% 1.37, 71% 0.96, 49% 1.05, 50% FEV1/FVC 0.36 0.54 0.48 0.49 DLco xx xx xx 11.3, 57% Echocardiogram, 05/02/2021 Interpretation Summary LVEF 75 to 80% with mild LV diastolic dysfunction. The right ventricle is normal in size and function. No hemodynamically significant valvular aortic stenosis. Mild aortic regurgitation. There is mild mitral regurgitation. There is Trace to mild tricuspid regurgitation. Right ventricular systolic pressure is elevated at 35- 40mmHg. Trace pulmonic valvular regurgitation. Trivial pericardial effusion. No any prior study available for comparison. ASSESSMENT/PLAN: 1. Moderate COPD (chronic obstructive pulmonary disease) (HCC) - ICD9: 496, ICD10: J44.9 (primary diagnosis) Continue Trelegy ellipta 1 inhalation daily. Rinse mouth after each use to help prevent oral thrush. FEV1 today stable when compared to previous PFTs. Last PFT was inconsistent with the trend previously seen and today. Albuterol HFA inhaler, 2 inhalations 10-15 minutes prior to activities associated with shortness of breath, and as needed for rescue relief of shortness of breath or wheezing, up to 4 times daily. 2. Former smoker - ICD9: V15.82, ICD10: Z87.891 Patient does not qualify for lung cancer screening. I addressed the questions of the patient, and she expressed understanding and acceptance of my answers. Carmela Branch PA-C Referring Provider: SELF [[id number]] Allergies As of Date: 08/09/2022 Noted Allergy Reaction PENICILLINS 06/12/2014 7 - Swelling 10 - Anaphylaxis PYRIDIUM (PHENAZOPYRIDINE HCL) 06/12/2014 8 - GI Upset 11 - Vomiting SULFA (SULFONAMIDE ANTIBIOTICS) 06/12/2014 7 - Swelling 10 - Anaphylaxis ZOLOFT (SERTRALINE) 07/29/2021 14 - Other: See Comments Comments: Dep (more content not included)... Normal [facility] LABORATORYOrdered By: Siri Hopkins on 01-17-2022 Albumin BCP dye [Mass/Vol] 3.9 G/dL Invalid Interpretation Code 3.4 - 4.8 G/dL AO ADM SS Albumin/Globulin [Mass ratio] 1.1 {ratio} Invalid Interpretation Code 1.1 - 2.5 ratio AO ADM SS ALP [Catalytic activity/Vol] 142 U/L Invalid Interpretation Code 40 - 135 U/L AO ADM SS ALT With P-5'-P [Catalytic activity/Vol] 69 U/L Invalid Interpretation Code 14 - 59 U/L AO ADM SS Appearance (U) Clear (01/17/22 12:15 PM) Invalid Interpretation Code Clear AO Auto Urine SS AST With P-5'-P [Catalytic activity/Vol] 17 U/L Invalid Interpretation Code 10 - 40 U/L AO ADM SS Basophil, Absolute 0.10 103/mcL Invalid Interpretation Code 0.00 - 0.19 10^3/mcL AO Auto Heme SS Basophils/100 WBC (Bld) 0.8 % Invalid Interpretation Code 0.0 - 2.5 % AO Auto Heme SS Bilirubin [Mass/Vol] 0.2 mg/dL Invalid Interpretation Code 0.2 - 1.0 mg/dL AO ADM SS Bilirubin Ql (U) Negative (01/17/22 12:15 PM) Invalid Interpretation Code Negative AO Auto Urine SS Calcium [Mass/Vol] 8.6 mg/dL Invalid Interpretation Code 8.4 - 10.2 mg/dL AO ADM SS Chloride [Moles/Vol] 98 mmol/L Invalid Interpretation Code 98 - 107 mmol/L AO ADM SS CO2 [Moles/Vol] 29 mmol/L Invalid Interpretation Code 23 - 31 mmol/L AO ADM SS Color (U) Yellow (01/17/22 12:15 PM) Invalid Interpretation Code AO Auto Urine SS Creatinine [Mass/Vol] 0.91 mg/dL Invalid Interpretation Code 0.55 - 1.02 mg/dL AO ADM SS Electrolyte Balance 11.0 mEq/L Invalid Interpretation Code 4.0 - 15.0 mEq/L AO ADM SS Eosinophil, Absolute 0.30 103/mcL Invalid Interpretation Code 0.00 - 0.40 10^3/mcL AO Auto Heme SS Eosinophils/100 WBC (Bld) 3.0 % Invalid Interpretation Code 0.0 - 7.0 % AO Auto Heme SS Erythrocyte distribution width (RBC) [Ratio] 13.0 % Invalid Interpretation Code 11.5 - 14.5 % AO Auto Heme SS Globulin 3.6 G/dL Invalid Interpretation Code AO ADM SS Glucose [Mass/Vol] 94 mg/dL Invalid Interpretation Code 83 - 110 mg/dL AO ADM SS Glucose Test strip (U) [Mass/Vol] Negative Invalid Interpretation Code Negativemg/d L AO Auto Urine SS Hematocrit (Bld) [Volume fraction] 44.7 % Invalid Interpretation Code 37.0 - 47.0 % AO Auto Heme SS Hemoglobin (Bld) [Mass/Vol] 15.3 G/dL Invalid Interpretation Code 12.0 - 16.0 G/dL AO Auto Heme SS Hemoglobin Auto test strip (U) [Mass/Vol] Negative (01/17/22 12:15 PM) Invalid Interpretation Code Negative AO Auto Urine SS Ketones Ql (U) Trace mg/dL Invalid Interpretation Code Negativemg/d L AO Auto Urine SS Lymphocyte, Absolute 1.90 103/mcL Invalid Interpretation Code 0.77 - 3.85 10^3/mcL AO Auto Heme SS Lymphocytes/100 WBC (Bld) 21.8 % Invalid Interpretation Code 10.0 - 50.0 % AO Auto Heme SS MCH (RBC) [Entitic mass] 33.0 pg Invalid Interpretation Code 27.0 - 31.2 pg AO Auto Heme SS MCHC (RBC) [Mass/Vol] 34.2 G/dL Invalid Interpretation Code 33.0 - 37.0 G/dL AO Auto Heme SS MCV (RBC) [Entitic vol] 96.5 fL Invalid Interpretation Code 80.0 - 94.0 fL AO Auto Heme SS Monocyte, Absolute 1.00 103/mcL Invalid Interpretation Code 0.15 - 1.00 10^3/mcL AO Auto Heme SS Monocytes/100 WBC (Bld) 12.0 % Invalid Interpretation Code 1.7 - 13.0 % AO Auto Heme SS Neutrophil, Absolute 5.40 103/mcL Invalid Interpretation Code 2.85 - 6.16 10^3/mcL AO Auto Heme SS Neutrophils/100 WBC (Bld) 62.4 % Invalid Interpretation Code 37.0 - 80.0 % AO Auto Heme SS Platelet mean volume (Bld) [Entitic vol] 7.3 fL Invalid Interpretation Code 7.4 - 10.4 fL AO Auto Heme SS Platelets (Bld) [#/Vol] 464 103/mcL Invalid Interpretation Code 130 - 400 10^3/mcL AO Auto Heme SS Potassium [Moles/Vol] 4.2 mmol/L Invalid Interpretation Code 3.5 - 5.1 mmol/L AO ADM SS Protein [Mass/Vol] 7.5 G/dL Invalid Interpretation Code 6.4 - 8.2 G/dL AO ADM SS RBC (Bld) [#/Vol] 4.63 106/mcL Invalid Interpretation Code 4.20 - 5.40 10^6/mcL AO Auto Heme SS Sodium [Moles/Vol] 138 mmol/L Invalid Interpretation Code 136 - 145 mmol/L AO ADM SS UA Leuk Est Small *ABN* (01/17/22 12:15 PM) Invalid Interpretation Code Negative AO Auto Urine SS UA Nitrite Negative (01/17/22 12:15 PM) Invalid Interpretation Code Negative AO Auto Urine SS UA pH 5.5 (01/17/22 12:15 PM) Invalid Interpretation Code 5.0 - 8.0 AO Auto Urine SS UA Protein Negative Invalid Interpretation Code Negativemg/d L AO Auto Urine SS UA RBC None Seen /HPF Invalid Interpretation Code None Seen/HPF AO Auto Urine SS Comment on above: Result Comment: Spec imen volumes less than 5 ml may not yield chemical or microscopic results truly reflective of renal function or general metabolic status. Microscopic performed on unspun urine UA Spec Grav 1.020 (01/17/22 12:15 PM) Invalid Interpretation Code 1.015-1.025 AO Auto Urine SS UA Specimen Type Clean Catch (01/17/22 12:15 PM) Invalid Interpretation Code AO Auto Urine SS UA Squam Epithelial 0-5 /HPF Invalid Interpretation Code None Seen/HPF AO Auto Urine SS UA Urobilinogen 0.2 E.U./dL Invalid Interpretation Code 0.2-1.0E.U./ dL AO Auto Urine SS Urea nitrogen [Mass/Vol] 15 mg/dL Invalid Interpretation Code 7 - 18 mg/dL AO ADM SS Urea nitrogen/Creatinine [Mass ratio] 16 ratio Invalid Interpretation Code 7 - 27 ratio AO ADM SS WBC (Bld) [#/Vol] 8.60 103/mcL Invalid Interpretation Code 4.60 - 10.80 10^3/mcL AO Auto Heme SS WBC LM.HPF (Urine sed) [#/Area] 0-5 /HPF Invalid Interpretation Code None Seen/HPF AO Auto Urine SS LABORATORYOrdered By: SYSTEM SYSTEM on 01-17-2022 GFR 73 ml/min/1.73sqm Invalid Interpretation Code AO Chemistry S GFR Non- 60 ml/min/1.73sqm Invalid Interpretation Code AO Chemistry S WRIST MIN 3 VWS COMP LTon WRIST MIN 3 VWS COMP LT WRIST MIN 3 VWS COMP LT Ordering Physician: Noble West 05/18/2021 10:47 AM LEFT WRIST FIVE VIEWS: Clinical Statement: Left lateral aspect pain for three weeks Comparison: None FINDINGS: There are mild degenerative changes of the first carpal metacarpal joint with slight narrowing and osteophytosis. The other joint spaces are maintained. No chondrocalcinosis or erosions. No subluxations. IMPRESSION: Mild degenerative changes of the first carpometacarpal joint. ---- Electronic Signature on File ---- Signed By: Toby Taylor MD PhD [email or web address] Dictated: 05/18/2021 11:20 AM Signed: 05/18/2021 11:22 AM Reported By: TOBY TAYLOR M.D. Signed By: TOBY TAYLOR M.D. Normal [facility] 04-27-2021 [facility] [id number] CLI ECHOCARD ECHOCARDIOGRAM [place] [address] Noninvasive Cardiac Diagnostics Adult Echocardiogram Report Name: DION MACE Study Date: 04/27/2021 02:59 PMBP: 154/50 mmHg [facility]: : 1945 Gender: Female Height: 61 in Age: 75 yrs Ethnicity: [place] Weight: 160 lb Accession No. [id number] No. [id number] Reason For Study: SOB BSA: 1.7 m2 History: Dyspnea or SOB,Murmur,Lung Disease,Heart Cath Interpretation Summary LVEF 75 to 80% with mild LV diastolic dysfunction. The right ventricle is normal in size and function. No hemodynamically significant valvular aortic stenosis. Mild aortic regurgitation. There is mild mitral regurgitation. There is Trace to mild tricuspid regurgitation. Right ventricular systolic pressure is elevated at 35- 40mmHg. Trace pulmonic valvular regurgitation. Trivial pericardial effusion. No any prior study available for comparison. Left Ventricle: The left ventricle is normal in size. There is normal left ventricular wall thickness. The left ventricle is hyperdynamic. LVEF 75 to 80% with mild LV diastolic dysfunction. Left ventricular systolic function is normal. The left ventricular wall motion is normal. [facility] PATIENT NAME: DION MACE Bobbi Holley MEDICAL REC #: [id number] [place] [address] ADMIT DATE: DISCHARGE DATE: ATTENDING PHY: Bess Solsi CNP ECHOCARDIOGRAM REPORT Left Atrium/Atrial Septum: The left atrium is borderline dilated. Right Atrium: Right atrial size is normal. Right Ventricle: The right ventricle is normal in size and function. Aortic Valve: The aortic valve is trileaflet. There is mild aortic sclerosis.;. No hemodynamically significant valvular aortic stenosis. Mild aortic regurgitation. Mitral Valve: The mitral valve is grossly normal. There is no mitral valve stenosis. There is mild mitral regurgitation. Tricuspid Valve: The tricuspid valve is not well visualized, but is grossly normal. There is Trace to mild tricuspid regurgitation. Right ventricular systolic pressure is elevated at 35-40mmHg. Pulmonic Valve: Grossly normal pulmonic valve. Trace pulmonic valvular regurgitation. Arteries: The aortic root is normal size. The pulmonary artery is not well visualized, but is probably normal size. Venous: The inferior vena cava is normal in size, with a normal collapsibility index. Pericardium/Pleura: Trivial pericardial effusion. MMode/2D Measurements and Calculations IVSd: 0.94 cm LVIDd: IVS/LVPW: EDV(cubed): IVSs: 1.4 cm 6.2 cm 1.0 236.5 ml LVIDs: FS: 37.7 % ESV(cubed): 3.9 cm EF(Teich): 57.2 ml LVPWd: 66.8 % EF(cubed): 0.90 cm 75.8 % LVPWs: % IVS thick: 1.5 cm 47.6 % % LVPW thick: [facility] PATIENT NAME: DION MACE [address] Bobbi Holley [facility] REC #: [id number] BR[place] [address] ADMIT DATE: DISCHARGE DATE: ATTENDING PHY: Bess Solis 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 ECHOCARDIOGRAM REPORT 70.0 % LV mass(C)d: SV(Teich): MV Ao root diam: 233.3 grams 128.8 ml excursion: 3.1 cm LV mass(C)dI: SI(Teich): 1.2 cm Ao root area: 135.8 grams/m2 75.0 ml/m2 MV E-F 7.5 cm2 LV mass(C)s: SV(cubed): slope: ACS: 1.8 cm 210.8 grams 179.3 ml 9.4 cm/sec LA dimension: LV mass(C)sI: SI(cubed): 3.1 cm 122.7 grams/m2 104.3 ml/m2 LA/Ao: 1.0 EF(MOD-sp4): SI(MOD-sp4): LA ESV Index LVOT diam: 76.7 % (A4C): 2.0 cm 32.6 ml/m2 27.3 ml/m2 Time Measurements Aortic R-R: 0.85 sec Aortic HR: 70.8 BPM Doppler Measurements and Calculations MV E max angel luis: MV max PG: MV P1/2t: Ao V2 max: 90.1 cm/sec 5.8 mmHg 49.5 msec 198.8 cm/sec MV A max angel luis: MV mean PG: MVA(P1/2t): Ao max P.7 cm/sec 2.5 mmHg 4.4 cm2 15.8 mmHg MV E/A: 0.94 MVA(VTI): MV dec time: Ao max PG 2.9 cm2 0.24 sec (full): 5.2 mmHg Ao mean P.3 mmHg Ao mean PG (full): 2.7 mmHg Ao V2 VTI: 47.4 cm RIKKI(I,A): 2.1 cm2 RIKKI(I,D): 2.1 cm2 RIKKI(V,A): 2.5 cm2 RIKKI(V,D): 2.5 cm2 [facility] PATIENT NAME: DION MACE [address] [facility] [address] Holley MEDICAL REC #: [id number] [place] [address] ADMIT DATE: DISCHARGE DATE: ATTENDING PHY: Bess Solis CNP ECHOCARDIOGRAM REPORT LV V1 max: CO(Ao): TR max angel luis: RAP systole: 162.9 cm/sec 25.2 l/min 269.4 cm/sec 10.0 mmHg LV V1 mean: CI(Ao): TR max P.9 cm/sec 14.7 l/min/m2 29.0 mmHg LV V1 VTI: SV(Ao): RVSP(TR): 32.5 cm 356.0 ml 39.0 mmHg SI(Ao): 207.2 ml/m2 CO(LVOT): 6.9 l/min CI(LVOT): 4.0 l/min/m2 SI(LVOT): 57.1 ml/m2 MV P1/2t- Lateral E/E': Medial E/E': pr_phl: 7.8 (more content not included)... Normal [facility] ECHOCARDIOGRAM REPORT Normal [facility] N-TELOPEPTIDEon 02-02-2021 N-TELOPEPTIDE 256 nmol BCE Normal Not Estab. [facility] Comment on above: Performed By: #### L 600.68171, L650.06186 #### [facility] [address] [place] [address] UR CREAT RANDOM 88.7 mg/dL Normal Not Estab. [facility] Comment on above: Performed By: #### L 600.69111, L650.22052 #### [facility] [address] [place] [address] UR N-T/CR RATIO 33 Normal 0-89 [facility] Comment on above: Result Comment: INFC E Result Units: nM BCE/mM Cr Performed By: #### L 600.14268, L650.46151 #### [facility] [address] [place] [address] UR N-TELOP CMT Normal () [facility] Comment on above: Result Comment: The N-telopeptide and Creatinine are used to calculate the N-telo/Creat. Ratio which is referred to as NTx . Suggested guidelines for the clinical use of NTx are as follows: 1. Menopausal Women not on Hormone Replacement Therapy (HRT): Women with a baseline NTx value >38 are at significant risk for a decrease in bone mineral density (BMD) after 1 year compared to women on HRT. The probability of a decline in BMD increases with NTx value as follows: (1): Baseline NTx Probability of Decrease in BMD 18- 38 1.4 p=0.28 38- 51 2.5 p=0.03 51- 67 3.8 p=0.0006 67-188 17.3 p=0.0001 2. Menopausal Women Receiving Antiresorptive Therapy: The probability that treatment is effective after three months is increased when the measured NTx value is or=30% from baseline.[1] 3. Patients with Paget's Disease of Bone: The probability that treatment is effective after one month is increased when the measured NTx value is within the reference range, or NTx has decreased >or=30% from baseline.[2] 1. Broderick CH, Bonny NH, Wyatt GS, et al. Am J Med, 102:29-37,1997. (1):M757, 1996. 2. Bone H, Sivakumar Watkins, et al. J Bone Min Res.11(1):M757,1995 Performed By: #### L 600.60212, L650.87593 #### [facility] [address] [place] [address] UPE RANDOMon 02-02-2021 ALBUMIN,U Normal () [facility] Comment on above: Result Comment: Test not performed. Insufficient specimen to perform or complete analysis. Contacted Madelyn Schneider at your facility 01/30/2021 Performed By: #### L 600.56308, L650.00973 #### [facility] [address] [address] SAIMB-4-TNWA,U Normal () [facility] Comment on above: Result Comment: Test not performed. Insufficient specimen to perform or complete analysis. Contacted Madelyn Schneider at your facility 01/30/2021 Performed By: #### L 600.50539, L650.21608 #### [facility] [address] [address] ZSSUU-0-TEYG,U Normal () [facility] Comment on above: Result Comment: Test not performed. Insufficient specimen to perform or complete analysis. Contacted Madelyn Schneider at your facility 01/30/2021 Performed By: #### L 600.10105, L650.19249 #### [facility] [address] [place] [phone] BETA GLOB,U Normal () [facility] Comment on above: Result Comment: Test not performed. Insufficient specimen to perform or complete analysis. Contacted Madelyn Schneider at your facility 01/30/2021 Performed By: #### L 600.66515, L650.72567 #### [facility] [address] [address] GAMMA GLOB,U Normal () [facility] Comment on above: Result Comment: Test not performed. Insufficient specimen to perform or complete analysis. Contacted Madelyn Schneider at your facility 01/30/2021 Performed By: #### L 600.47479, L650.07606 #### [facility] [address] [address] M-SPIKE,% QNSTST Normal () [facility] Comment on above: Result Comment: Test not performed. Insufficient specimen to perform or complete analysis. Contacted Madelyn Schneider at your facility 01/30/2021 Performed By: #### L 600.02409, L650.91468 #### [facility] [address] [address] NOTE: Normal () [facility] Comment on above: Result Comment: Prot ein electrophoresis scan will follow via computer, mail, or slot shift supervisor delivery. Performed By: #### L 600.06124, L650.68635 #### [facility] [address] [address] PROTEIN,TOTAL 14.8 mg/dL Normal Not Estab. [facility] Comment on above: Performed By: #### L 600.41096, L650.42904 #### [facility] [address] [address] CMPon 01-29-2021 Albumin [Mass/Vol] 3.8 g/dL Normal 3.2-5.0 [facility] Comment on above: Performed By: #### L 550.73543, L500.16017, L500.98740, L500.64699 #### [facility] [place] [address] Albumin/Globulin [Mass ratio] 1.1 {ratio} Normal 0.8-2.0 [facility] Comment on above: Performed By: #### L 550.52047, L500.86508, L500.71748, L500.55077 #### [facility] [address] [place] [address] ALK PHOS 132 U/L High 45-117 [facility] Comment on above: Performed By: #### L 550.65946, L500.84193, L500.38286, L500.79494 #### [facility] [place] [address] ALT [Catalytic activity/Vol] 17 U/L Normal 13-61 [facility] Comment on above: Result Comment: RESU LTS MAY BE FALSELY DEPRESSED AFTER THE ADMINISTRATION OF SULFASALAZINE AND/OR SULFAPYRIDINE. Performed By: #### L 550.29016, L500.83134, L500.99459, L500.13676 #### [facility] [address] [place] [address] Anion gap [Moles/Vol] 3 mmol/L Low 5-16 [facility] Comment on above: Performed By: #### L 550.15440, L500.00371, L500.09952, L500.64798 #### [facility] [address] [place] [address] AST [Catalytic activity/Vol] 14 U/L Normal 8-34 [facility] Comment on above: Result Comment: RESU LTS MAY BE FALSELY DEPRESSED AFTER THE ADMINISTRATION OF SULFASALAZINE AND/OR SULFAPYRIDINE. Performed By: #### L 550.01910, L500.14881, L500.06080, L500.08636 #### [facility] [place] [address] BILI TOTAL < 0.20 Low 0.2-1.0 [facility] Comment on above: Performed By: #### L 550.89324, L500.71093, L500.13615, L500.36030 #### [facility] [address] [place] [address] Calcium [Mass/Vol] 10.0 mg/dL Normal 8.5-10.5 [facility] Comment on above: Result Comment: NOTE NEW NORMAL RANGE DUE TO REAGENT CHANGE Performed By: #### L 550.49228, L500.62356, L500.48714, L500.76460 #### [facility] [address] [place] [address] Chloride [Moles/Vol] 103 mmol/L Normal 98-107 [facility] Comment on above: Performed By: #### L 550.52473, L500.94974, L500.36523, L500.94331 #### [facility] [place] [address] CO2 [Moles/Vol] 33.0 mmol/L High 21-32 [facility] Comment on above: Performed By: #### L 550.90090, L500.09751, L500.48969, L500.27814 #### [facility] [place] [address] Creatinine [Mass/Vol] 0.82 mg/dL Normal 0.510-0.950 [facility] Comment on above: Result Comment: Dot ents receiving either N-Acetylcysteine (NAC) or Metamizole prior to venipuncture, may have falsely depressed results. Performed By: #### L 550.60733, L500.96683, L500.11969, L500.26917 #### [facility] [place] [address] Globulin (S) [Mass/Vol] 3.4 g/dL Normal 2.2-4.2 [facility] Comment on above: Performed By: #### L 550.67858, L500.05196, L500.52205, L500.65114 #### [facility] [address] [place] [address] Glucose [Mass/Vol] 79 mg/dL Normal 70-100 [facility] Comment on above: Result Comment: 70-1 00- Normal Fasting; 100-125 Impaired Fasting; greater than 126 on more than one result- Diabetes. ADA guidelines. Results may be falsely elevated after the administration of Sulfapyridine. Results may be falsely depressed after the administration of Sulfasalazine. Performed By: #### L 550.28946, L500.94414, L500.05879, L500.67193 #### [facility] [place] [address] Potassium [Moles/Vol] 4.1 mmol/L Normal 3.5-5.1 [facility] Comment on above: Performed By: #### L 550.94180, L500.32178, L500.75744, L500.39917 #### [facility] [place] [address] Protein [Mass/Vol] 7.2 g/dL Normal 6.0-8.5 [facility] Comment on above: Performed By: #### L 550.35088, L500.59304, L500.39065, L500.23926 #### [facility] [address] [place] [address] Sodium [Moles/Vol] 138 mmol/L Normal 136-145 [facility] Comment on above: Performed By: #### L 550.73615, L500.94950, L500.45639, L500.66401 #### [facility] [address] [place] [address] Urea nitrogen [Mass/Vol] 11 mg/dL Normal 7-26 [facility] Comment on above: Performed By: #### L 550.67283, L500.61047, L500.68537, L500.97374 #### [facility] [place] [address] Urea nitrogen/Creatinine [Mass ratio] 13 mg/mg Low 15-24 [facility] Comment on above: Performed By: #### L 550.26057, L500.82343, L500.21360, L500.75249 #### [facility] [place] [address] GFR ESTon 01-29-2021 IF AMER Greater than [address] [facility] Comment on above: Performed By: #### L 550.97833, L500.26963, L500.90784, L500.88124 #### [facility] [address] [place] [address] IF non-AFR AMER Greater than [address] [facility] Comment on above: Performed By: #### L 550.64722, L500.96500, L500.31002, L500.40910 #### [facility] [address] [place] [address] PTH INTACTon 01-29-2021 PTH INTACT 159.4 PG/ML High 14-72 [facility] Comment on above: Performed By: #### L 550.52295 #### [facility] [address] [place] [address] TSHon 01-29-2021 TSH 4.801 UIU/ML High 0.358-3.740 [facility] Comment on above: Result Comment: 3rd generation ultra sensitive TSH Performed By: #### L 550.37090, L500.62014, L500.56774, L500.11271 #### [facility] [address] [place], [place] [id number] 01-29-2021 [id number] 16.7 NG/ML Low 30.0-100.0 [facility] Comment on above: Result Comment: Defi ciency Less than 20 ng/mL Insufficiency 20 - Less than 30 ng/mL Sufficiency 30 - 100 ng/mL Performed By: #### L 550.77350, L500.02396, L500.36406, L500.50609 #### [facility] [address] [phone] Large Joint Arthro/Inj: R lovett bacromial bursa [facility] Vital Signs Date Time Vital Sign Value Performing Clinician Promise johnson 09-27-2023 10:30-0500 Blood Pressure Location NIDAL CHOUJAA DO [facility] 09-27-2023 10:30-0500 Blood Pressure Method NIDAL CHOUJAA DO [facility] 09-27-2023 10:30-0500 Diastolic Blood Pressure Non-Invasive 72 1 NIDAL CHOUJAA DO [facility] 09-27-2023 10:30-0500 Heart rate 75 /min NIDAL CHOUJAA DO [facility] 09-27-2023 10:30-0500 Respiratory rate 16 /min NIDAL CHOUJAA DO [facility] 09-27-2023 10:30-0500 Systolic Blood Pressure Non-Invasive 184 1 NIDAL CHOUJAA DO [facility] 09-27-2023 09:30-0500 Blood Pressure Location NIDAL CHOUJAA DO [facility] 09-27-2023 09:30-0500 Blood Pressure Method NIDAL CHOUJAA DO [facility] 09-27-2023 09:30-0500 Diastolic Blood Pressure Non-Invasive 75 1 NIDAL CHOUJAA DO [facility] 09-27-2023 09:30-0500 Heart rate 72 /min NIDAL CHOUJAA DO [facility] 09-27-2023 09:30-0500 Respiratory rate 18 /min NIDAL CHOUJAA DO [facility] 09-27-2023 09:30-0500 Systolic Blood Pressure Non-Invasive 184 1 NIDAL CHOUJAA DO [facility] 09-27-2023 08:31-0500 Blood Pressure Location NIDAL CHOUJAA DO [facility] 09-27-2023 08:31-0500 Blood Pressure Method NIDAL CHOUJAA DO [facility] 09-27-2023 08:31-0500 Diastolic Blood Pressure Non-Invasive 70 1 NIDAL CHOUJAA DO [facility] 09-27-2023 08:31-0500 Heart rate 76 /min NIDAL CHOUJAA DO [facility] 09-27-2023 08:31-0500 Respiratory rate 16 /min NIDAL CHOUJAA DO [facility] 09-27-2023 08:31-0500 Systolic Blood Pressure Non-Invasive 182 1 NIDAL CHOUJAA DO [facility] 09-27-2023 07:40-0500 Body temperature 98.78 [degF] NIDAL CHOUJAA DO [facility] 03-26-2023 09:49-0400 Body temperature 97.39 [degF] Ansley Kaba ZIG ZAG STITCHER.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 Work Phone: [facility] 03-26-2023 09:49-0400 Diastolic blood pressure 64 mm[Hg] Ansley Kaba ZIG ZAG STITCHER.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 Work Phone: [facility] 03-26-2023 09:49-0400 Heart rate 65 /min Ansley Kaba ZIG ZAG STITCHER.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 Work Phone: [facility] 03-26-2023 09:49-0400 Respiratory rate 18 /min Ansley Kaba ZIG ZAG STITCHER.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 Work Phone: [facility] 03-26-2023 09:49-0400 SaO2% (BldA) [Mass fraction] 95 % Ansley Kaba ZIG ZAG STITCHER.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 Work Phone: [facility] 03-26-2023 09:49-0400 Systolic blood pressure 142 mm[Hg] Ansley Kaba ZIG ZAG STITCHER.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 Work Phone: [facility] 02-07-2023 15:07-0400 Diastolic blood pressure 57 mm[Hg] Georgia Vetovitz PA-C Work Phone: [facility] 02-07-2023 15:07-0400 Systolic blood pressure 140 mm[Hg] Georgia Vetovitz PA-C Work Phone: [facility] 01-10-2023 08:59-0500 Body height 153.7 cm Pacc 1 Work Phone: [facility] 01-10-2023 08:59-0500 Body temperature 98.1 [degF] Pacc 1 Work Phone: [facility] 01-10-2023 08:59-0500 Body weight 71.22 kg Pacc 1 Work Phone: [facility] 01-10-2023 08:59-0500 Diastolic blood pressure 70 mm[Hg] Pacc 1 Work Phone: [facility] 01-10-2023 08:59-0500 Heart rate 61 /min Pacc 1 Work Phone: [facility] 01-10-2023 08:59-0500 Respiratory rate 16 /min Pacc 1 Work Phone: [facility] 01-10-2023 08:59-0500 SaO2% (BldA) [Mass fraction] 91 % Pacc 1 Work Phone: [facility] 01-10-2023 08:59-0500 Systolic blood pressure 112 mm[Hg] Pacc 1 Work Phone: [facility] 08-09-2022 10:03-0400 Body height 154.9 cm Carmela Sarina PA-C Work Phone: [facility] 08-09-2022 10:03-0400 Body weight 66.68 kg Carmela Sarina PA-C Work Phone: [facility] 08-09-2022 10:03-0400 Diastolic blood pressure 64 mm[Hg] Carmela Sarina PA-C Work Phone: [facility] 08-09-2022 10:03-0400 Heart rate 68 /min Carmela Sarina PA-C Work Phone: [facility] 08-09-2022 10:03-0400 Respiratory rate 14 /min Carmela Sarina PA-C Work Phone: [facility] 08-09-2022 10:03-0400 SaO2% (BldA) [Mass fraction] 95 % Carmela Sarina PA-C Work Phone: [facility] 08-09-2022 10:03-0400 Systolic blood pressure 126 mm[Hg] Carmela Sarina PA-C Work Phone: [facility] 08-09-2022 09:53-0400 Body height 154.9 cm Respiratory Wstr Work Phone: [facility] 08-09-2022 09:53-0400 Body weight 66.68 kg Respiratory Wstr Work Phone: [facility] 08-09-2022 09:53-0400 Heart rate 68 /min Respiratory Wstr Work Phone: [facility] 08-09-2022 09:53-0400 Respiratory rate 14 /min Respiratory Wstr Work Phone: [facility] 08-09-2022 09:53-0400 SaO2% (BldA) [Mass fraction] 95 % Respiratory Wstr Work Phone: [facility] 01-17-2022 14:12-0500 Diastolic blood pressure 63 mm[Hg] BING MENA MD [facility] 01-17-2022 14:12-0500 Heart rate 56 /min BING MENA MD [facility] 01-17-2022 14:12-0500 Reason For Taking VItal Signs BING MENA MD [facility] 01-17-2022 14:12-0500 Respiratory rate 16 /min BING MENA MD [facility] 01-17-2022 14:12-0500 Systolic blood pressure 148 mm[Hg] BING MENA MD [facility] 01-17-2022 11:43-0500 Body temperature 98.24 [degF] BING MENA MD [facility] 01-17-2022 11:43-0500 Diastolic blood pressure 78 mm[Hg] BING MENA MD [facility] 01-17-2022 11:43-0500 Heart rate 84 /min BING MENA MD [facility] 01-17-2022 11:43-0500 Respiratory rate 18 /min BING MENA MD [facility] 01-17-2022 11:43-0500 Systolic blood pressure 160 mm[Hg] BING MENA MD [facility] 01-09-2022 18:25-0500 Diastolic blood pressure 59 mm[Hg] JESÚS FROMMELT DO [facility] 01-09-2022 18:25-0500 Heart rate 56 /min JESÚS FROMMELT DO [facility] 01-09-2022 18:25-0500 Reason For Taking VItal Signs JESÚS FROMEDWNIAT DO [facility] 01-09-2022 18:25-0500 Respiratory rate 16 /min JESÚS BINGHAMT DO [facility] 01-09-2022 18:25-0500 Systolic blood pressure 154 mm[Hg] JESÚS MCDONOUGHMELT DO [facility] 01-09-2022 16:42-0500 Body temperature 98.42 [degF] JESÚS MCDONOUGHMELT DO [facility] 01-09-2022 16:42-0500 Diastolic blood pressure 75 mm[Hg] JESÚS MCDONOUGHMELT DO [facility] 01-09-2022 16:42-0500 Heart rate 67 /min JESÚS FROMMELT DO [facility] 01-09-2022 16:42-0500 Respiratory rate 20 /min JESÚS MCDONOUGHMELT DO [facility] 01-09-2022 16:42-0500 Systolic blood pressure 164 mm[Hg] JESÚS ALFARO DO [facility] Encounters Encounter Date Encounter Type Care Provider Facility Start: 09-14-2024 End: 09-14-[address] NOBLE WEST DO Facility:[facility] Start: 09-14-2024 End: 09-14-2024 Patient encounter procedure LANEY KUMARI ZIG ZAG STITCHER-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 [facility] Start: 09-11-2024 End: 09-11-[address] NOBLE WEST DO Facility:[facility] Start: 09-11-2024 End: 09-11-2024 Patient encounter procedure LANEY KUMARI ZIG ZAG STITCHER-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 [facility] Start: 09-04-[address] NOBLE WEST DO Fa cility:[facility] Start: 08-03-2024 End: 08-07-2024 ambulatory LAURO MELENDEZ ZIG ZAG STITCHER-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 Facility:[facility] Start: 03-07-2024 End: 03-08-[address] NOBLE WEST DO Facility:[facility] Start: 03-07-2024 End: 03-07-[address] NOBLE WEST DO [facility] Start: 11-30-2023 End: 12-01-[address] NOBLE WEST DO Facility:[facility] Start: 11-30-2023 End: 11-30-[address] NOBLE WEST DO [facility] Start: 09-27-2023 End: 09-27-2023 Emergency department patient visit LANDEN PANIAGUA DO Facility:[facility] Start: 09-27-2023 End: 09-27-2023 Emergency department patient visit LANDEN PANIAGUA DO [facility] Start: 08-02-2023 End: 09-07-[address] NOBLE WEST DO Facility: Start: 08-02-2023 End: 09-07-2023 Physical therapy management DR NOBLE WEST DO [facility] Start: 04-11-2023 End: 04-11-2023 ambulatory CARLOS REEVES Facility:[facility] Start: 04-11-2023 End: 04-11-2023 Patient encounter procedure Carlos Reeves MD Work Phone: Orthopaedics Comment on above: Chronic right should er pain (Primary Dx); Shoulder impingement Start: 04-11-2023 End: 04-11-2023 Subsequent hospital visit by physician [place] [facility] Suhas Major Work Phone: Radiology Comment on above: Chronic right should er pain [M25.511, G89.29] Start: 03-30-2023 Telephone encounter Carlos steward MD Work Phone: Orthopaedics Comment on above: Mri Technician - O ther Start: 03-26-2023 End: 03-26-2023 Patient encounter procedure Ansley Kaba APRN.CNP Work Phone: [facility] [place] Comment on above: Bacterial conjunctiv itis (Primary Dx) Start: 03-07-2023 End: 03-07-2023 ambulatory NOBLE WEST Facility:[facility] Start: 03-07-2023 End: 03-07-2023 Patient encounter procedure Carlos Reeves MD Work Phone: Orthopaedics Comment on above: Shoulder impingement (Primary Dx); Chronic right shoulder pain; Bilateral carpal tunnel syndrome Start: 02-07-2023 End: 02-07-2023 ambulatory GEORGIA RACHELLE Facility:[facility] Start: 02-07-2023 End: 02-07-2023 Patient encounter procedure Georgia Vetovitz PA-C Work Phone: Orthopaedics Comment on above: Bilateral carpal cammie federico syndrome (Primary Dx); De Quervain's tenosynovitis Start: 01-26-2023 End: 01-26-2023 ambulatory CARLOS REEVES Facility:[facility] Start: 01-10-2023 End: 01-11-2023 ambulatory NOBLE TINSLEYR Facility:[facility] Start: 01-10-2023 Encounter for other preprocedural examination NOBLE JENNA [facility] Start: 01-10-2023 End: 01-10-2023 Admission to establishment [facility] Suhas 1 Work Phone: [facility] Start: 01-10-2023 End: 01-10-2023 [facility] 1 Work Phone: Pre Anesthesia Comment on above: Pre-op evaluation (P rimary Dx); Intractable migraine with aura without status migrainosus; Hyperlipidemia, mixed; Benign hypertension; Coronary artery disease involving [place] coronary artery of [place] heart without angina pectoris; RBBB; Chronic obstructive pulmonary disease, unspecified COPD type (HCC); Acquired hypothyroidism; Dislocation of temporomandibular joint, sequela; Anemia, unspecified type; Aortic valve insufficiency, etiology of cardiac valve disease unspecified; Depression, unspecified depression type Start: 01-10-2023 End: 01-10-2023 Preprocedural examination done [facility] 1 Work Phone: Pre Anesthesia Start: 01-04-2023 Telephone encounter Carlos steward MD Work Phone: Orthopaedics Comment on above: Patient Question (Re garding date of procedure) Start: 12-27-2022 End: 12-27-2022 ambulatory NOBLE TINSLEYR Facility:[facility] Start: 12-27-2022 End: 12-27-2022 Subsequent hospital visit by physician [place] [facility] Suhas Mob Work Phone: Radiology Comment on above: Pain [R52] Start: 09-18-2022 Refill Carmela English PA-C Work Phone: Pulmonary Medicine Comment on above: Refill Request Start: 08-28-2022 Refill Bess phelps ZIG ZAG STITCHER.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 Work Phone: [facility] Cardiology Comment on above: Refill Request Start: 08-09-2022 End: 08-09-2022 ambulatory Respiratory Therapist [facility] Work Phone: Pulmonary Medicine Comment on above: Spirometry Start: 08-09-2022 End: 08-09-2022 Patient encounter procedure Respiratory Therapist [facility] Work Phone: [facility] Comment on above: Moderate COPD (chron ic obstructive pulmonary disease) (HCC) (Primary Dx); Former smoker Start: 05-26-2022 Refill Bess phelps ZIG ZAG STITCHER.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 Work Phone: [facility] Cardiology Comment on above: Refill Request; Refi ll Request Start: 05-08-2022 Refill Bess phelps ZIG ZAG STITCHER.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 Work Phone: [facility] Cardiology Comment on above: Refill Request; Refi ll Request Start: 01-17-2022 End: 01-17-2022 Emergency department patient visit BING MENA MD [facility] Start: 01-09-2022 End: 01-09-2022 Emergency department patient visit JESÚS OTILIAOriana DO [facility] Procedures Date Procedure Procedure Detail Performing Clinician Start: 04-11-2023 Radex shoulder compl ete minimum 2 views Carlos Reeves MD Work Phone: Start: 03-07-2023 Arthrocentesis aspir &/inj major jt/bursa w/o us Carlos Reeves MD Work Phone: Start: 01-26-2023 Carpal tunnel syndro me (disorder) DR NOBLE WEST DO Comment on above: bilateral Start: 12-27-2022 Radex wrist complete minimum 3 views Carlos Reeves MD Work Phone: Start: 08-09-2022 Spmtry w/vc expirato ry marisol w/wo mxml vol vntj Carmela Branch PA-C Work Phone: Start: 08-05-2014 Adult depression scr eening assessment Bess Solis ZIG ZAG STITCHER.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 Work Phone: Start: 11-21-2006 Hernia repair JESÚS MILLARD DO Start: 05-05-2006 Colonoscopy Bess barrios ZIG ZAG STITCHER.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 Work Phone: Start: 11-21-2003 Operation on gallbladder JESÚS ALFARO DO Start: 11-21-1973 Hysterectomy JESÚS ERWIN OMMELT DO Start: 11-21-1950 Tonsillectomy JESÚS MILLARD DO Lumpectomy of left breast CH MAGUI BINGHAMT DO Plan of Treatment Date Care Activity Detail Author Start: 11-24-2026 Urine microalbumin profile DTaP,Tdap,Td Vaccine (2 - Td or Tdap) [facility] Start: 01-22-2025 LIPID SCREEN LIPID SCREEN [facility] Start: 07-29-2024 DIABETES SCREEN DIABETES SCREEN [facility] Start: 07-29-2024 Diabetes Screening Diabetes Screening [facility] Start: 01-10-2024 BP CONTROLLED (<130/80) BP CONTROLLED (<130/80) [facility] Start: 08-09-2023 BP CONTROLLED (<130/80) BP CONTROLLED (<130/80) [facility] Start: 07-22-2023 Influenza vaccination Influenza Vaccine (#1) [facility] Start: 11-21-2022 ADVANCE DIRECTIVE DISCUSSION ADVANCE DIRECTIVE DISCUSSION [facility] Start: 11-21-2022 DEPRESSION ASSESSMENT DEPRESSION ASSESSMENT [facility] Start: 07-22-2022 Influenza vaccination INFLUENZA (#1) [facility] Start: 11-21-2021 ADVANCE DIRECTIVE DISCUSSION ADVANCE DIRECTIVE DISCUSSION [facility] Start: 11-21-2021 DEPRESSION ASSESSMENT DEPRESSION ASSESSMENT [facility] Start: 01-22-2021 Hepatitis B surface antibody level LDL CHOLESTEROL [facility] Start: 08-05-2015 Adult depression screening assessment DEPRESSION SCREENING [facility] Start: 05-05-2007 Colonoscopy COLONOSCOPY [facility] Start: 05-05-2007 COLORECTAL CANCER SCREENING COLORECTAL CANCER SCREENING [facility] Start: 2006 RSV Vaccine (1 - 1-dose 60+ series) RSV Vaccine (1 - 1-dose 60+ series) [facility] Start: 1996 SHINGRIX VACCINE (1 of 2) SHINGRIX VACCINE (1 of 2) [facility] Start: 1991 COLOGUARD (FIT-DNA) COLOGUARD (FIT-DNA) [facility] Start: [address] COLONOGRAPHY [facility] Start: 1991 FECAL OCCULT BLOOD FECAL OCCULT BLOOD [facility] Start: 1991 SIGMOIDOSCOPY SIGMOIDOSCOPY [facility] Start: 1976 Zoledronic acid therapy ALPHA-1 ANTITRYPSIN DEFICIENCY SCREENING [facility] Start: 1965 Urine microalbumin profile DTAP,TDAP,TD (1 - Tdap) [facility] Start: 1964 ANNUAL PCP TEAM CHRONIC DISEASE VISIT ANNUAL PCP TEAM CHRONIC DISEASE VISIT [facility] Start: 1964 BP CONTROLLED (<130/80) BP CONTROLLED (<130/80) [facility] Start: 04-25-1947 COVID-19 VACCINE (#1) COVID-19 VACCINE (#1) [facility] SPIROMETRY BASELINE ONLY SPIROME TRY BASELINE ONLY PFT Routine Moderate COPD (chronic obstructive pulmonary disease) (HCC) 08/09/2022 9:55 AM EDT [facility] Work Phone: [facility] Immunizations Immunization Date Immunization Notes Care Provider Fa monae 09-13-2024 Pneumococcal conjuga te PCV20, polysaccharide [id number] conjugate, adjuvant, PF; Translations: [Prevnar 20] LANEY KUMARI APRN-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 [facility] 09-05-2024 influenza, high dose seasonal, preservative-free; Translations: [Fluad PF Prefilled Syringe ] DENAYE HAGI ZIG ZAG STITCHER-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 [facility] 09-16-2023 influenza, high dose seasonal, preservative-free; Translations: [Fluad Quadrivalent PF ] NORMDIMITRIOS WISEMANCLAUDIO DO [facility] 09-13-2022 influenza, high dose seasonal, preservative-free DR NOBLE WEST DO [facility] 09-13-2022 influenza virus vaccine, unspecified formulation Mob Work Phone: [facility] 09-09-2021 influenza virus vaccine, unspecified formulation JESÚS ALFARO DO [facility] 09-09-2021 influenza, high-dose , quadrivalent vaccine (FLUZONE HIGH DOSE QUADRIVALENT) Respiratory Ws Work Phone: [facility] Work Phone: 10-09-2020 pneumococcal conjuga te vaccine, 13 valent JESÚS ALFARO DO [facility] 08-25-2020 influenza, high dose seasonal, preservative-free Bess Solis ZIG ZAG STITCHER.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 Work Phone: [facility] Work Phone: 08-22-2020 influenza (aIIV4) vaccine, age 65+ yr, quadrivalent, PF (FLUAD QUADRIVALENT) Bess Solis ZIG ZAG STITCHER.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 Work Phone: [facility] Work Phone: 08-22-2020 influenza virus vaccine, unspecified formulation JESÚS ALFARO DO [facility] Comment on above: Result Comment: [facility] 10-12-2019 influenza virus vaccine, unspecified formulation JESÚS ALFARO DO [facility] 08-21-2018 influenza virus vaccine, unspecified formulation JESÚS ALFARO DO [facility] 08-10-2017 influenza virus vaccine, unspecified formulation JESÚS ALFARO DO [facility] 11-24-2016 tetanus toxoid, redu jose enrique diphtheria toxoid, and acellular pertussis vaccine, adsorbed [facility] 08-30-2016 pneumococcal conjuga te vaccine, 13 valent [facility]ERG[facility]ON [facility] 08-16-2016 influenza virus vaccine, unspecified formulation JESÚS ALFARO DO [facility] 09-08-2015 influenza virus vaccine, unspecified formulation JESÚS ALFARO DO [facility] 09-08-2015 influenza, high dose seasonal, preservative-free Bess Solis APRN.CNP Work Phone: [facility] Work Phone: 09-04-2013 influenza virus vaccine, unspecified formulation JESÚS ALFARO DO [facility] 02-11-2013 pneumococcal polysaccharide vaccine, 23 valent JESÚS ALFARO DO [facility] Payers Date Payer Category Payer Private Health Insurance [id number] 2023 Private Health Insurance [id number] 2023 Unknown [id number] 2019 Medicare HUMANA MEDICARE HUMANA GOLD PLUS [id number] 2019-Present [phone] [address] [place] [id number] HMO [id number] 2019 Medicare HUMANA MEDICARE HUMANA GOLD PLUS [id number] 2019-Present [phone] [id number] [place] [id number] HMO [id number] 2019 Private Health Insurance [id number] 1945 Unknown [id number] 27 1946 Unknown [id number] 27 1946 Unknown [id number] 27 1946 Unknown [id number] 27 1946 Unknown [id number] 27 1946 Unknown [id number] 27 1946 Unknown [id number] 27 1946 Unknown [id number] 27 Social History Date Type Detail Facility Start: 08-20-2019 End: 05-21-2024 Ex-smoker (finding) [facility] Comment on above: No Tobacco/Smoke Exp osure Sex Assigned At Female [facility] Start: 1963 End: 03-10-2004 History of tobacco use Current smoker [facility] Work Phone: Start: 1963 End: 03-10-2004 History of tobacco use Cigarette Smoker [facility] Work Phone: Start: 06-12-2014 End: 12-07-2022 Cigarettes smoked current (pack per day) - Reported 1.5 [facility] Start: 06-12-2014 End: 08-09-2022 Tobacco use and exposure Smokeless tobacco non-user [facility] Work Phone: Start: 10-01-2021 End: 12-27-2022 Alcohol intake Current non-drinker of alcohol (finding) [facility] Start: 06-12-2014 History SDOH Alcohol Comment quit 20 years ago [facility] Start: 1945 Sex Assigned At Not on file [facility] Start: 08-09-2022 Tobacco Comment No smoking in childhood home. Spouse quit smoking 2001. [facility] Start: 07-30-2022 End: 08-09-2022 Exposure to SARS-CoV-2 (event) Not sure [facility] Start: 12-07-2022 End: 04-11-2023 Tobacco use panel [facility] Adult Depression Screening Assessment 0 [facility] Medical Equipment Procedure Code Equipment Code Equipment Origin al Text Equipment Identifier Dates See Instructions , lancets. check sugar once daily E16.2. #30, # 30 EA, 0 Refill(s), Pharmacy: [id number], 154, cm, 08/17/23 13:33:00 EDT, Height, 66.8, kg, 08/17/23 13:33:00 EDT, Dosing Weight Start: 09-16-2023 See Instructions , glucose test strips. #30. E16.2. check blood sugar once daily, # 30 EA, 0 Refill(s), Pharmacy: [id number], 154, cm, 08/17/23 13:33:00 EDT, Height, 66.8, kg, 08/17/23 13:33:00 EDT, Dosing Weight Start: 09-16-2023 See Instructions , lancets. check sugar once daily E16.2. #30, # 30 EA, 0 Refill(s), Pharmacy: [id number], 154, cm, 08/17/23 13:33:00 EDT, Height, 66.8, kg, 08/17/23 13:33:00 EDT, Dosing Weight Start: 09-16-2023 See Instructions , glucose test strips. #30. E16.2. check blood sugar once daily, # 30 EA, 0 Refill(s), Pharmacy: [facility] [id number], 154, cm, 08/17/23 13:33:00 EDT, Height, 66.8, kg, 08/17/23 13:33:00 EDT, Dosing Weight Start: 09-16-2023 See Instructions , lancets. check sugar once daily E16.2. #30, # 30 EA, 0 Refill(s), Pharmacy: [facility] [id number], 154, cm, 08/17/23 13:33:00 EDT, Height, 66.8, kg, 08/17/23 13:33:00 EDT, Dosing Weight Start: 09-16-2023 See Instructions , glucose test strips. #30. E16.2. check blood sugar once daily, # 30 EA, 0 Refill(s), Pharmacy: [facility] [id number], 154, cm, 08/17/23 13:33:00 EDT, Height, 66.8, kg, 08/17/23 13:33:00 EDT, Dosing Weight Start: 09-16-2023 See Instructions , lancets. check sugar once daily E16.2. #30, # 30 EA, 0 Refill(s), Pharmacy: [facility] [id number], 154, cm, 08/17/23 13:33:00 EDT, Height, 66.8, kg, 08/17/23 13:33:00 EDT, Dosing Weight Start: 09-16-2023 See Instructions , glucose test strips. #30. E16.2. check blood sugar once daily, # 30 EA, 0 Refill(s), Pharmacy: [facility] [id number], 154, cm, 08/17/23 13:33:00 EDT, Height, 66.8, kg, 08/17/23 13:33:00 EDT, Dosing Weight Start: 09-16-2023 See Instructions , lancets. check sugar once daily E16.2. #30, # 30 EA, 0 Refill(s), Pharmacy: [id number], 154, cm, 08/17/23 13:33:00 EDT, Height, 66.8, kg, 08/17/23 13:33:00 EDT, Dosing Weight Start: 09-16-2023 See Instructions , glucose test strips. #30. E16.2. check blood sugar once daily, # 30 EA, 0 Refill(s), Pharmacy: [id number], 154, cm, 08/17/23 13:33:00 EDT, Height, 66.8, kg, 08/17/23 13:33:00 EDT, Dosing Weight Start: 09-16-2023 Functional Status Date Assessment Result Facility 09-27-2023 Functional Status Independent [facility] 09-27-2023 Functional Status ID band on, Allergy Band on, Call device within reach, Bed in low position, Wheels locked, Upper/Half-Length side-rails up, Visitor at bedside, Safety level maintained [facility] Mental Status Date Assessment Result Facility 09-27-2023 Mental Status Orientation Oriented x 4 [facility] 09-27-2023 Mental Status [facility] Clinical Notes 04-27-2016 to 09-14-2024 Nunu Mehta RT(R) - 04/11/2023 8:50 AM EDAlvarado Reeves MD - 04/11/2023 8:34 AM EDTTelephone Encounter - Yesy Andre Ma - 03/30/2023 2:49 PM EDTPatient InstructionsPatient Instructions Note Date & Type Note Facility 09-14-2024 Note ORIGINAL EXAMINATION: COMPLETE ABDOMINAL [id number] 9:59 am ULTRASOUND ABDOMEN COMPLETE, TECHNIQUE: This report is based on interpretation of permanently recorded ultrasound images. COMPARISON: CT 01/17/2022 HISTORY: ORDERING SYSTEM PROVIDED HISTORY: Reason for Exam: UPPER ABD PAIN, FINDINGS: The liver is essentially normal in size and echogenicity. No focal abnormality is seen.. There is no intrahepatic bile duct dilatation. The common duct is 12 mm at the lashonda hepatis. It seems dilated through its entire length. This is similar to the earlier CT. No stone is seen in the visualized portions. The adjacent main portal vein shows normal antegrade flow direction. The gallbladder is not seen surgically absent.. The pancreas as visualized shows no focal mass. Mild dilatation of the pancreatic duct is considered normal for age. Some portions are obscured by bowel gas.. The spleen is normal in size and echogenicity. There are echogenic splenic granulomas of no clinical significance. No ascites. Limited survey images of the kidneys show normal cortical thickness and echogenicity. No pelvocaliectasis. . The aorta and IVC as visualized are normal in caliber. Small portions are obscured by bowel gas artifacts.. The patient has a palpable lump in the periumbilical region. Scanning of this abnormality shows an ovoid well-circumscribed mass in the deep subcutaneous space that is 36 x 11 x 25 mm. The mass is isoechoic to the adjacent subcutaneous fat. No significant blood flow. There is no defect in the underlying abdominal wall without and with Valsalva to indicate hernia. No corresponding mass is evident on the earlier CT. IMPRESSION: No acute abnormality is seen. Palpable lump in the periumbilical region does not seem to be a periumbilical hernia. The sonographic appearance would be compatible with a fat containing mass such as lipoma. Ultrasound however cannot be histologically specific and cannot predict biological behavior of soft tissue lesions. The need for follow-up evaluation or intervention should be predicated on clinical criteria including pain and interval increase in size. Interpreted by: Fredi Hoffmann MD Preliminary Report By: Fredi Hoffmann MD Electronically signed By Fredi Hoffmann MD Dictated Date: 09/14/2024 2:25:06 PM Prelim Date: 09/14/2024 2:29:19 PM Sign Date: 09/14/2024 2:29:19 PM [facility]ing [facility] 03-07-2024 Note ORIGINAL EXAMINATION: MRI OF THE RIGHT SHOULDER WITHOUT CONTRAST 03/07/2024 2:26 pm TECHNIQUE: Multiplanar multisequence MRI of the right shoulder was performed without the administration of intravenous contrast. COMPARISON: None. HISTORY: ORDERING SYSTEM PROVIDED HISTORY: Reason for Exam: chronic right shoulder pain with decreased ROM. FINDINGS: Acromioclavicular spurring noted. Lateral downsloping of the acromion. Small volume of split in the subacromial subdeltoid bursa. Supraspinatus and infraspinatus tendinosis seen. There is low-grade interstitial and articular surface tearing of the distal supraspinatus tendon. Infraspinatus tendinosis. There is subscapularis tendinosis and interstitial tearing. There appears to be some calcification of the distal subscapularis tendon. The teres minor tendon is intact. The long head biceps tendon is degenerated. Significant glenohumeral cartilage loss noted. There is labral degeneration/tearing there is likely a SLAP tear. The glenohumeral ligament complexes appear intact but are degenerated. Subchondral cysts seen at the greater tuberosity. No asymmetric muscle atrophy. IMPRESSION: 1. 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 2. Subacromial subdeltoid bursitis. 3. Supraspinatus and infraspinatus tendinosis. There is low-grade interstitial and articular surface tearing of the supraspinatus tendon. 4. Subscapularis tendinosis and interstitial tearing. There appears to be calcific tendinosis of the distal subscapularis tendon. 5. Significant glenohumeral cartilage loss. There is labral degeneration/tearing, likely with a SLAP tear. Interpreted by: Mark Kwong MD Preliminary Report By: Mark Kwong MD Electronically signed By Mark Kwong MD Dictated Date: 03/07/2024 4:11:33 PM Prelim Date: 03/07/2024 4:15:55 PM Sign Date: 03/07/2024 4:15:55 PM Ordering Provider: [facility] 09-29-2023 Note . MICRO - Microbiology PROCEDURE: Urine Culture [*1] SOURCE: Urine BODY SITE: COLLECTED DATE/TIME: 09/27/2023 10:14 EST RECEIVED DATE/TIME: 09/27/2023 14:08 EST START DATE/TIME: 09/27/2023 14:08 EST FREE TEXT SOURCE: FINAL REPORTS Final Report [] Verified Date/Time/Personnel: 09/29/2023 07:36 EST <10,000 cfu/ml. No Significant growth. Sensitivity not indicated. PRELIMINARY REPORTS Preliminary Report [] Verified Date/Time/Personnel: 09/28/2023 09:17 EST No growth to date Performing Locations *1: This test was performed at: [facility], [address] [place] [address], [id number] , [facility] ([place]) 09-27-2023 Hospital Discharge instructions Patient Education 09/27/2023 10:56:19 Viral Syndrome (Adult) Viral Syndrome (Adult) A viral illness may cause a number of symptoms such as fever. Other symptoms depend on the part of the body that the virus affects. If it settles in your nose, throat, and lungs, it may cause cough, sore throat, congestion, runny nose, headache, earache and other ear symptoms, or shortness of breath. If it settles in your stomach and intestinal tract, it may cause nausea, vomiting, cramping, and diarrhea. Sometimes it causes generalized symptoms like aching all over, feeling tired, loss of energy, or loss of appetite. A viral illness usually lasts anywhere from several days to several weeks, but sometimes it lasts longer. In some cases, a more serious infection can look like a viral syndrome in the first few days of the illness. You may need another exam and additional tests to know the difference. Watch for the warning signs listed below for when to seek medical advice. Home care Follow these guidelines for taking care of yourself at home: If symptoms are severe, rest at home for the first 2 to 3 days. Stay away from cigarette smoke - both your smoke and the smoke from others. You may use [id number] acetaminophen or ibuprofen for fever, muscle aching, and headache, unless another medicine was prescribed for this. If you have chronic liver or kidney disease or ever had a stomach ulcer or gastrointestinal bleeding, talk with your healthcare provider before using these medicines. No one who is younger than 18 and ill with a fever should take aspirin. It may cause severe disease or . Your appetite may be poor, so a light diet is fine. Avoid dehydration by drinking 8 to 12, 8-ounce glasses of fluids each day. This may include water; orange juice; lemonade; apple, grape, and cranberry juice; clear fruit drinks; electrolyte replacement and sports drinks; and decaffeinated teas and coffee. If you have been diagnosed with a kidney disease, ask your healthcare provider how much and what types of fluids you should drink to prevent dehydration. If you have kidney disease, drinking too much fluid can cause it build up in the your body and be dangerous to your health. Ezjg-xsp-usfhqmo remedies won't shorten the length of the illness but may be helpful for symptoms such as cough, sore throat, nasal and sinus congestion, or diarrhea. Don't use decongestants if you have high blood pressure. Follow-up care Follow up with your healthcare provider if you do not improve over the next week. Call 911 Call 911 if any of the following occur: Convulsion Feeling weak, dizzy, or like you are going to faint Chest pain, or more than mild shortness of breath When to seek medical advice Call your healthcare provider right away if any of these occur: Cough with lots of colored sputum (mucus) or blood in your sputum Chest pain, shortness of breath, wheezing, or trouble breathing Severe headache; face, neck, or ear pain Severe, constant pain in the lower right side of your belly (abdominal) Continued vomiting (can t keep liquids down) Frequent diarrhea (more than 5 times a day); blood (red or black color) or mucus in diarrhea Feeling weak, dizzy, or like you are going to faint Extreme thirst Fever of 100.4 F (38 C) or higher, or as directed by your healthcare provider [phone] [employer]. [address] [place] [address]. All rights reserved. This information is not intended as a substitute for professional medical care. Always follow your healthcare professional's instructions. Follow Up Care 09/27/2023 07:35:08 With:NOBLE WEST DO Address: [address] [facility] [place] [address]- [phone] When:2-4 days [facility] 09-27-2023 Note Discharge Instructions Thank you for allowing [facility] to assist you with your healthcare needs. The following is important discharge information regarding your hospital visit. Diagnosis from Today's Visit Headache Headache Viral syndrome What to Do Next Instructions from Your Care Team I recommend following up with your primary care doctor. If you have worsening symptoms do not hesitate to return. No qualifying data available. Post Acute Orders No qualifying data available. You Need to Schedule the Following Appointments Follow Up with NOBLE WEST DO When Within 2-4 days Where: [address] [facility] [place] [address]- [phone] Allergies Cymbalta (Nausea, Headache, Dizziness) Pyridium (Itching, vomiting) Zoloft (Nausea, Headache, Dizziness) penicillins (Swelling, Difficulty swallowing) sulfa drugs (Itching, Hives) Medications Please ask your primary doctor or pharmacist before taking any other medication not listed, including over the counter drugs, herbal medications, vitamins and or supplements as they may interact with your home medications. What How Much When Why Instructions Last Dose Unchanged acyclovir (acyclovir 200 mg oral capsule) 1 cap by mouth Two (2) times a day Herpes simplex type 2 infection Duration: 30 Days after acute treatment for prevention Unchanged albuterol (Ventolin HFA MDI (90 mcg/ inh) inhalation aerosol) 1-2 puffs by inhalation Every 6 hours as needed for as needed for cough/wheeze Unchanged ascorbic acid (Vitamin C 250 mg oral tablet) 1 tab(s) by mouth Once a day with a meal Unchanged aspirin/ butalbital/ caffeine/ codeine (Ascomp with Codeine oral capsule) 1 cap by mouth Every 8 hours Chronic tension headache Duration: 30 Days fill Unchanged cinnamon by mouth Unchanged citalopram (citalopram 40 mg oral tablet) 1 tab(s) by mouth Once a day Unchanged cyclobenzaprine (cyclobenzaprine 10 mg oral tablet) 1 tab(s) by mouth Daily at bedtime NEEDED FOR MUSCLE SPASM PAIN Unchanged DME (DME MISCellaneous) See instructions lancets. check sugar once daily E16.2. #30 Unchanged DME (DME MISCellaneous) See instructions glucose test strips. #30. E16.2. check blood sugar once daily Unchanged DME (DME MISCellaneous) See instructions Hypoglycemia glucometer. #1. E16.2. check blood sugar once daily Unchanged DME (DME MISCellaneous) See instructions alcohol pads. E16.2. clear finger prior to checking sugar once daily. #30 Unchanged esomeprazole (esomeprazole 40 mg oral delayed release capsule) 1 cap by mouth Once a day Take 1 capsule everyday before meals on an empty stomach Unchanged famotidine (Pepcid 20 mg oral tablet) 1 tab(s) by mouth Two (2) times a day Poison sarika Unchanged ferrous sulfate (ferrous sulfate 325 mg (65 mg elemental iron) oral tablet) 1 tab(s) by mouth Twice daily with meals Take with food. Unchanged fluticasone/ umeclidinium/ vilanterol (Trelegy Ellipta 100 mcg-62.5 mcg-25 mcg/ inh inhalation powder) 1 puff(s) by inhalation Once a day Duration: 90 Days at the same time every day. Following administration, rinse mouth with water after use (do not swallow). Unchanged hydroCHLOROthiazide (hydroCHLOROthiazide 12.5 mg oral tablet) 1 tab(s) by mouth Once a day Unchanged levothyroxine (levothyroxine 150 mcg (0.15 mg) oral tablet) 1 tab(s) by mouth Once a day Unchanged LORazepam (LORazepam 0.5 mg oral tablet) 1 tab(s) by mouth Once a day Panic state as acute reaction to stress Depression, major, recurrent, moderate Duration: 30 Days fill Unchanged multivitamin with minerals (Calcium, Magnesium and Zinc oral tablet) 1 tab(s) by mouth Once a day with vitamin d also Unchanged zolpidem (zolpidem 5 mg oral tablet) 1 tab(s) by mouth Daily at bedtime as needed for as needed for insomnia Controlled insomnia Duration: 30 Days fill Please take this list to your next doctor s visit. Bring all medications you take, including over the counter medications, herbals and other supplements with you to your doctor s visit. Patients and families are reminded to discard old lists and to update any records with all medication providers or retail pharmacies. Education Materials Viral Syndrome (Adult) A viral illness may cause a number of symptoms such as fever. Other symptoms depend on the part of the body that the virus affects. If it settles in your nose, throat, and lungs, it may cause cough, sore throat, congestion, runny nose, headache, earache and other ear symptoms, or shortness of breath. If it settles in your stomach and intestinal tract, it may cause nausea, vomiting, cramping, and diarrhea. Sometimes it causes generalized symptoms like aching all over, feeling tired, loss of energy, or loss of appetite. A viral illness usually lasts anywhere from several days to several weeks, but sometimes it lasts longer. In some cases, a more serious infection can look like a viral syndrome in the first few days of the illness. You may need another exam and additional tests to know the difference. Watch for the warning signs listed below for when to seek medical advice. Home care Follow these guidelines for taking care of yourself at home: If symptoms are severe, rest at home for the first 2 to 3 days. Stay away from cigarette smoke - both your smoke and the smoke from others. You may use qjom-tok-rbeciyz acetaminophen or ibuprofen for fever, muscle aching, and headache, unless another medicine was prescribed for this. If you have chronic liver or kidney disease or ever had a stomach ulcer or gastrointestinal bleeding, talk with your healthcare provider before using these medicines. No one who is younger than 18 and ill with a fever should take aspirin. It may cause severe disease or . Your appetite may be poor, so a light diet is fine. Avoid dehydration by drinking 8 to 12, 8-ounce glasses of fluids each day. This may include water; orange juice; lemonade; apple, grape, and cranberry juice; clear fruit drinks; electrolyte replacement and sports drinks; and decaffeinated teas and coffee. If you have been diagnosed with a kidney disease, ask your healthcare provider how much and what types of fluids you should drink to prevent dehydration. If you have kidney disease, drinking too much fluid can cause it build up in the your body and be dangerous to your health. Xedz-xcn-rqfwdkw remedies won't shorten the length of the illness but may be helpful for symptoms such as cough, sore throat, nasal and sinus congestion, or diarrhea. Don't use decongestants if you have high blood pressure. Follow-up care Follow up with your healthcare provider if you do not improve over the next week. Call 911 Call 911 if any of the following occur: Convulsion Feeling weak, dizzy, or like you are going to faint Chest pain, or more than mild shortness of breath When to seek medical advice Call your healthcare provider right away if any of these occur: Cough with lots of colored sputum (mucus) or blood in your sputum Chest pain, shortness of breath, wheezing, or trouble breathing Severe headache; face, neck, or ear pain Severe, constant pain in the lower right side of your belly (abdominal) Continued vomiting (can t keep liquids down) Frequent diarrhea (more than 5 times a day); blood (red or black color) or mucus in diarrhea Feeling weak, dizzy, or like you are going to faint Extreme thirst Fever of 100.4 F (38 C) or higher, or as directed by your healthcare provider [phone] [employer]. [address] [place] [address]. All rights reserved. This information is not intended as a substitute for professional medical care. Always follow your healthcare professional's instructions. Additional Information VACCINATE! IT SAVES LIVES! Members of the community who have not yet received the COVID-19 vaccine and would like to receive it can visit one of [facility] vaccine clinics. There are many vaccine clinic locations within the [facility]. For locations and available times, please visit [email or web address].[place].g [email or web address] It is important to note that some COVID mobile vaccine clinics are held outdoors and may be canceled in rainy or stormy conditions. To learn more about pediatric vaccinations (ages 5-11), we invite you to visit the [facility] webpage. [email or web address]/pa [email or web address]-Xhrer-Fljuonybtdl-Freque pcnu-Ymkzt-Xzbkeawmz.html To learn more about the COVID-19 vaccine, we invite you to visit the CDC website for a list of frequently asked questions. https://www.cdc.gov/coronavirus/2 019-ncov/vaccines/faq.html [facility] Patient Portal Access Instructions: Stay connected with your healthcare team and access your personal medical information anytime with the [facility] Patient Portal. If you would like a full copy of your medical records please contact the [facility] Medical Records Department Tuesday through Tuesday between 8a.m. and 4:30p.m. Please follow the directions below to access the portal: 1.Access the email account you provided upon registration to the [facility].2.Look for an invitation email from [facility].3.Open the email and access the invitation link: Accept Invitation to [employer]4.Fill in the required hammond to create your account. Sign into [email or web address] with your username and password that you created in the above steps to stay up to date. You can then view a summary of results, a summary of your visits, and the ability to download your summaries to your computer or send the information securely to a physician. Remember that your healthcare information is confidential, so carefully consider who you will allow to register on the [facility] Patient Portal for access to your information. You can also access the [employer] [facility] Patient Portal on the [employer]. Simply click on Health Records under Health Data and then click on the [employer] logo. HOW TO SAFELY DISPOSE OF PRESCRIPTION MEDICATIONS Please use one of the following methods to safely dispose of your unused medications. 1.Use a drug disposal kit: the drug disposal pouch allows you to safely discard your old and unused drugs. Ask your nurse to give you one when you are discharged.2.Visit a local take-back location: Many local pharmacies and police departments have programs that collect old and unwanted prescription drugs. Call your local pharmacy or go to http://IMshopping.Atmospheir/3V1Iv5f to find one close to you.3.Make use of household items: Use cat litter or old coffee grounds to dispose medications if other options are not available. Mix your drugs with these household products, seal them in an airtight container and throw it into the garbage. Call [facility]: [phone] to be sure your drugs can be disposed of in this way. Some medicines may require a different approach.4.Never flush your medications down the toilet. IF YOU HAVE BEEN PRESCRIBED AN OPIOIDS FOR PAIN If you have been prescribed an opioid (such as hydrocodone, oxycodone or morphine), it is critical to understand the possible side effects and risks of opioid pain medications. Even when taken as directed, opioids can have several side effects including: Tolerance, meaning you might need to take more of a medication for the same pain relief. Nausea, vomiting and/or constipation. Sleepiness, dizziness, dry mouth, confusion, depression or itching. Physical dependence, meaning you have withdrawal symptoms when a medication is stopped ? this can develop within a few days. KNOW YOUR RESPONSIBILITIES It is important to know exactly how much and how often to take the opioid pain medications you are prescribed. Never take opioids in higher amounts or more often than prescribed. Do not combine opioids with alcohol or other drugs that cause drowsiness, such as benzodiazepines, also known as benzos, including diazepam and alprazolam, muscle relaxants or sleep aids. Never sell or share prescription opioids. This is illegal. Store opioids in a secure place and out of reach of others (including children, family, friends and visitors). The last page(s) of this document has been signed and retained as a CHART COPY Signatures Patient Education Materials Viral Syndrome (Adult) Medication Leaflets My discharge plan and instructions have been reviewed and explained to me and I,DION MACE understand my current condition and have read and understand these discharge instructions. I have received a written copy of the plan/instructions. If I have questions, I am aware that I should contact my doctor. 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 FINDINGS: The ventricles and sulci are mildly enlarged. There are no abnormal intra or extra-axial fluid collections. There is mild irregular decreased attenuation in the cerebral white matter; bedolla-white matter differentiation is maintained. The calvaria and the bones of the base of the skull are intact. IMPRESSION: Mild volume loss and small vessel ischemic disease. No significant interval change. Interpreted by: Moses Huerta MD Preliminary Report By: Moses Huerta MD Electronically signed By Moses Huerta MD Dictated Date: 09/27/2023 9:16:15 AM Prelim Date: 09/27/2023 9:19:50 AM Sign Date: 09/27/2023 9:19:50 AM [facility] 09-27-2023 Note ORIGINAL EXAMINATION: ONE XRAY VIEW OF THE CHEST09/27/2023 8:50 am COMPARISON: July 04, 2021 HISTORY: ORDERING SYSTEM PROVIDED HISTORY: Reason for Exam: fever FINDINGS: Cardiac silhouette is stable. There is aortic atherosclerosis. No pneumothorax, overt pulmonary edema, or focal consolidation. No large pleural effusion. No acute osseous abnormality. IMPRESSION: No acute radiographic findings. Interpreted by: Chele Carson DO Preliminary Report By: Chele Carson DO Electronically signed By Chele Carson DO Dictated Date: 09/27/2023 8:55:46 AM Prelim Date: 09/27/2023 8:56:52 AM Sign Date: 09/27/2023 8:56:52 AM [facility] 09-27-2023 Note Appears similar to E KG compared from July 05, 2021. EKG interpretation is noted and agreed to in [employer]. The interpretation of this patient's EKG contributed directly to the care and management of this patient. Right bundle branch block Baseline wander in lead(s) V2 Electronic Signature: LANDEN PANIAGUA DO 09/27/2023 08:16:00 [facility] 04-11-2023 Note HNO ID: [id number] Author: Nunu Mehta, RT(R) Service: ? Author Type: Technologist Type: Progress Notes Filed: 04/11/2023 9:48 AM Note Text: Radiology Service Progress Note PATIENT NAME: Dion Mace DATE OF SERVICE: April 11, 2023 TIME: 9:47 AM PATIENT IDENTITY VERIFICATION COMPLETED USING TWO (2) IDENTIFIERS: Name and Date of confirmed by patient verbally. FALL SCREENING: Has the patient had 2 falls in the last year or 1 fall with injury or currently using an Ambulatory Assistive Device (Walker, Cane, Wheelchair, Crutches, etc.)? No PATIENT GENDER DATA: Female. status: : No status: NO. PATIENT RELEVANT IMPLANT DATA REVIEWED: Not Applicable RADIOLOGY DEPARTMENT: General X-ray: Exam(s) Completed: Upper Extremity X-Ray(s): Shoulder, AP / TRUE AP / AXILLARY right PT IN ORTHO ROOM 3 PERIPHERAL IV DATA: Not applicable SIGNED BY: Nunu Mehta RT(R) April 11, 2023 9:47 AM [facility] 04-11-2023 Note HNO ID: [id number] Author: Carlos Reeves MD Service: ? Author Type: Physician Type: Progress Notes Filed: 05/09/2023 7:49 AM Note Text: Carlos Reeves MD Department of Orthopaedics Orthopaedics [address] [facility] [address] Dept: [phone] Dept April 11, 2023 CHIEF COMPLAINT: Follow Up and Pain of the Right Shoulder and 4 weeks post visit right shoulder with injection given HPI Patient here for follow up right shoulder pain. Patient states injection did not help. Her pain is deep into her shoulder pain. Patient states when her pain is sharp her shoulder will crack and helps ease the pain. Taking codeine for prevention of migraines does not help her shoulder pain. Patient states when she sleeps on her right side her arm has to be completely straight. Patient states she still have a few shingles on her buttock. ASSESSMENT: M25.511, G89.29 Chronic right shoulder pain (primary encounter diagnosis) M25.819 Shoulder impingement PLAN: Prednisone and anti-inflammatory. Ms. Dion Mace was advised as to contrast therapies and/or to take analgesics/anti-inflammatories as needed and all contraindications were reviewed. OBJECTIVE: Ms. Dion Mace is a pleasant 77 year old in no apparent distress. Gen:There were no vitals taken for this visit. nl development, non obese, no deformities ENT: Normocephalic, normal hearing, moist mucosa CV: Pulses:Radial= 2+ and symmetric, capillary refill < 2 secs, no peripheral edema/varicosities Skin: no rash, bruising or lesions. Good turgor. Psych: cooperative and appropriate, alert and oriented x 3, good mood and affect. Musculoskeletal: Stable exam from prior visit. Imaging: IMPRESSION: No acute osseous abnormality Debeader: DRE Transcribe Date/Time: Apr 11 2023 1:20P Dictated by : JERMAINE YAN MD This examination was interpreted and the report reviewed and electronically signed by: JERMAINE YAN MD on Apr 11 2023 1:21PM EST Results-Findings * * *Final Report* * * DATE OF EXAM: Apr 11 2023 9:46AM [id number] [id number] - XR SHLDR >/=3V AP/CARIN AP/OTHR RT / PROCEDURE REASON: multiple diagnoses * * * * Physician Interpretation * * * * EXAMINATION: XR SHLDR >/=3V AP/CARIN AP/OTHR RT CLINICAL HISTORY: Right shoulder pain Technique: XR SHLDR >/=3V AP/CARIN AP/OTHR RT -- RIGHT with 3 views on 3 images Comparison: X-ray right shoulder 07/03/2018 RESULT: No acute fracture. Joint spaces are maintained. Supporting Subjective Information Below: Past Surgical History: PAST SURGICAL HISTORY Procedure Laterality Date ADENOIDECTOMY PRIMARY AGE 13/> APPENDECTOMY BREAST BX NEEDLE CORE LEFT COLONOSCOPY EGD HEART CATHETERIZATION 2011 [facility] HIATAL HERNIA REPAIR HX MRI SHOULDER WO right shoulder REIMPLANTATION OF KIDNEY right SALPINGO-OOPHORECTOMY COMPL/PRTL UNI/BI SPX TONSILLECTOMY PRIMARY/SECONDARY Tonsillectomy TOTAL ABDOMINAL HYSTERECT W/WO RMVL TUBE OVARY 1970 Medications: Current Outpatient Medications Medication Sig es-rh-rj9-hls-utz-ovuh-lut-adama (OCUVITE ADULT 50 PLUS) 250 mg (90 mg-160 mg) cap Take by mouth once daily. ascorbic acid, vitamin C, (VITAMIN C) 250 mg tablet Take 250 mg by mouth. budesonide-formoterol (SYMBICORT) 160-4.5 mcg/actuation inhaler Symbicort 160 mcg-4.5 mcg/actuation HFA aerosol inhaler INHALE 2 PUFFS BY MOUTH TWICE A DAY famotidine (PEPCID) 20 mg tablet tiotropium (SPIRIVA) 18 mcg inhalation capsule Spiriva with HandiHaler 18 mcg and inhalation capsules INHALE 1 CAPSULE INSTRUCTED ONCE DAILY. zolpidem (AMBIEN) 5 mg tablet zolpidem 5 mg tablet TAKE 1 TABLET BY MOUTH AT BEDTIME NEEDED FOR INSOMNIA codeine/butalbital/ASA/caffein (FIORINAL-CODEINE #3 ORAL) Take by mouth. TRELEGY ELLIPTA 100-62.5-25 mcg inhalation powder INHALE 1 PUFF INSTRUCTED ONCE DAILY. hydroCHLOROthiazide (HYDRODIURIL, ESIDRIX) 12.5 mg tablet Take 1 tablet by mouth once daily folic acid 1 mg tablet Take 1 tablet by mouth once daily. cholecalciferol, Vitamin D3, (VITAMIN D3) 1,250 mcg (50,000 unit) cap capsule Take 50,000 Units by mouth one time a week. levothyroxine (SYNTHROID) 150 mcg tablet Take 175 mcg by mouth once daily. calcium citrate/vitamin D3 (CALCIUM CITRATE + D ORAL) Take 1 tablet by mouth once daily. MAGNESIUM ORAL Take 1 tablet by mouth once daily. Ferrous Sulfate 27 mg iron tab Take 27 mg by mouth three times daily. (Patient taking differently: Take 27 mg by mouth once daily.) ipratropium-albuterol (DUONEB) 0.5 mg-3 mg(2.5 mg base)/3 mL nebu Inhale 3 mL as instructed every 6 hours as needed (wheezing/shortness of breath). Melatonin 5 mg cap Take 1 capsule by mouth daily at bedtime. albuterol (PROVENTIL) 2.5 mg /3 mL (0.083 %) nebulizer solution INHALE CONTENTS OF 1 VIAL NEBULIZED EVERY 8 HOURS esomeprazole (NEXIUM) 40 mg capsule Take 40 mg by mouth DAILY (6 AM). citalopram (CELEXA) 40 (more content not included)... [facility] 04-11-2023 History of Present illness Narrative Radiology Service Progress Note PATIENT NAME: Dion Mace DATE OF SERVICE: April 11, 2023 TIME: 9:47 AM PATIENT IDENTITY VERIFICATION COMPLETED USING TWO (2) IDENTIFIERS: Name and Date of confirmed by patient verbally. FALL SCREENING: Has the patient had 2 falls in the last year or 1 fall with injury or currently using an Ambulatory Assistive Device (Walker, Cane, Wheelchair, Crutches, etc.)? No PATIENT GENDER DATA: Female. status: : No status: NO. PATIENT RELEVANT IMPLANT DATA REVIEWED: Not Applicable RADIOLOGY DEPARTMENT: General X-ray: Exam(s) Completed: Upper Extremity X-Ray(s): Shoulder, AP / TRUE AP / AXILLARY right PT IN ORTHO ROOM 3 PERIPHERAL IV DATA: Not applicable SIGNED BY: RT Mauri(R) April 11, 2023 9:47 AM documented in this encounter [facility] 04-11-2023 History of Present illness Narrative Carlos Reeves MD Department of Orthopaedics Orthopaedics [address] [facility] [address] Dept: [phone] Dept April 11, 2023 CHIEF COMPLAINT: Follow Up and Pain of the Right Shoulder and 4 weeks post visit right shoulder with injection given HPI Patient here for follow up right shoulder pain. Patient states injection did not help. Her pain is deep into her shoulder pain. Patient states when her pain is sharp her shoulder will crack and helps ease the pain. Taking codeine for prevention of migraines does not help her shoulder pain. Patient states when she sleeps on her right side her arm has to be completely straight. Patient states she still have a few shingles on her buttock. ASSESSMENT: M25.511, G89.29 Chronic right shoulder pain (primary encounter diagnosis) M25.819 Shoulder impingement PLAN: Prednisone and anti-inflammatory. Ms. Dion Mace was advised as to contrast therapies and/or to take analgesics/anti-inflammatories as needed and all contraindications were reviewed. OBJECTIVE: Ms. Dion Mace is a pleasant 77 year old in no apparent distress. Gen:There were no vitals taken for this visit. nl development, non obese, no deformities ENT: Normocephalic, normal hearing, moist mucosa CV: Pulses:Radial= 2+ and symmetric, capillary refill < 2 secs, no peripheral edema/varicosities Skin: no rash, bruising or lesions. Good turgor. Psych: cooperative and appropriate, alert and oriented x 3, good mood and affect. Musculoskeletal: Stable exam from prior visit. Imaging: IMPRESSION: No acute osseous abnormality Debeader: DRE Transcribe Date/Time: Apr 11 2023 1:20P Dictated by : JERMAINE YAN MD This examination was interpreted and the report reviewed and electronically signed by: JERMAINE YAN MD on Apr 11 2023 1:21PM EST Results-Findings * * *Final Report* * * DATE OF EXAM: Apr 11 2023 9:46AM [id number] - XR SHLDR >/=3V AP/CARIN AP/OTHR RT / PROCEDURE REASON: multiple diagnoses * * * * Physician Interpretation * * * * EXAMINATION: XR SHLDR >/=3V AP/CARIN AP/OTHR RT CLINICAL HISTORY: Right shoulder pain Technique: XR SHLDR >/=3V AP/CARIN AP/OTHR RT -- RIGHT with 3 views on 3 images Comparison: X-ray right shoulder 07/03/2018 RESULT: No acute fracture. Joint spaces are maintained. Supporting Subjective Information Below: Past Surgical History: PAST SURGICAL HISTORY Procedure Laterality Date ADENOIDECTOMY PRIMARY AGE 13/> APPENDECTOMY BREAST BX NEEDLE CORE LEFT COLONOSCOPY EGD HEART CATHETERIZATION 2011 [facility] HIATAL HERNIA REPAIR HX MRI SHOULDER WO right shoulder REIMPLANTATION OF KIDNEY right SALPINGO-OOPHORECTOMY COMPL/PRTL UNI/BI SPX TONSILLECTOMY PRIMARY/SECONDARY <AGE 13 Tonsillectomy TOTAL ABDOMINAL HYSTERECT W/WO RMVL TUBE OVARY 1970 Medications: Current Outpatient Medications Medication Sig [id number]-lut-adama (OCUVITE ADULT 50 PLUS) 250 mg (90 mg-160 mg) cap Take by mouth once daily. ascorbic acid, vitamin C, (VITAMIN C) 250 mg tablet Take 250 mg by mouth. budesonide-formoterol (SYMBICORT) 160-4.5 mcg/actuation inhaler Symbicort 160 mcg-4.5 mcg/actuation HFA aerosol inhaler INHALE 2 PUFFS BY MOUTH TWICE A DAY famotidine (PEPCID) 20 mg tablet tiotropium (SPIRIVA) 18 mcg inhalation capsule Spiriva with HandiHaler 18 mcg and inhalation capsules INHALE 1 CAPSULE INSTRUCTED ONCE DAILY. zolpidem (AMBIEN) 5 mg tablet zolpidem 5 mg tablet TAKE 1 TABLET BY MOUTH AT BEDTIME NEEDED FOR INSOMNIA codeine/butalbital/ASA/caffein (FIORINAL-CODEINE #3 ORAL) Take by mouth. TRELEGY ELLIPTA 100-62.5-25 mcg inhalation powder INHALE 1 PUFF INSTRUCTED ONCE DAILY. hydroCHLOROthiazide (HYDRODIURIL, ESIDRIX) 12.5 mg tablet Take 1 tablet by mouth once daily folic acid 1 mg tablet Take 1 tablet by mouth once daily. cholecalciferol, Vitamin D3, (VITAMIN D3) 1,250 mcg (50,000 unit) cap capsule Take 50,000 Units by mouth one time a week. levothyroxine (SYNTHROID) 150 mcg tablet Take 175 mcg by mouth once daily. calcium citrate/vitamin D3 (CALCIUM CITRATE + D ORAL) Take 1 tablet by mouth once daily. MAGNESIUM ORAL Take 1 tablet by mouth once daily. Ferrous Sulfate 27 mg iron tab Take 27 mg by mouth three times daily. (Patient taking differently: Take 27 mg by mouth once daily.) ipratropium-albuterol (DUONEB) 0.5 mg-3 mg(2.5 mg base)/3 mL nebu Inhale 3 mL as instructed every 6 hours as needed (wheezing/shortness of breath). Melatonin 5 mg cap Take 1 capsule by mouth daily at bedtime. albuterol (PROVENTIL) 2.5 mg /3 mL (0.083 %) nebulizer solution INHALE CONTENTS OF 1 VIAL NEBULIZED EVERY 8 HOURS esomeprazole (NEXIUM) 40 mg capsule Take 40 mg by mouth DAILY (6 AM). citalopram (CELEXA) 40 mg tablet Take 1 tablet by mouth once daily. cyclobenzaprine (FLEXERIL) 10 mg tablet Take 1 tablet by mouth twice daily as needed. lisinopril (ZESTRIL) 10 mg tablet Take 10 mg by mouth. (Patient not taking: Reported on 04/11/2023) No current facility-administered medications for this visit. Allergies: Penicillins, Pyridium [Phenazopyridine Hcl], Sulfa (Sulfonamide Antibiotics), Zoloft [Sertraline], and Zonisamide ROS: General (negative for fatigue, malaise, weight loss/gain) HEENT (negative for headache, earache, recent vision changes, sinus pain, sore throat) Respiratory (no recent shortness of breath, hemoptysis) CV (negative for chest tightness, palpitations) Musculoskeletal (see HPI) Psych (no depression, anxiety) Carlos Reeves MD documented in this encounter [facility] 03-30-2023 Miscellaneous Notes X-ray order will be placed, if needed, when charts are prepared for that visit date. Pedro from appointment center called. Patient trying to schedule appointment for right should pain. Scheduled appointment for April 11, 2023. Was last seen 03/07/2023 and received injection. Patient states she needs X-ray for next visit but no order. Please review and advise. Fay Espinoza LPN documented in this encounter [facility] 03-26-2023 Instructions Ansley Kaba APRN.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 - 03/26/2023 9:59 AM EDT CONJUNCTIVITIS ([place] [facility]) BASIC INFORMATION DESCRIPTION: An inflammation of the eyelids' underside and white part of the eye. It is more common in children. FREQUENT SIGNS AND SYMPTOMS: The following symptoms may affect one or both eyes: -Clear, green or yellow discharge from the eye. -After sleeping, crusts on lashes that cause eyelids to stick together. -Eye pain. -Swollen eyelids. -Sensitivity to bright light. -Redness and gritty feeling in the eye. -Intense itching (allergic conjunctivitis only). PREVENTIVE MEASURES: -Wash hands frequently with soap and warm water. -Avoid exposure to eye irritants. Newborns in hospital deliveries are routinely given antibiotic eye drops. -Do not share eyeliners, and discard mascara after 4-6 months. TREATMENT: GENERAL MEASURES: -Treatment of conjunctivitis varies with the cause. -Wash hands often with antiseptic soap, and use paper towels to dry. Don't touch eyes. Gently wipe the discharge from the eye using disposable tissues. -Infections are frequently spread by contaminated fingers, towels, handkerchiefs or wash clothes that have touched the infected eye. -Use warm-water soaks or cold water to reduce discomfort. -Don't use eye makeup. -If the infection does not improve in 2 or 3 days, it may be caused by an insensitive bacteria, virus or allergy. At this point, an mail carriers supervisor may need to culture the cause or the conjunctivitis. -Do not wear contact lenses until inflammation is cleared. ACTIVITY: Resume your normal activities as soon as symptoms improve. Contact physician if: -The infection does not improve in 48 hours, despite treatment. -Fever occurs. -Pain increase. -Vision is affected. REPORT: -The infection does not imporve in 48 hours, despite treatment. -Fever occurs -Pain increase -Vision is affected. documented in this encounter [facility] 03-26-2023 History of Present illness Narrative Dion Mace is a 77 year old female who presents with Eye Problem (Left eye redness, pain, watery x 3 days) Patient presents for chief complaint of left eye redness, yellow drainage that started 3 days ago. States that this morning she woke up and the eye was crusted shut. Denies any change in vision. Denies eye pain. PAST MEDICAL HISTORY Diagnosis Date Anemia Benign hypertension Breast lump CAD (coronary artery disease) COPD (chronic obstructive pulmonary disease) (HCC) Diverticulitis H1N1 influenza 2011 hospitalized Heart murmur Hiatal hernia History of cardiac cath 09/21/2012 luminal irregularity 10-20% in the proximal & distal LAD luminal irregularities proximal ramus normal circ normal RCA normal L ventricular hemodynamics normal R heart pressures History of echocardiogram 04/27/2021 EF 75-80%, mild AR, mild MR, trace-mild TR, trace LA History of stress test 03/13/2009 normal lexiscan stress tecjmetium sestambi myocardial perfusion study hyperkinetic ventricle with supernormal EF 76% History of stress test 07/06/2021 overall technically difficult study motion noted on review of rotating raw images TID ratio is 0.93 EF 70% no regional wall motion abnormalities no clear evidence of fixed or reversible defects History of tobacco abuse Hypothyroidism IBS (irritable bowel syndrome) Lyme disease Osteoporosis RBBB Rheumatic fever TMJ (dislocation of temporomandibular joint) ACTIVE PROBLEM LIST Migraine Herpes Simplex Osteoporosis Hypothyroidism Copd (Chronic Obstructive Pulmonary Disease) (Hcc) Anemia Thrombocytosis Ibs (Irritable Bowel Syndrome) Shoulder Capsulitis Lyme Disease Insomnia Hyperlipidemia, Mixed Breast Lump Diverticulitis H1n1 Influenza Heart Murmur Hiatal Hernia History of Cardiac Cath History of Echocardiogram History of Stress Test Benign Hypertension Rheumatic Fever Serum Iron Raised TMJ (Dislocation of Temporomandibular Joint) History of Tobacco Abuse Cad (Coronary Artery Disease) Rbbb Chronic Fatigue Folic Acid Deficiency Aortic Valve Insufficiency Depression Current Outpatient Medications Medication Sig Dispense Refill ascorbic acid, vitamin C, (VITAMIN C) 250 mg tablet Take 250 mg by mouth. budesonide-formoterol (SYMBICORT) 160-4.5 mcg/actuation inhaler Symbicort 160 mcg-4.5 mcg/actuation HFA aerosol inhaler INHALE 2 PUFFS BY MOUTH TWICE A DAY famotidine (PEPCID) 20 mg tablet lisinopril (ZESTRIL) 10 mg tablet Take 10 mg by mouth. tiotropium (SPIRIVA) 18 mcg inhalation capsule Spiriva with HandiHaler 18 mcg and inhalation capsules INHALE 1 CAPSULE INSTRUCTED ONCE DAILY. zolpidem (AMBIEN) 5 mg tablet zolpidem 5 mg tablet TAKE 1 TABLET BY MOUTH AT BEDTIME NEEDED FOR INSOMNIA codeine/butalbital/ASA/caffein (FIORINAL-CODEINE #3 ORAL) Take by mouth. TRELEGY ELLIPTA 100-62.5-25 mcg inhalation powder INHALE 1 PUFF INSTRUCTED ONCE DAILY. 1 Each 11 hydroCHLOROthiazide (HYDRODIURIL, ESIDRIX) 12.5 mg tablet Take 1 tablet by mouth once daily 90 tablet 1 folic acid 1 mg tablet Take 1 tablet by mouth once daily. 100 tablet 0 cholecalciferol, Vitamin D3, (VITAMIN D3) 1,250 mcg (50,000 unit) cap capsule Take 50,000 Units by mouth one time a week. levothyroxine (SYNTHROID) 150 mcg tablet Take 175 mcg by mouth once daily. calcium citrate/vitamin D3 (CALCIUM CITRATE + D ORAL) Take 1 tablet by mouth once daily. MAGNESIUM ORAL Take 1 tablet by mouth once daily. Ferrous Sulfate 27 mg iron tab Take 27 mg by mouth three times daily. 100 tablet 2 ipratropium-albuterol (DUONEB) 0.5 mg-3 mg(2.5 mg base)/3 mL nebu Inhale 3 mL as instructed every 6 hours as needed (wheezing/shortness of breath). 120 Vial 3 Melatonin 5 mg cap Take 1 capsule by mouth daily at bedtime. albuterol (PROVENTIL) 2.5 mg /3 mL (0.083 %) nebulizer solution INHALE CONTENTS OF 1 VIAL NEBULIZED EVERY 8 HOURS 300 mL 0 esomeprazole (NEXIUM) 40 mg capsule Take 40 mg by mouth DAILY (6 AM). citalopram (CELEXA) 40 mg tablet Take 1 tablet by mouth once daily. 90 tablet 3 cyclobenzaprine (FLEXERIL) 10 mg tablet Take 1 tablet by mouth twice daily as needed. 20 tablet 2 tobramycin (TOBREX) 0.3 % ophthalmic solution Use 1-2 Drops in both eyes every 4 hours for 10 days. 5 mL 0 No current facility-administered medications for this visit. Social History Tobacco Use Smoking status: Former Packs/day: 1.50 Years: 40.00 Pack years: 60.00 Types: Cigarettes Start date: 1964 Quit date: 03/10/2004 Years since quittin.0 Smokeless tobacco: Never Tobacco comments: No smoking in childhood home. Spouse quit smoking 2001. Vaping Use Vaping Use: Never used Substance Use Topics Alcohol use: No Comment: Quit 1993. Drug use: No Alcohol Use: No (Quit 1993. ) Tobacco Use: 1.5 packs/day, for 40 years. Quit 03/10/2004. Types: Cigarettes FAMILY HISTORY Problem Relation Age of Onset Cancer Mother 1978 Cancer Father lung problems? mesothioloma Lung Cancer Sister Lymphoma Sister Heart Sister Colon Cancer Brother age 56, 1998 Heart Brother Heart Son Heart Son Review of Systems Constitutional: Negative for chills and fever. Eyes: Positive for discharge and redness. Negative for blurred vision, double vision, photophobia and pain. All other systems reviewed and are negative. BP 142/64 Pulse 65 Temp 97.4 Resp 18 SpO2 95% Physical Exam Vitals and nursing note reviewed. Constitutional: General: She is not in acute distress. Appearance: Normal appearance. She is not ill-appearing or toxic-appearing. HENT: Nose: Congestion present. Eyes: General: Lids are normal. Vision grossly intact. Gaze aligned appropriately. Right eye: No foreign body or discharge. Left eye: Discharge present.No foreign body or hordeolum. Extraocular Movements: Extraocular movements intact. Left eye: Normal extraocular motion. Conjunctiva/sclera: Left eye: Left conjunctiva is injected. Pupils: Pupils are equal, round, and reactive to light. Pulmonary: Effort: Pulmonary effort is normal. Musculoskeletal: Cervical back: Neck supple. Skin: General: Skin is warm and dry. Capillary Refill: Capillary refill takes less than 2 seconds. Neurological: General: No focal deficit present. Mental Status: She is alert and oriented to person, place, and time. ASSESSMENT/PLAN: 1. Bacterial conjunctivitis - ICD9: 372.39, 041.9, ICD10: H10.9 - see medication orders - course and contagiousness issues discussed, including hand washing. - Instructed to call/ER if high fever, development of periorbital redness or swelling, eye pain, visual changes, concerns or if symptoms persist. - TOBRAMYCIN 0.3 % EYE DROPS Ansley Kaba documented in this encounter [facility] 03-07-2023 Note HNO ID: [id number] Author: Carlos Reeves MD Service: ? Author Type: Physician Type: Progress Notes Filed: 03/27/2023 10:16 AM Note Text: Carlos Reeves MD Department of Orthopaedics Orthopaedics [address] [facility] [address] Dept: [phone] Dept March 07, 2023 CHIEF COMPLAINT: Post Op of the Left Wrist, Post Op of the Right Wrist, and 5 weeks 5 days post op Bilateral CTR (and 1st dorsal compartment release). HPI Patient denies any pain today. States she is currently being treated for shingles. ASSESSMENT: M25.819 Shoulder impingement (primary encounter diagnosis) M25.511, G89.29 Chronic right shoulder pain G56.03 Bilateral carpal tunnel syndrome SUMMARY/PLAN: Doing great after surgery. She is describing classic impingment symptoms of the right shoulder bothering her more than her surgical hand(s). Ill give her a cortisone injection today. Exam: Healed incisions. Positive neer and hopkins strength intact. Large Joint Arthro/Inj: R subacromial bursa Informed Consent Consent Obtained: Verbal [place] Protocol A moment to CARE was completed. SIGN IN Sign in communication not applicable due to emergent procedure. Personnel directly involved with the procedure wore the appropriate PPE. Special Equipment: N/A Patient/Surrogate Stated/Verified: Patient name, Date of , Relevant allergies and Intended procedure TIME OUT Intended patient and procedure match the source document(s). Consent documented and matches the intended procedure. Relevant labs, photos, and/or imaging studies have been reviewed. Correct side/site marked and visible. Medications required for procedure verified. No fire risk assessment and interventions applicable. No implant(s) inserted. 03/07/2023 9:37 AM The procedure site was prepped in the usual sterile fashion. Site: R subacromial bursa Medications: 6 mg betamethasone acetate-betamethasone sodium phosphate 6 mg/mL Anesthetics: 4 mL lidocaine (PF) 10 mg/mL (1 %) Outcome: Tolerated well, no immediate complications Post-injection instructions were reviewed with the patient and the patient voiced understanding of these instructions. SIGN OUT All instruments, equipment, possible retained foreign bodies accounted for. Supporting Information Below: Medications: Current Outpatient Medications Medication Sig acyclovir (ZOVIRAX) 800 mg tablet TAKE 1 TABLET BY MOUTH FIVE TIMES DAILY FOR 7 DAYS codeine/butalbital/ASA/caffein (FIORINAL-CODEINE #3 ORAL) Take by mouth. TRELEGY ELLIPTA 100-62.5-25 mcg inhalation powder INHALE 1 PUFF INSTRUCTED ONCE DAILY. hydroCHLOROthiazide (HYDRODIURIL, ESIDRIX) 12.5 mg tablet Take 1 tablet by mouth once daily folic acid 1 mg tablet Take 1 tablet by mouth once daily. cholecalciferol, Vitamin D3, (VITAMIN D3) 1,250 mcg (50,000 unit) cap capsule Take 50,000 Units by mouth one time a week. levothyroxine (SYNTHROID) 150 mcg tablet Take 175 mcg by mouth once daily. calcium citrate/vitamin D3 (CALCIUM CITRATE + D ORAL) Take 1 tablet by mouth once daily. MAGNESIUM ORAL Take 1 tablet by mouth once daily. Ferrous Sulfate 27 mg iron tab Take 27 mg by mouth three times daily. ipratropium-albuterol (DUONEB) 0.5 mg-3 mg(2.5 mg base)/3 mL nebu Inhale 3 mL as instructed every 6 hours as needed (wheezing/shortness of breath). Melatonin 5 mg cap Take 1 capsule by mouth daily at bedtime. albuterol (PROVENTIL) 2.5 mg /3 mL (0.083 %) nebulizer solution INHALE CONTENTS OF 1 VIAL NEBULIZED EVERY 8 HOURS esomeprazole (NEXIUM) 40 mg capsule Take 40 mg by mouth DAILY (6 AM). Nebulizers 1 Each as needed. citalopram (CELEXA) 40 mg tablet Take 1 tablet by mouth once daily. albuterol HFA (PROAIR HFA) 90 mcg/actuation inhaler Inhale 2 Puffs as instructed twice daily as needed. cyclobenzaprine (FLEXERIL) 10 mg tablet Take 1 tablet by mouth twice daily as needed. Cholecalciferol, Vitamin D3, 5,000 unit tab Take 5,000 Units by mouth once daily. No current facility-administered medications for this visit. Allergies: Penicillins, Pyridium [Phenazopyridine Hcl], Sulfa (Sulfonamide Antibiotics), Zoloft [Sertraline], and Zonisamide Carlos Reeves MD [facility] 03-07-2023 History of Present illness Narrative Associated Order(s): Large Joint Arthro/Inj: R subacromial bursa Post-Procedure Diagnose(s): Shoulder impingement; Chronic right shoulder pain Carlos Reeves MD Department of Orthopaedics Orthopaedics [address] [place] [id number] Dept: [phone] Dept March 07, 2023 CHIEF COMPLAINT: Post Op of the Left Wrist, Post Op of the Right Wrist, and 5 weeks 5 days post op Bilateral CTR (and 1st dorsal compartment release). HPI Patient denies any pain today. States she is currently being treated for shingles. ASSESSMENT: M25.819 Shoulder impingement (primary encounter diagnosis) M25.511, G89.29 Chronic right shoulder pain G56.03 Bilateral carpal tunnel syndrome SUMMARY/PLAN: Doing great after surgery. She is describing classic impingment symptoms of the right shoulder bothering her more than her surgical hand(s). Ill give her a cortisone injection today. Exam: Healed incisions. Positive neer and hopkins strength intact. Large Joint Arthro/Inj: R subacromial bursa Informed Consent Consent Obtained: Verbal [place] Protocol A moment to CARE was completed. SIGN IN Sign in communication not applicable due to emergent procedure. Personnel directly involved with the procedure wore the appropriate PPE. Special Equipment: N/A Patient/Surrogate Stated/Verified: Patient name, Date of , Relevant allergies and Intended procedure TIME OUT Intended patient and procedure match the source document(s). Consent documented and matches the intended procedure. Relevant labs, photos, and/or imaging studies have been reviewed. Correct side/site marked and visible. Medications required for procedure verified. No fire risk assessment and interventions applicable. No implant(s) inserted. 03/07/2023 9:37 AM The procedure site was prepped in the usual sterile fashion. Site: R subacromial bursa Medications: 6 mg betamethasone acetate-betamethasone sodium phosphate 6 mg/mL Anesthetics: 4 mL lidocaine (PF) 10 mg/mL (1 %) Outcome: Tolerated well, no immediate complications Post-injection instructions were reviewed with the patient and the patient voiced understanding of these instructions. SIGN OUT All instruments, equipment, possible retained foreign bodies accounted for. Supporting Information Below: Medications: Current Outpatient Medications Medication Sig acyclovir (ZOVIRAX) 800 mg tablet TAKE 1 TABLET BY MOUTH FIVE TIMES DAILY FOR 7 DAYS codeine/butalbital/ASA/caffein (FIORINAL-CODEINE #3 ORAL) Take by mouth. TRELEGY ELLIPTA 100-62.5-25 mcg inhalation powder INHALE 1 PUFF INSTRUCTED ONCE DAILY. hydroCHLOROthiazide (HYDRODIURIL, ESIDRIX) 12.5 mg tablet Take 1 tablet by mouth once daily folic acid 1 mg tablet Take 1 tablet by mouth once daily. cholecalciferol, Vitamin D3, (VITAMIN D3) 1,250 mcg (50,000 unit) cap capsule Take 50,000 Units by mouth one time a week. levothyroxine (SYNTHROID) 150 mcg tablet Take 175 mcg by mouth once daily. calcium citrate/vitamin D3 (CALCIUM CITRATE + D ORAL) Take 1 tablet by mouth once daily. MAGNESIUM ORAL Take 1 tablet by mouth once daily. Ferrous Sulfate 27 mg iron tab Take 27 mg by mouth three times daily. ipratropium-albuterol (DUONEB) 0.5 mg-3 mg(2.5 mg base)/3 mL nebu Inhale 3 mL as instructed every 6 hours as needed (wheezing/shortness of breath). Melatonin 5 mg cap Take 1 capsule by mouth daily at bedtime. albuterol (PROVENTIL) 2.5 mg /3 mL (0.083 %) nebulizer solution INHALE CONTENTS OF 1 VIAL NEBULIZED EVERY 8 HOURS esomeprazole (NEXIUM) 40 mg capsule Take 40 mg by mouth DAILY (6 AM). Nebulizers 1 Each as needed. citalopram (CELEXA) 40 mg tablet Take 1 tablet by mouth once daily. albuterol HFA (PROAIR HFA) 90 mcg/actuation inhaler Inhale 2 Puffs as instructed twice daily as needed. cyclobenzaprine (FLEXERIL) 10 mg tablet Take 1 tablet by mouth twice daily as needed. Cholecalciferol, Vitamin D3, 5,000 unit tab Take 5,000 Units by mouth once daily. No current facility-administered medications for this visit. Allergies: Penicillins, Pyridium [Phenazopyridine Hcl], Sulfa (Sulfonamide Antibiotics), Zoloft [Sertraline], and Zonisamide Carlos Reeves MD documented in this encounter [facility] 02-07-2023 Note HNO ID: [id number] Author: Georgia Bush PA-C Service: ? Author Type: Physician Bag Inspector Type: Progress Notes Filed: 02/07/2023 3:45 PM Note Text: Georgia Bush PA-C Department of Orthopaedics Orthopaedics [address] [facility] [address] Dept: [phone] Dept February 07, 2023 CHIEF COMPLAINT: Established Patient, Post Op, and Pain of the Left Wrist and Established Patient, Post Op, and Pain of the Right Wrist. ASSESSMENT: G56.03 Bilateral carpal tunnel syndrome (primary encounter diagnosis) M65.4 De Quervain's tenosynovitis SUMMARY/PLAN: Patient presents 1 week and 5 days status post bilateral carpal tunnel release and left wrist first dorsal compartment release. She is doing well, having some 3 out of 10 aching especially in the left wrist. We discussed proper hand washing, no soaking of the operative hand. No heavy lifting, pushing or pulling with the operative hand, encourage gentle motion. We discussed scar massage. Follow up as planned. Exam: Incision sites are well approximated without erythema or drainage, there is mild but appropriate edema as well as some ecchymosis along the radial aspect of the left wrist. Patient is able to form a full composite fist and extend all digits, there is some subjective numbness in the radial 3 digits bilaterally. Imaging: Deferred today. Ms. Dion Mace was advised as to contrast therapies and/or to take analgesics/anti-inflammatories as needed and all contraindications were reviewed. Supporting Information Below: Medications: Current Outpatient Medications Medication Sig codeine/butalbital/ASA/caffein (FIORINAL-CODEINE #3 ORAL) Take by mouth. TRELEGY ELLIPTA 100-62.5-25 mcg inhalation powder INHALE 1 PUFF INSTRUCTED ONCE DAILY. hydroCHLOROthiazide (HYDRODIURIL, ESIDRIX) 12.5 mg tablet Take 1 tablet by mouth once daily folic acid 1 mg tablet Take 1 tablet by mouth once daily. cholecalciferol, Vitamin D3, (VITAMIN D3) 1,250 mcg (50,000 unit) cap capsule Take 50,000 Units by mouth one time a week. levothyroxine (SYNTHROID) 150 mcg tablet Take 175 mcg by mouth once daily. calcium citrate/vitamin D3 (CALCIUM CITRATE + D ORAL) Take 1 tablet by mouth once daily. MAGNESIUM ORAL Take 1 tablet by mouth once daily. Ferrous Sulfate 27 mg iron tab Take 27 mg by mouth three times daily. ipratropium-albuterol (DUONEB) 0.5 mg-3 mg(2.5 mg base)/3 mL nebu Inhale 3 mL as instructed every 6 hours as needed (wheezing/shortness of breath). Melatonin 5 mg cap Take 1 capsule by mouth daily at bedtime. albuterol (PROVENTIL) 2.5 mg /3 mL (0.083 %) nebulizer solution INHALE CONTENTS OF 1 VIAL NEBULIZED EVERY 8 HOURS esomeprazole (NEXIUM) 40 mg capsule Take 40 mg by mouth DAILY (6 AM). Nebulizers 1 Each as needed. citalopram (CELEXA) 40 mg tablet Take 1 tablet by mouth once daily. albuterol HFA (PROAIR HFA) 90 mcg/actuation inhaler Inhale 2 Puffs as instructed twice daily as needed. cyclobenzaprine (FLEXERIL) 10 mg tablet Take 1 tablet by mouth twice daily as needed. Cholecalciferol, Vitamin D3, 5,000 unit tab Take 1 tablet by mouth once daily. (Patient not taking: Reported on 12/27/2022) No current facility-administered medications for this visit. Allergies: Penicillins, Pyridium [Phenazopyridine Hcl], Sulfa (Sulfonamide Antibiotics), Zoloft [Sertraline], and Zonisamide This note was partially generated using VMTurbo voice recognition system, and there may be some incorrect words, spellings, and punctuation that were not noted in checking the note before saving. Georgia Bush PA-C [facility] 02-07-2023 Note HNO ID: [id number] Author: Génesis Paz LPN Service: ? Author Type: LICENSED NURSE Type: Progress Notes Filed: 02/07/2023 3:45 PM Note Text: AMB ROOMING INTAKE FLOWSHEET DATA Pain Pain Level: 3 Pain Location: Wrist-Left Description: Aching Duration Amount of Time: 12 Duration Units: Days Frequency: Intermittent Intervention/Comfort measure: Reposition, Relaxation Patient presents with: Left Wrist - Established Patient, Post Op, Pain Right Wrist - Established Patient, Post Op, Pain Patient present to office 1 week 5 days post op Bilateral CTR and 1st dorsal compartments release and injection in wrist. Génesis Paz LPN [facility] 02-07-2023 History of Present illness Narrative Georgia Bush PA-C Department of Orthopaedics Orthopaedics [address] [facility] [address] Dept: [phone] Dept February 07, 2023 CHIEF COMPLAINT: Established Patient, Post Op, and Pain of the Left Wrist and Established Patient, Post Op, and Pain of the Right Wrist. ASSESSMENT: G56.03 Bilateral carpal tunnel syndrome (primary encounter diagnosis) M65.4 De Quervain's tenosynovitis SUMMARY/PLAN: Patient presents 1 week and 5 days status post bilateral carpal tunnel release and left wrist first dorsal compartment release. She is doing well, having some 3 out of 10 aching especially in the left wrist. We discussed proper hand washing, no soaking of the operative hand. No heavy lifting, pushing or pulling with the operative hand, encourage gentle motion. We discussed scar massage. Follow up as planned. Exam: Incision sites are well approximated without erythema or drainage, there is mild but appropriate edema as well as some ecchymosis along the radial aspect of the left wrist. Patient is able to form a full composite fist and extend all digits, there is some subjective numbness in the radial 3 digits bilaterally. Imaging: Deferred today. Ms. Dion Mace was advised as to contrast therapies and/or to take analgesics/anti-inflammatories as needed and all contraindications were reviewed. Supporting Information Below: Medications: Current Outpatient Medications Medication Sig codeine/butalbital/ASA/caffein (FIORINAL-CODEINE #3 ORAL) Take by mouth. TRELEGY ELLIPTA 100-62.5-25 mcg inhalation powder INHALE 1 PUFF INSTRUCTED ONCE DAILY. hydroCHLOROthiazide (HYDRODIURIL, ESIDRIX) 12.5 mg tablet Take 1 tablet by mouth once daily folic acid 1 mg tablet Take 1 tablet by mouth once daily. cholecalciferol, Vitamin D3, (VITAMIN D3) 1,250 mcg (50,000 unit) cap capsule Take 50,000 Units by mouth one time a week. levothyroxine (SYNTHROID) 150 mcg tablet Take 175 mcg by mouth once daily. calcium citrate/vitamin D3 (CALCIUM CITRATE + D ORAL) Take 1 tablet by mouth once daily. MAGNESIUM ORAL Take 1 tablet by mouth once daily. Ferrous Sulfate 27 mg iron tab Take 27 mg by mouth three times daily. ipratropium-albuterol (DUONEB) 0.5 mg-3 mg(2.5 mg base)/3 mL nebu Inhale 3 mL as instructed every 6 hours as needed (wheezing/shortness of breath). Melatonin 5 mg cap Take 1 capsule by mouth daily at bedtime. albuterol (PROVENTIL) 2.5 mg /3 mL (0.083 %) nebulizer solution INHALE CONTENTS OF 1 VIAL NEBULIZED EVERY 8 HOURS esomeprazole (NEXIUM) 40 mg capsule Take 40 mg by mouth DAILY (6 AM). Nebulizers 1 Each as needed. citalopram (CELEXA) 40 mg tablet Take 1 tablet by mouth once daily. albuterol HFA (PROAIR HFA) 90 mcg/actuation inhaler Inhale 2 Puffs as instructed twice daily as needed. cyclobenzaprine (FLEXERIL) 10 mg tablet Take 1 tablet by mouth twice daily as needed. Cholecalciferol, Vitamin D3, 5,000 unit tab Take 1 tablet by mouth once daily. (Patient not taking: Reported on 12/27/2022) No current facility-administered medications for this visit. Allergies: Penicillins, Pyridium [Phenazopyridine Hcl], Sulfa (Sulfonamide Antibiotics), Zoloft [Sertraline], and Zonisamide This note was partially generated using VMTurbo voice recognition system, and there may be some incorrect words, spellings, and punctuation that were not noted in checking the note before saving. Georgia Bush PA-C AMB ROOMING INTAKE FLOWSHEET DATA Pain Pain Level: 3 Pain Location: Wrist-Left Description: Aching Duration Amount of Time: 12 Duration Units: Days Frequency: Intermittent Intervention/Comfort measure: Reposition, Relaxation Patient presents with: Left Wrist - Established Patient, Post Op, Pain Right Wrist - Established Patient, Post Op, Pain Patient present to office 1 week 5 days post op Bilateral CTR and 1st dorsal compartments release and injection in wrist. Génesis Paz LPN documented in this encounter [facility] 01-26-2023 Note HNO ID: [id number] Author: Dara Hernandez RN Service: Nursing Author Type: Registered Nurse Type: Nursing Progress Note Filed: 01/26/2023 9:56 AM Note Text: Other: attempt to call report to II, RN will call back. [facility] 01-10-2023 Instructions Aparna Scott APRN.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 - 01/10/2023 9:59 AM EST PATIENT PREOPERATIVE INSTRUCTIONS [facility]: [phone] -- [address] [facility] [address]. Please read below carefully for your personalized instructions. Dietary Restrictions: - No solid food after midnight. - You may have 12 ounces of clear liquids (water, clear juices such as apple juice or gatorade, carbonated beverages, clear tea, black coffee, jello) until 2 hours before scheduled arrival at facility. - Do not drink any alcohol after midnight the night before your surgery. Medications: Unless instructed differently below, stay on all of your medications until your surgery. Approved medications to take the morning of surgery with a sip of water: inhalers, levothyroxine (synthoid), esomeprazole (nexium), and Citalopram (celexa). If you start any new medications after today's visit, please contact the surgeon's office. Blood Thinning Medications: - Stop NSAIDS (Ibuprofen, Advil, Aleve, Motrin, Celebrex, Mobic, etc.) 7 days before surgery, as directed by your surgeon. - Stop Aspirin 7 days before surgery, as directed by your surgeon. - Stop Vitamin E, ALL multi-vitamins, herbals and dietary supplements 7 days before surgery. - You may take Tylenol (Acetaminophen) or any of your pain medications that do not contain aspirin or NSAIDS as needed. Important Reminders: - Candy, mints, and tobacco products are NOT permitted the morning of surgery. - Hearing aids, dentures and glasses may be worn the morning of surgery. - NO jewelry, body piercings, makeup, hairpins or contacts are to be worn the day of surgery. If you develop symptoms such as a fever, cold, or flu, or have other changes to your health within TWO DAYS of scheduled surgery or the morning of surgery, please contact the surgery center above. Personal Belongings: -Please have photo ID and insurance cards. -If you do not have a copy of advance directives on file with us, please bring a copy with you on the day of surgery. - Leave ALL valuables and money at home or with family members. For Outpatient Procedures: - YOU MUST HAVE A RESPONSIBLE MENTAL RETARDATION NURSE TAKE YOU HOME. A RESIDENTIAL CARPENTER OR BASKET MACHINE OPERATOR CANNOT BE MADE A RESPONSIBLE MENTAL RETARDATION NURSE. - We recommend that a responsible person stays with you overnight to take care of you. - You cannot stay in a hotel alone after outpatient surgery. You will not be permitted to have your surgery, if you do not have someone to take care of you. Arrival Time for Surgery: - The Surgery Center or hospital where you are having surgery will call the afternoon before surgery (or Tuesday for Tuesday surgery) with a scheduled arrival time. - If you have not heard by 4 pm, please contact the surgery center above. Please be aware that emergency situations arise, which may delay or change your surgical time. If this happens, we will notify you as soon as possible and regret any inconvenience. If you already have an Advance Directive, please fax a copy to [phone] or email to for it to be added to your chart. If you do not have an Advance Directive, you can find the appropriate form and more information at [email or web address]. We recommend that you complete the Advance Directive form found on the website and bring it with you the day of your surgery. It can be witnessed and scanned into your chart that day. Aparna Scott APRN.CNP documented in this encounter [facility] 01-10-2023 History and physical note HISTORY AND PHYSICAL EXAMINATION SERVICE DATE: 01/10/2023 SERVICE TIME: 9:37 AM PRIMARY CARE PHYSICIAN: Noble West, DO, DO REASON FOR VISIT: Dion Mace is a 77 year old female who is scheduled for Procedure(s): DECOMPRESSION NERVE MEDIAN CARPAL TUNNEL (Bilateral) INCISION EXTENSOR TENDON SHEATH WRIST (Left) at the request of Dr. Carlos Reeves MD for consultation. My final recommendation will be communicated back to the requesting physician by way of shared medical record or letter. Subjective The patient has the following: ACTIVE PROBLEM LIST Migraine Herpes Simplex Osteoporosis Hypothyroidism Copd (Chronic Obstructive Pulmonary Disease) (Hcc) Anemia Thrombocytosis Ibs (Irritable Bowel Syndrome) Shoulder Capsulitis Lyme Disease Insomnia Hyperlipidemia, Mixed Breast Lump Diverticulitis H1n1 Influenza Heart Murmur Hiatal Hernia History of Cardiac Cath History of Echocardiogram History of Stress Test Benign Hypertension Rheumatic Fever Serum Iron Raised TMJ (Dislocation of Temporomandibular Joint) History of Tobacco Abuse Cad (Coronary Artery Disease) Rbbb Chronic Fatigue Folic Acid Deficiency Aortic Valve Insufficiency Depression COVID-19 Immunization Status Overdue - COVID-19 VACCINE (1) Overdue - never done No completion, postpone, frequency change, or communication history exists for this topic. CHIEF COMPLAINT: Pre-op evaluation HPI: 77 year old female here for pre-op evaluation. Symptoms started about 2 years ago and have been worsening. +injection in left wrist that wasn't helpful. +bilateral hand numbness/tingling and wrist pain. Improved with flexeril, currently rated 6/10, and described as dull ache. Right wrist radiates into shoulder. REVIEW OF SYSTEMS: General: No weight loss, malaise or fevers. Neurological: Positive for: headaches and impaired sensorium (see HPI). Negative for: multiple sclerosis, Parkinson's disease, seizures and strokes. Respiratory: Positive for: COPD, dyspnea, home oxygen (3L at night) and orthopnea. Negative for: asthma, current cough, tobacco use and obstructive sleep apnea. Cardiovascular: Positive for: arrhythmia (RBBB), CAD, hyperlipidemia, hypertension and murmur/valvular heart disease Negative for: angina, atrial fibrillation, chest pain, CHF and DVT/PE. GI: Positive for: GERD Negative for: abdominal pain, dysphagia, liver disease, nausea and vomiting. : Positive for: frequent urination. Negative for: dysuria, hematuria, urinary incontinence, renal failure and urgency. 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 Endocrine: Positive for: hypothyroidism. Negative for: diabetes mellitus and hyperthyroidism. Hematology: Positive for: anemia. Negative for: bruises/bleeds easily. Oncology: No history of CA metastasis, chemo within 30 days, or radiotherapy within 90 days. No history of oncological symptoms or problems. Psych: Positive for: depression. Negative for: anxiety. Musculoskeletal: See HPI. Skin: Negative for lesions, rash and itching. PAST MEDICAL HISTORY Diagnosis Date Anemia Benign hypertension Breast lump CAD (coronary artery disease) COPD (chronic obstructive pulmonary disease) (HCC) Diverticulitis H1N1 influenza 2012 hospitalized Heart murmur Hiatal hernia History of cardiac cath 09/21/2012 luminal irregularity 10-20% in the proximal & distal LAD luminal irregularities proximal ramus normal circ normal RCA normal L ventricular hemodynamics normal R heart pressures History of echocardiogram 04/27/2021 EF 75-80%, mild AR, mild MR, trace-mild TR, trace LA History of stress test 03/13/2009 normal lexiscan stress tecjmetium sestambi myocardial perfusion study hyperkinetic ventricle with supernormal EF 76% History of stress test 07/06/2021 overall technically difficult study motion noted on review of rotating raw images TID ratio is 0.93 EF 70% no regional wall motion abnormalities no clear evidence of fixed or reversible defects History of tobacco abuse Hypothyroidism IBS (irritable bowel syndrome) Lyme disease Osteoporosis RBBB Rheumatic fever TMJ (dislocation of temporomandibular joint) PAST SURGICAL HISTORY Procedure Laterality Date ADENOIDECTOMY PRIMARY AGE 13/> APPENDECTOMY BREAST BX NEEDLE CORE LEFT COLONOSCOPY EGD HEART CATHETERIZATION 2011 [facility] HIATAL HERNIA REPAIR HX MRI SHOULDER WO right shoulder REIMPLANTATION OF KIDNEY right SALPINGO-OOPHORECTOMY COMPL/PRTL UNI/BI SPX TONSILLECTOMY PRIMARY/SECONDARY <AGE 13 Tonsillectomy TOTAL ABDOMINAL HYSTERECT W/WO RMVL TUBE OVARY 1970 FAMILY HISTORY Problem Relation Age of Onset Cancer Mother 1978 Cancer Father lung problems? mesothioloma Lung Cancer Sister Lymphoma Sister Heart Sister Colon Cancer Brother age 56, 1998 Heart Brother Heart Son Heart Son Social History Tobacco Use Smoking status: Former Packs/day: 1.50 Years: 40.00 Pack years: 60.00 Types: Cigarettes Start date: 1964 Quit date: 03/10/2004 Years since quittin.8 Smokeless tobacco: Never Tobacco comments: No smoking in childhood home. Spouse quit smoking 2001. Vaping Use Vaping Use: Never used Substance Use Topics Alcohol use: No Comment: Quit 1993. Drug use: No Prior to Admission medications as of 01/10/23 0942 Medication Sig Last Dose Taking codeine/butalbital/ASA/caffein (FIORINAL-CODEINE #3 ORAL) Take by mouth. Taking Yes TRELEGY ELLIPTA 100-62.5-25 mcg inhalation powder INHALE 1 PUFF INSTRUCTED ONCE DAILY. Taking Yes hydroCHLOROthiazide (HYDRODIURIL, ESIDRIX) 12.5 mg tablet Take 1 tablet by mouth once daily Taking Yes folic acid 1 mg tablet Take 1 tablet by mouth once daily. Taking Yes cholecalciferol, Vitamin D3, (VITAMIN D3) 1,250 mcg (50,000 unit) cap capsule Take 50,000 Units by mouth one time a week. Taking Yes levothyroxine (SYNTHROID) 150 mcg tablet Take 175 mcg by mouth once daily. Taking Yes calcium citrate/vitamin D3 (CALCIUM CITRATE + D ORAL) Take 1 tablet by mouth once daily. Taking Yes MAGNESIUM ORAL Take 1 tablet by mouth once daily. Taking Yes Ferrous Sulfate 27 mg iron tab Take 27 mg by mouth three times daily. Taking Yes ipratropium-albuterol (DUONEB) 0.5 mg-3 mg(2.5 mg base)/3 mL nebu Inhale 3 mL as instructed every 6 hours as needed (wheezing/shortness of breath). Taking Yes Melatonin 5 mg cap Take 1 capsule by mouth daily at bedtime. Taking Yes albuterol (PROVENTIL) 2.5 mg /3 mL (0.083 %) nebulizer solution INHALE CONTENTS OF 1 VIAL NEBULIZED EVERY 8 HOURS Taking Yes esomeprazole (NEXIUM) 40 mg capsule Take 40 mg by mouth DAILY (6 AM). Taking Yes Nebulizers 1 Each as needed. Taking Yes citalopram (CELEXA) 40 mg tablet Take 1 tablet by mouth once daily. Taking Yes albuterol HFA (PROAIR HFA) 90 mcg/actuation inhaler Inhale 2 Puffs as instructed twice daily as needed. Taking Yes cyclobenzaprine (FLEXERIL) 10 mg tablet Take 1 tablet by mouth twice daily as needed. Taking Yes Cholecalciferol, Vitamin D3, 5,000 unit tab Take 1 tablet by mouth once daily. Patient not taking: Reported on 12/27/2022 Medication Comments documented by Mila Parikh [facility] on 05/15/2015 at 1033. Patient discontinued the lotrisone lotion. Patient states that PCP discontinued the dicyclomine. ALLERGIES Allergen Reactions Penicillins Swelling, Anaphylaxis Pyridium [Phenazopy* GI Upset, Vomiting Sulfa (Sulfonamide * Swelling, Anaphylaxis Zoloft [Sertraline] Other: See Comments Depression Zonisamide Rash Objective PHYSICAL EXAM: General: alert and oriented and healthy appearance. Pertinent negatives noted - not distressed. Skin: normal color, no rash or lesions. HEENT: pupils equal round and pupils reactive to light. Pertinent negatives noted - no carotid bruit. Cardiovascular: regular rate and rhythm, normal S1 and S2, no rub, murmurs, or gallop. Respiratory: normal breath sounds, no wheezes or crackles. Abdomen: soft. Pertinent negatives noted - not tender. Extremities: no deformity, no edema or tenderness, no joint swelling or clubbing. Neurological: normal cognition and motor skills. Gait normal. No weakness or sensory deficit. PAIN ASSESSMENT: Pain Pain Level: 7 Pain Location: Wrist-Left (Wrists bilateral) Description: Radiating, Sore Duration Amount of Time: 2 Duration Units: Years Frequency: Continuous Intervention/Comfort measure: Medication VITALS: BP 112/70 Pulse 61 Temp (Src) 98.1 (Temporal) Resp 16 Ht 5' .5 (1.54m) Wt 157 lb (71.2kg) SpO2 91% BMI 30.15 kg/(m^2). Diagnostic tests reviewed for today's visit: Lab Value Units Date High Low HB No results within date range. HCT No results within date range. WBC No results within date range. PLT No results within date range. NA No results within date range. K No results within date range. GLUC No results within date range. BUN No results within date range. CREAT No results within date range. PTSEC No results within date range. INR No results within date range. APTT No results within date range. ALT No results within date range. AST No results within date range. TBILI No results within date range. TSH No results within date range. Lab Value Units Date High Low HCGQT No results within date range. UHCG No results within date range. HCG, BODY* No results within date range. Lab Value Units Date High Low ABORHD No results within date range. ABSCREEN No results within date range. Hemoglobin A1C (%) Date Value 07/22/2015 5.7 No results found for this or any previous visit (from the past 8760 hour(s)). No results found for this or any previous visit (from the past 68713 hour(s)). Assessment Patient has the following medical conditions which may affect evan-operative course: Migraine Assessment: Controlled on rx Hyperlipidemia, mixed Assessment: Not on rx, follows with [facility] last OV 12/16/22. Benign hypertension Assessment: On rx, follows with [facility] last OV 12/16/22. Denies CP or palpitations. +chronic MCKEON, orthopnea, and night time O2 usage. Last 3 Encounter BP Readings: Date: BP: 01/10/2023 112/70 08/09/2022 126/64 07/29/2021 152/85 CAD (coronary artery disease) Assessment: Follows with [facility] last OV 12/16/22. Denies CP or palpitations. +chronic MCKEON, orthopnea, and night time O2 usage. History of cardiac catheterization from September 2012 demonstrating minimal disease in the proximal left anterior descending artery and distal left anterior descending artery her right-sided pressures were noted to be normal. H/o normal Lexiscan pharmacologic myocardial perfusion stress test. RBBB Assessment: Chronic follows with cardiology. COPD (chronic obstructive pulmonary disease) ([facility]) Assessment: Follows with [facility] last OV 08/09/22. Uses daily trelogy. Has used albuterol 2 times in the last week. Pulse ox in office today 91%, per patient at home it's about 91-93%. Denies CP or palpitations. +chronic MCKEON, orthopnea, and night time oxygen at 3L. Lungs clear on exam and patient talking in calm/unlabored sentences. Hypothyroidism Assessment: on rx TMJ (dislocation of temporomandibular joint) Assessment: Denies history of locking Anemia Assessment: Labs on 12/16/22. Hemoglobin 13.5 %, hematocrit 42.5. Treated with oral iron. Aortic valve insufficiency Assessment: echo 08/2022 mild AV insufficiency. No murmur heard on exam today. Depression Assessment: Stable on rx. Denies thoughts of self harm or harming others. Prasad Activity Status Index: METS: Walk a block or two on level ground (2.75 METs) DASI Score: 2.75 Patient denies any chest pain or undue shortness of breath with the above physical activity. Clinical Frailty Scale: 4. Apparently vulnerable STOP-Bang Score: Has or is being treated for high blood pressure Patient over 50 years old Denies snoring loudly Denies feeling tired, fatigued, or sleepy during the daytime Has not been observed to stop breathing or choking/gasping during sleep BMI less than or equal to 35 kg/m^2 Does not have a large neck Non-male patient STOP-Bang Score: 2 [id number] Score: Age: >=75 Sex: Female CHF history: No Hypertension history: Yes Stroke/TIA/thromboembolism history: No Vascular disease history: Yes Diabetes history: No [id number] Score: 5 ASA Class: 3 ANESTHESIA FINDINGS: Intubation History: No history of difficult intubation. No abnormal airway history Significant Anesthesia Considerations: none Airway History: No history of difficult airway No abnormal airway history I - PHYSICAL EVALUATION AIRWAY Patient intubated: No. Tracheostomy tube not present Mallampati: III. TM distance: >3 FB. Neck ROM: full ROM without neurological symptoms. Mouth opening: adequate. Short neck: no. Thick neck: no Benitez present: no DENTAL Dentures, upper: partial. Dentures, lower: partial. II - ANESTHESIA PLAN ASA Score: 3 Anesthetic Plan: MAC Beta Raeann Monitoring Plan Post Procedure Analgesic Plan Prepared for Surgery: optimally prepared for surgery. CONSULTS: Patient does not require consults for optimization at this time Planned Anesthetic: MAC The Following Tests/Procedures Have Been Initiated: Orders Placed This Encounter codeine/butalbital/ASA/caffein (FIORINAL-CODEINE #3 ORAL) Sig: Take by mouth. Instructions Given to Patient: Instructions located in the after visit summary. Patient given verbal and written preop instructions and voices comprehension and compliance. SIGNATURE: Aparna Scott APRN.CNP PATIENT NAME: Doin Mace DATE: January 10, 2023 TIME: 9:37 AM PAGER/CONTACT #: documented in this encounter [facility] 01-04-2023 Miscellaneous Notes Called and spoke with patient. Confirmed her surgery date is 01/26/23 as scheduled. Patient called stating she received an surgery confirmation letter stating her procedure is on 01/28/2023. Advised patient that records show procedure being scheduled for 01/26/23. Encouraged patient to bring letter to Pre-Anes appointment on 01/10 to clarify which date is correct. Patient verbalized understanding. Darcy Oviedo LPN documented in this encounter [facility] 12-27-2022 Note HNO ID: [id number] Author: Carlos Reeves MD Service: ? Author Type: Physician Type: Progress Notes Filed: 01/20/2023 10:21 AM Note Text: Carlos Reeves MD Department of Orthopaedics [facility] [address] [facility] [address] Dept: [phone] Dept December 27, 2022 CHIEF COMPLAINT: New and Pain of the Right Wrist and New and Pain of the Left Wrist HPI Patient here for evaluation of bilateral wrist pain. Patient states she has had pain for over a year. Has gotten worse in the past 2 months. She is wearing a cock up wrist on her wrist and states it helps her shoulder pain. She is having numbness and tingling in her left 1-3 fingers. She has been dropping things.She had been going to [facility] and was given a cortisone injection in her left wrist 1 1/2 years ago and did not help. She feel her right wrist is worse than her left. She was told she needed surgery but did not want to have it done there. Patient is right hand dominant. Wil with patient today. X-rays done today. Patient did have an EMG done at [facility] 1 1/2 years ago. ASSESSMENT: G56.03 Bilateral carpal tunnel syndrome (primary encounter diagnosis) M65.4 De Quervain's tenosynovitis M25.531 Right wrist pain PLAN: She has a positive nerve test for right carpal tunnel findings. She has consistent symptoms for the same problem on the left though they did not do bilateral exams at that time. She previously had a successful carpal tunnel injection however on the left in the past as well albeit temporary. The right wrist joint proper is giving her some trouble and certainly the left first dorsal compartment for stenosing tenosynovitis. We reviewed all of these options. The risks, benefits, alternatives and potential complications involving each. She is interested in getting both of her carpal tunnels done and at the same setting the de Quervain's released and we will provide her while under anesthesia a cortisone injection for the right wrist. FOLLOW UP INSTRUCTIONS: Get her scheduled at her convenience. Ms. Dion Mace was advised as to contrast therapies and/or to take analgesics/anti-inflammatories as needed and all contraindications were reviewed. OBJECTIVE: Ms. Dion Mace is a pleasant 77 year old in no apparent distress. Gen:There were no vitals taken for this visit. nl development, non obese, no deformities ENT: Normocephalic, normal hearing, moist mucosa CV: Pulses:Radial= 2+ and symmetric, capillary refill < 2 secs, no peripheral edema/varicosities Skin: no rash, bruising or lesions. Good turgor. Psych: cooperative and appropriate, alert and oriented x 3, good mood and affect. Musculoskeletal: Cervical spine has supple range of motion and no tenderness to palpation, Spurling's sign negative. Shoulders and elbows have full range of motion. negative Tinel's over the cubital tunnel, no subluxation of ulnar nerve at the elbow with flexion. Negative Tinel's over Guyon's canal. Inspection reveals no thenar atrophy. Diminished sensation to light touch in the radial 3 digits, right greater than left. Sensation intact in the ulnar 2 digits with out intrinsic atrophy/weakness. Positive Tinel's at the wrist, positive carpal tunnel compression testing on the again right worse than left. No locking or catching of the digits. Tender to palpation at the first dorsal compartment of the left wrist with a positive Cheyenne's test. Good range of motion however of the left wrist. Right wrist has some mild diminished motion secondary to some pain in the radiocarpal and ulnar-sided fossa of the wrist. Tender at the ulnar fossa as well. IMAGING: IMPRESSION: Stable mild left first metacarpal carpal joint degenerative changes. Debeader: DRE Transcribe Date/Time: Dec 28 2022 9:54A Dictated by : AMANDO MATTHEWS MD This examination was interpreted and the report reviewed and electronically signed by: AMANDO MATTHEWS MD on Dec 28 2022 9:55AM EST Results-Findings * * *Final Report* * * DATE OF EXAM: Dec 27 2022 10:55AM [id number] - XR WRIST 3V PA/LAT/OBL BELKIS / PROCEDURE REASON: Pain * * * * Physician Interpretation * * * * TITLE: XR WRIST 3V PA/LAT/OBL BELKIS CLINICAL INDICATION: Pain TECHNIQUE: 3 view radiographic study of the bilateral wrists COMPARISON: Left wrist radiograph dated May 18, 2021 FINDINGS: Left wrist: No acute fracture or dislocation identified. Stable mild first metacarpal carpal joint degenerative changes with mild subchondral sclerosis and mild hypertrophic change. Right wrist: No acute fracture or dislocation. Joint spaces preserved. Supporting Subjective Information Below: Past Medical History: PAST MEDICAL HISTORY Diagnosis Date Anemia Benign hypertension Breast lump CAD (coronary artery disease) COPD (chronic obstructive pulmonary disease) (HCC) Diverticulitis (more content not included)... [facility] 12-27-2022 Note HNO ID: [id number] Author: RT Maria Esther(Taylor) Service: ? Author Type: Contract Specialist Type: Progress Notes Filed: 12/27/2022 10:56 AM Note Text: Radiology Service Progress Note PATIENT NAME: Dion Mace DATE OF SERVICE: December 27, 2022 TIME: 10:43 AM PATIENT IDENTITY VERIFICATION COMPLETED USING TWO (2) IDENTIFIERS: Name and Date of confirmed by patient verbally. FALL SCREENING: Has the patient had 2 falls in the last year or 1 fall with injury or currently using an Ambulatory Assistive Device (Walker, Cane, Wheelchair, Crutches, etc.)? No PATIENT GENDER DATA: Female. status: : No status: NO. PATIENT RELEVANT IMPLANT DATA REVIEWED: Yes RADIOLOGY DEPARTMENT: General X-ray: Exam(s) Completed: Upper Extremity X-Ray(s): Wrist, bilateral PERIPHERAL IV DATA: Not applicable SIGNED BY: RT Maria Esther(R) December 27, 2022 10:43 AM [facility] 09-01-2022 Miscellaneous Notes Pharmacy faxes requesting refill: Requested Prescriptions Refused Prescriptions Disp Refills hydroCHLOROthiazide (HYDRODIURIL, ESIDRIX) 12.5 mg tablet [Pharmacy Med Name: hydroCHLOROthiazide 12.5 MG Oral Tablet] 30 tablet 0 Sig: Take 1 tablet by mouth once daily NO LONGER OUR PATIENT Phone #: [phone] (home) [phone] (cell) The patients preferred pharmacy has been captured for this encounter? 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 No longer a patient. Mariana Hodgson August 31, 2022 2:26 PM Patient has not been seen in over a year. Last office visit was 04/02/21 . Please make appointment and let patient know they can have a 30 day refill only until they come for their appointment or they can call their PCP for a refill documented in this encounter [facility] 08-09-2022 Note HNO ID: [id number] Author: Carmela Branch PA-C Service: ? Author Type: Physician Bag Inspector Type: Progress Notes Filed: 08/09/2022 1:36 PM Note Text: [facility] [place], 08/09/2022: Name: Dion Mace : 1945 The patient is here today by herself. HPI: Dion Mace is a 76 yo female former smoker, 60-pack years (quit 2003), with PMH significant for HTN, CAD s/p cath 2011, diverticulitis, hiatal hernia, hypothyroidism, IBS, rheumatic fevers, osteoporosis, and COPD. The patient is here for follow up of COPD. Since the last Pulmonary Clinic visit 04/06/2021, the patient has not required ED care for exacerbation. There has been no hospital admission for exacerbation. Claims to be consistently compliant with prescribed maintenance Rx Trelegy ellipta daily. Does not require rescue bronchodilator use. Denies cough. No hemoptysis. No wheezing. No dyspnea at rest. Exertional dyspnea has not changed. Difficulty with carrying objects, being outside, getting yard work done. Currently wearing 3 L supplemental oxygen at night. DME: Sara Per patient, she is establishing care with [facility] on 08/18/22. PMH: Updated with patient today. FAMH: Updated with patient today. SOCH: Updated with patient today. IMMUNIZATIONS Prevnar - 10/09/2020, 08/30/2016 Pneumovax 23 - 02/11/2013 Influenza - 09/09/2021 COVID-19 - xx ROS: General: Generally feels well. Appetite good. Eyes, Ears, nose, throat: No post nasal drip, rhinorrhea, purulent nasal discharge, epistaxis. No hoarseness. Vision stable. Cardiac: No angina, edema. Sleeps in recliner because of my breathing and reflux . Resp: See HPI. GI: No heartburn at this time. No dysphagia. Musculoskeletal: Chronic back pain. Neuro: No headache, focal weakness, tremor. Skin: No rash. Otherwise negative. Allergies were reviewed and updated, and medications were reconciled with the patient. PHYSICAL EXAMINATION: BP 126/64 Pulse 68 Resp 14 Ht 154.9 cm (5' 1 ) Wt 66.7 kg (147 lb) SpO2 95% BMI 27.78 kg/m? Gen: No acute distress. Cooperative with examination. ENT: Oral hygeine and dentition good. Pharynx clear. No halitosis. No sign of oral thrush. Resp: No stridor, accessory respiratory muscle use, supra-sternal or intercostal retractions. No wheezes, crackles. CV: Regular rythm. Normal heart sounds. Radial pulses normal. Abd: Non distended. MSK: No kyphoscoliosis. Ext: Warm and well perfused. No clubbing, cyanosis, edema. Skin: No rash, ecchymoses. Neuro: Mental status normal. Affect normal. No tremor. DATA REVIEW: DATE: 08/09/2022 10/09/2020 07/07/2020 07/10/2015 FVC 2.44, 101% 2.54, 102% 1.99, 80% 2.14, 78% FEV1 0.89, 48% 1.37, 71% 0.96, 49% 1.05, 50% FEV1/FVC 0.36 0.54 0.48 0.49 DLco xx xx xx 11.3, 57% Echocardiogram, 05/02/2021 Interpretation Summary LVEF 75 to 80% with mild LV diastolic dysfunction. The right ventricle is normal in size and function. No hemodynamically significant valvular aortic stenosis. Mild aortic regurgitation. There is mild mitral regurgitation. There is Trace to mild tricuspid regurgitation. Right ventricular systolic pressure is elevated at 35- 40mmHg. Trace pulmonic valvular regurgitation. Trivial pericardial effusion. No any prior study available for comparison. ASSESSMENT/PLAN: 1. Moderate COPD (chronic obstructive pulmonary disease) (HCC) - ICD9: 496, ICD10: J44.9 (primary diagnosis) Continue Trelegy ellipta 1 inhalation daily. Rinse mouth after each use to help prevent oral thrush. FEV1 today stable when compared to previous PFTs. Last PFT was inconsistent with the trend previously seen and today. Albuterol HFA inhaler, 2 inhalations 10-15 minutes prior to activities associated with shortness of breath, and as needed for rescue relief of shortness of breath or wheezing, up to 4 times daily. 2. Former smoker - ICD9: V15.82, ICD10: Z87.891 Patient does not qualify for lung cancer screening. I addressed the questions of the patient, and she expressed understanding and acceptance of my answers. Carmela Branch PA-C [facility] 08-09-2022 Note HNO ID: [id number] Author: JACINTO Beck Service: ? Author Type: Respiratory Therapist Type: Progress Notes Filed: 08/09/2022 10:01 AM Note Text: PULM FUNCTION SMARTBLOCK: Provider: Carmela Branch PA-C Assisting Tech: JACINTO Beck Spirometry: 1 [facility] 08-09-2022 History of Present illness Narrative [facility] [place], 08/09/2022: Name: Dion Mace : 1945 The patient is here today by herself. HPI: Dion Mace is a 76 yo female former smoker, 60-pack years (quit 2003), with PMH significant for HTN, CAD s/p cath 2011, diverticulitis, hiatal hernia, hypothyroidism, IBS, rheumatic fevers, osteoporosis, and COPD. The patient is here for follow up of COPD. Since the last Pulmonary Clinic visit 04/06/2021, the patient has not required ED care for exacerbation. There has been no hospital admission for exacerbation. Claims to be consistently compliant with prescribed maintenance Rx Trelegy ellipta daily. Does not require rescue bronchodilator use. Denies cough. No hemoptysis. No wheezing. No dyspnea at rest. Exertional dyspnea has not changed. Difficulty with carrying objects, being outside, getting yard work done. Currently wearing 3 L supplemental oxygen at night. DME: Sara Per patient, she is establishing care with [facility] on 08/18/22. PMH: Updated with patient today. FAMH: Updated with patient today. SOCH: Updated with patient today. IMMUNIZATIONS Prevnar 13 - 10/09/2020, 08/30/2016 Pneumovax - 02/11/2013 Influenza - 09/09/2021 COVID-19 - xx ROS: General: Generally feels well. Appetite good. Eyes, Ears, nose, throat: No post nasal drip, rhinorrhea, purulent nasal discharge, epistaxis. No hoarseness. Vision stable. Cardiac: No angina, edema. Sleeps in recliner because of my breathing and reflux . Resp: See HPI. GI: No heartburn at this time. No dysphagia. Musculoskeletal: Chronic back pain. Neuro: No headache, focal weakness, tremor. Skin: No rash. Otherwise negative. Allergies were reviewed and updated, and medications were reconciled with the patient. PHYSICAL EXAMINATION: BP 126/64 Pulse 68 Resp 14 Ht 154.9 cm (5' 1 ) Wt 66.7 kg (147 lb) SpO2 95% BMI 27.78 kg/m Gen: No acute distress. Cooperative with examination. ENT: Oral hygeine and dentition good. Pharynx clear. No halitosis. No sign of oral thrush. Resp: No stridor, accessory respiratory muscle use, supra-sternal or intercostal retractions. No wheezes, crackles. CV: Regular rythm. Normal heart sounds. Radial pulses normal. Abd: Non distended. MSK: No kyphoscoliosis. Ext: Warm and well perfused. No clubbing, cyanosis, edema. Skin: No rash, ecchymoses. Neuro: Mental status normal. Affect normal. No tremor. DATA REVIEW: DATE: 08/09/2022 10/09/2020 07/07/2020 07/10/2015 FVC 2.44, 101% 2.54, 102% 1.99, 80% 2.14, 78% FEV1 0.89, 48% 1.37, 71% 0.96, 49% 1.05, 50% FEV1/FVC 0.36 0.54 0.48 0.49 DLco xx xx xx 11.3, 57% Echocardiogram, 05/02/2021 Interpretation Summary LVEF 75 to 80% with mild LV diastolic dysfunction. The right ventricle is normal in size and function. No hemodynamically significant valvular aortic stenosis. Mild aortic regurgitation. There is mild mitral regurgitation. There is Trace to mild tricuspid regurgitation. Right ventricular systolic pressure is elevated at 35- 40mmHg. Trace pulmonic valvular regurgitation. Trivial pericardial effusion. No any prior study available for comparison. ASSESSMENT/PLAN: 1. Moderate COPD (chronic obstructive pulmonary disease) (HCC) - ICD9: 496, ICD10: J44.9 (primary diagnosis) Continue Trelegy ellipta 1 inhalation daily. Rinse mouth after each use to help prevent oral thrush. FEV1 today stable when compared to previous PFTs. Last PFT was inconsistent with the trend previously seen and today. Albuterol HFA inhaler, 2 inhalations 10-15 minutes prior to activities associated with shortness of breath, and as needed for rescue relief of shortness of breath or wheezing, up to 4 times daily. 2. Former smoker - ICD9: V15.82, ICD10: Z87.891 Patient does not qualify for lung cancer screening. I addressed the questions of the patient, and she expressed understanding and acceptance of my answers. Carmela Branch PA-C documented in this encounter [facility] 08-09-2022 Nurse Note Intake information documented in the prior visit with JACINTO Beck today. documented in this encounter [facility] 08-09-2022 History of Present illness Narrative PULM FUNCTION SMARTBLOCK: Provider: Carmela Branch PA-C Assisting Tech: JACINTO Beck Spirometry: 1 documented in this encounter [facility] 05-26-2022 Miscellaneous Notes See message below. Patient does not want to make an appointment. Spoke with patient and she has about 90 days left of requested medication. She will call her PCP to see if he will prescribe it. She did not want to schedule an appointment at this time. If she wants a refill from our office she will call. Mariana Hodgson May 26, 2022 3:50 PM Patient has not been seen in over a year. Last office visit was 04/02/21 . Please make appointment and let patient know they can have a 30 day refill only until they come for their appointment. documented in this encounter [facility] 05-11-2022 Miscellaneous Notes Pharmacy faxes requesting refill: Refused Prescriptions Disp Refills hydroCHLOROthiazide (HYDRODIURIL, ESIDRIX) 12.5 mg tablet [Pharmacy Med Name: hydroCHLOROthiazide 12.5 MG Oral Tablet] 16 tablet 0 Sig: Take 1 tablet by mouth once daily [place]: No Patient does not want to make an appointment at this time Date of last visit: 04/02/2021 Phone #: [phone] (home) [phone] (cell) The patients preferred pharmacy has been captured for this encounter? yes Called patient and explained we could only give 30 day refill of medication. Patient could not reschedule appointment due to being incapacitated and stated they would call back. documented in this encounter [facility] 01-17-2022 Hospital Discharge instructions Patient Education 01/17/2022 15:41:54 Chest Wall Contusion Chest Contusion A contusion is a bruise to the skin, muscle, or ribs. It may cause pain, tenderness, and swelling. It may turn the skin purple until it heals. Contusions take a few days to a few weeks to heal. Home care Follow these guidelines when caring for yourself at home: Rest. Don t do any heavy lifting or strenuous activity. Don t do any activity that causes pain. Put an ice pack on the injured area. Do this for 20 minutes every 1 to 2 hours the first day. You can make an ice pack by wrapping a plastic bag of ice cubes in a thin towel. Continue to use the ice pack 3 to 4 times a day for the next 2 days. Then use the ice pack as needed to ease pain and swelling. After 1 to 2 days you may put a warm compress on the area. Do this for 10 minutes several times a day. A warm compress is a clean cloth that s damp with warm water. Hold a pillow to the affected area when you cough. This will help ease pain. You may use [id number]-[id number]-[id number] pain medicine such as acetaminophen or ibuprofen to control pain, unless another pain medicine was prescribed. If you have chronic liver or kidney disease, talk with your healthcare provider before using these medicines. Also talk with your provider if you ve had a stomach ulcer or gastrointestinal bleeding. Follow-up care Follow up with your healthcare provider, or as advised. When to seek medical advice Call your healthcare provider right away if any of these occur: New abdominal pain or abdominal pain that gets worse Fever of 100.4 F (38 C) or higher, or as directed by your healthcare provider Call 911 Call 911 if any of these occur: Dizziness, weakness, or fainting Shortness of breath, trouble breathing, or breathing fast Chest pain gets worse when you breathe Severe pain that comes on suddenly or lasts more than an hour [id number] [employer]. [address] [place] [address]. All rights reserved. This information is not intended as a substitute for professional medical care. Always follow your healthcare professional's instructions. Follow Up Care 01/17/2022 11:38:53 With:NOBLE WEST DO Address: [id number] When:2-4 days With:Go to emergency room if symptoms worsen Address:Unknown When:2-4 days [facility] 01-09-2022 Hospital Discharge instructions Patient Education 01/09/2022 18:17:18 Rib Contusion Rib Contusion A rib contusion is a bruise to one or more rib bones. It may cause pain, tenderness, swelling and a purplish discoloration. There may be a sharp pain while breathing. You will be assessed for other injuries. You will likely be given pain medicine. Rib contusions heal on their own, without further treatment. However, pain may take weeks to months to go away. Note that a small crack (fracture) in the rib may cause the same symptoms as a rib contusion. The small crack may not be seen on a chest X-ray. However, the conditions are managed in the same way. Home care Rest. Avoid heavy lifting, strenuous exertion, or any activity that causes pain. Ice the area to reduce pain and swelling. Put ice cubes in a plastic bag or use a cold pack. (Wrap the cold source in a thin towel. Do not place it directly on your skin.) Ice the injured area for 20 minutes every 1 to 2 hours the first day. Continue with ice packs 3 to 4 times a day for the next 2 days, then as needed for the relief of pain and swelling. Take any prescribed pain medicine as directed by your healthcare provider. If none was prescribed, take acetaminophen, ibuprofen, or naproxen to control pain. If you have a significant injury, you may be given a device called an incentive spirometer to keep your lungs healthy. Use as directed. Follow-up care Follow up with your healthcare provider during the next week or as directed. When to seek medical advice Call your healthcare provider for any of the following: Shortness of breath or trouble breathing Increasing chest pain with breathing Coughing Dizziness, weakness, or fainting New or worsening pain Fever of 100.4 F (38 C) or higher, or as directed by your healthcare provider [phone] [employer]. [address] [place] [address], [place] [address]. All rights reserved. This information is not intended as a substitute for professional medical care. Always follow your healthcare professional's instructions. Follow Up Care 01/09/2022 16:32:11 With:NOBLE WEST DO Address: [id number] When:2-4 days [facility] 04-27-2016 History of Past i llness Narrative Problem Noted Date Resolved Date Intractable migraine with aura without status mi grainosus 04/27/2016 01/10/2023 documented as of this encounter (statuses as of 01/10/2023) [facility] History of Past illness Narrative* Problem Noted Date Resolved Date Intractable migraine with aura without status mi grainosus 04/27/2016 01/10/2023 documented as of this encounter (statuses as of 02/08/2023) [facility] History of Past illness Narrative* Problem Noted Date Resolved Date Intractable migraine with aura without status mi grainosus 04/27/2016 01/10/2023 documented as of this encounter (statuses as of 03/26/2023) [facility] History of Past illness Narrative* Problem Noted Date Resolved Date Intractable migraine with aura without status mi grainosus 04/27/2016 01/10/2023 documented as of this encounter (statuses as of 03/27/2023) [facility] History of Past illness Narrative* Problem Noted Date Resolved Date Intractable migraine with aura without status mi grainosus 04/27/2016 01/10/2023 documented as of this encounter (statuses as of 03/31/2023) [facility] History of Past illness Narrative* Problem Noted Date Resolved Date Intractable migraine with aura without status mi grainosus 04/27/2016 01/10/2023 documented as of this encounter (statuses as of 05/09/2023) [facility] History of Past illness Narrative* Problem Noted Date Diagnosed Date Resolved Date Intractable migraine with au ra without status migrainosus 04/27/2016 01/10/2023 documented as of this encounter (statuses as of 09/26/2023) [facility] History of Past illness Narrative* Problem Noted Date Diagnosed Date Resolved Date Intractable migraine with au ra without status migrainosus 04/27/2016 01/10/2023 documented as of this encounter (statuses as of 09/26/2023) [facility] Appointment Date:02/03/2022 11:30:00 AM Scheduled Provider:NOBLE WEST DO Location:[facility] Appointment Type:PC OV Controlled Medication Future Scheduled Tests Laboratory* Complete Blood Count 07/23/21 Radiology* XR Wrist Minimum 3 Views Left 05/15/21 [facility] evaluation + Plan note Future Appointments Appointment Date:10/28/2023 11:00:00 AM Scheduled Provider:NOBLE WEST DO Location:[facility] Appointment Type:PC OV Controlled Medication Future Scheduled Tests Radiology* MRI Shoulder w/o Contrast Right 07/26/23 [facility] UpOutaluation + Plan note Future Appointments Appointment Date:10/28/2023 11:00:00 AM Scheduled Provider:NOBLE WEST DO Location:[facility] Appointment Type:PC OV Controlled Medication Diagnostic Tests Pending * Urine Culture 09/27/23 Future Scheduled Tests Radiology* MRI Shoulder w/o Contrast Right 07/26/23 [facility] UpOutaluation + Plan note Future Appointments Appointment Date:02/24/2024 10:50:00 AM Scheduled Provider:NOBLE WEST DO Location:[facility] Appointment Type:PC OV Controlled Medication Future Scheduled Tests Radiology* MRI Shoulder w/o Contrast Right 07/26/23 [facility] evaluation + Plan note Future Appointments Appointment Date:05/28/2024 11:20:00 AM Scheduled Provider:NOBLE WEST DO Location:[facility] Appointment Type:PC OV Controlled Medication [facility] Evaluation + Plan note Future Appointments Appointment Date:09/13/2024 10:00:00 AM Scheduled Provider: Location:[facility] DON[facility] Appointment Type:PC Nurse Injection Appointment Date:2024 08:30:00 AM Scheduled Provider: Location:[facility] Appointment Type:XR Esophogram W/Barium Tablet Appointment Date:11/26/2024 09:35:00 AM Scheduled Provider:NOBLE WEST DO Location:[facility] Appointment Type:PC OV Controlled Medication Future Scheduled Tests Radiology* XR Esophogram W/Barium Tablet 10/25/24 [facility] evaluation + Plan note Future Appointments Appointment Date:2024 08:30:00 AM Scheduled Provider: Location:[facility] Appointment Type:XR Esophogram W/Barium Tablet Appointment Date:11/26/2024 09:35:00 AM Scheduled Provider:NOBLE WEST DO Location:[place] Appointment Type:PC OV Controlled Medication Future Scheduled Tests Radiology* XR Esophogram W/Barium Tablet 10/25/24 [facility] Evaluation note* Diagnosis Benign hypertension Essential hypertension, benign documented in this encounter [facility] note* Diagnosis Moderate COPD (chronic obstructive pulmonary disease) ([facility]) Chronic airway obstruction, not elsewhere classified documented in this encounter [facility] note* Diagnosis Moderate COPD (chronic obstructive pulmonary disease) (HCC)- Primary Chronic airway obstruction, not elsewhere classified Former smoker Personal history of tobacco use, presenting hazards to health documented in this encounter [facility] note* Diagnosis Benign hypertension Essential hypertension, benign documented in this encounter [facility] note* Diagnosis Pre-op evaluation- Primary Preoperative examination, unspecified Intractable migraine with aura without status migrainosus Migraine with aura, with intractable migraine, so stated, without mention of status migrainosus Hyperlipidemia, mixed Mixed hyperlipidemia Benign hypertension Essential hypertension, benign Coronary artery disease involving [place] coronary artery of [place] heart without angina pectoris RBBB Right bundle branch block Chronic obstructive pulmonary disease, unspecified COPD type (HCC) Acquired hypothyroidism Unspecified hypothyroidism Dislocation of temporomandibular joint, sequela Anemia, unspecified type Aortic valve insufficiency, etiology of cardiac valve disease unspecified Depression, unspecified depression type Bilateral carpal tunnel syndrome Carpal tunnel syndrome De Quervain's tenosynovitis Radial styloid tenosynovitis Right wrist pain Pain in joint, forearm documented in this encounter [facility] note* Diagnosis Bilateral carpal tunnel syndrome- Primary Carpal tunnel syndrome De Quervain's tenosynovitis Radial styloid tenosynovitis documented in this encounter [facility] note* Diagnosis Bacterial conjunctivitis- Primary Other conjunctivitis documented in this encounter [facility] note* Diagnosis Shoulder impingement- Primary Other affections of shoulder region, not elsewhere classified Chronic right shoulder pain Pain in joint, shoulder region Bilateral carpal tunnel syndrome Carpal tunnel syndrome [facility] Diagnosis Chronic right shoulder pain- Primary Pain in joint, shoulder region Shoulder impingement Other affections of shoulder region, not elsewhere classified [facility] Diagnosis Pain Generalized pain [facility] Narrative No data available for this section [facility] Hospital Discharge instructions No data available for this section [facility] Progress note No data available for this section [facility] Reason for referral (narrative)* Diagnostic Procedure Only (Routine) - Closed Specialty Diagnoses / Procedures Referred By Contac t Referred To Contact XR IMAGING Diagnoses Chronic right shoulder pain Procedures XR SHOULDER GENERAL 3V OR MORE AP/TRUE AP/OTHER RIGHT RADEX SHOULDER COMPLETE MINIMUM 2 VIEWS Carlos Reeves MD [address] [place] [address] Xr Imaging Referral ID Status Reason Start Date Expiration Date V isits Requested Visits Authorized [id number] Closed Auto-Generate d Referral 04/11/2023 05/10/2024 1 1 [facility] for referral (narrative)* Diagnostic Procedure Only (Routine) - Closed Specialty Diagnoses / Procedures Referred By Contac t Referred To Contact XR IMAGING Diagnoses Pain Procedures XR WRIST GENERAL 3V PA/LAT/OBL BILATERAL RADEX WRIST COMPLETE MINIMUM 3 VIEWS Carlos Reeves MD [address] [place] [address] [place] [address] Referral ID Status Reason Start Date Expiration Date V isits Requested Visits Authorized [id number] Closed Auto-Generate d Referral 12/07/2022 01/06/2024 1 1 [facility] for visit Narrative* Diagnostic Procedure Only (Routine) - Closed Specialty Diagnoses / Procedures Referred By Contac t Referred To Contact XR IMAGING Diagnoses Chronic right shoulder pain Procedures XR SHOULDER GENERAL 3V OR MORE AP/TRUE AP/OTHER RIGHT RADEX SHOULDER COMPLETE MINIMUM 2 VIEWS Carlos Reeves MD [address] [place] [address] [place] [address] Referral ID Status Reason Start Date Expiration Date V isits Requested Visits Authorized [id number] Closed Auto-Generate d Referral 04/11/2023 05/10/2024 1 1 [facility] for visit Narrative* Diagnostic Procedure Only (Routine) - Closed Specialty Diagnoses / Procedures Referred By Contac t Referred To Contact XR IMAGING Diagnoses Pain Procedures XR WRIST GENERAL 3V PA/LAT/OBL BILATERAL RADEX WRIST COMPLETE MINIMUM 3 VIEWS Carlos Reeves MD [address] [place] [address] [place] [address] Referral ID Status Reason Start Date Expiration Date V isits Requested Visits Authorized [id number] Closed Auto-Generate d Referral 12/07/2022 01/06/2024 1 1 [facility] Summary Purpose Family History No Family History Records FoundNo Family History Records FoundNo Family History Records Found No data available for this section No data available for this section No data available for this section No data available for this section No Family History Records Found No data available for this section No data available for this section No Family History Records Found Advance Directives No Advanced Directives Records FoundNo Advanced Directives Records FoundNo Advanced Directives Records FoundNo Advanced Directives Records FoundNo Advanced Directives Records Found Medications Administered Section Inactive Administered Medications - up to 3 most recent administrations Medication Order MAR Action Action Date Dose Rate Site betamethasone acetate-betamethasone sodium phosphate 6 mg injection (CELESTONE) 6 mg, Injection - FOR ORTHO USE ONLY, ONE TIME INJECTION, 1 dose, Starting on Tue03/07/23 at 0937, Until Tue03/07/23 at 0937 Given 03/07/2023 9:37 AM EDT 6 mg Shoul twila, Right lidocaine (PF) 10 mg/mL (1 %) 4 mL injection (XYLOCAINE) 4 mL, Injection - FOR ORTHO USE ONLY, ONE TIME INJECTION, 1 dose, Starting on Tue03/07/23 at 0937, Until Tue03/07/23 at 0937 Given 03/07/2023 9:37 AM EDT 4 mL Arnel twila, Right Additional Source Comments INFORMATION SOURCE (unrecogn ized section and content) DATE CREATED AUTHOR 07/14/2021 [facility] kadie Aburto DATE CREATED AUTHOR AUTHOR'S ORGANIZ ATION 01/28/2023 [facility] DATE CREATED AUTHOR AUTHOR'S ORGANIZ ATION 05/09/2023 [facility] DATE CREATED AUTHOR AUTHOR'S ORGANIZ ATION 04/18/2024 [facility] ([place]) DATE CREATED AUTHOR AUTHOR'S ORGANIZ ATION 09/17/2024 [facility] Source Comments (unrecognize d section and content) In the event this informatio n is protected by the Federal Confidentiality of Alcohol and Drug Abuse Patient Records regulations: The Federal rules restrict any use of the information to criminally investigate or prosecute any alcohol or drug abuse patient.[facility] the event this information is protected by the Federal Confidentiality of Alcohol and Drug Abuse Patient Records regulations: The Federal rules restrict any use of the information to criminally investigate or prosecute any alcohol or drug abuse patient.[facility] the event this information is protected by the Federal Confidentiality of Alcohol and Drug Abuse Patient Records regulations: The Federal rules restrict any use of the information to criminally investigate or prosecute any alcohol or drug abuse patient.[facility] the event this information is protected by the Federal Confidentiality of Alcohol and Drug Abuse Patient Records regulations: The Federal rules restrict any use of the information to criminally investigate or prosecute any alcohol or drug abuse patient.[facility] the event this information is protected by the Federal Confidentiality of Alcohol and Drug Abuse Patient Records regulations: The Federal rules restrict any use of the information to criminally investigate or prosecute any alcohol or drug abuse patient.[facility] the event this information is protected by the Federal Confidentiality of Alcohol and Drug Abuse Patient Records regulations: The Federal rules restrict any use of the information to criminally investigate or prosecute any alcohol or drug abuse patient.[facility] Hospital[facility] the event this information is protected by the Federal Confidentiality of Alcohol and Drug Abuse Patient Records regulations: The Federal rules restrict any use of the information to criminally investigate or prosecute any alcohol or drug abuse patient.[facility] the event this information is protected by the Federal Confidentiality of Alcohol and Drug Abuse Patient Records regulations: The Federal rules restrict any use of the information to criminally investigate or prosecute any alcohol or drug abuse patient.[facility] Hospital[facility] the event this information is protected by the Federal Confidentiality of Alcohol and Drug Abuse Patient Records regulations: The Federal rules restrict any use of the information to criminally investigate or prosecute any alcohol or drug abuse patient.[facility] Hospital[facility] the event this information is protected by the Federal Confidentiality of Alcohol and Drug Abuse Patient Records regulations: The Federal rules restrict any use of the information to criminally investigate or prosecute any alcohol or drug abuse patient.[facility] Hospital[facility] the event this information is protected by the Federal Confidentiality of Alcohol and Drug Abuse Patient Records regulations: The Federal rules restrict any use of the information to criminally investigate or prosecute any alcohol or drug abuse patient.[facility] Hospital[facility] the event this information is protected by the Federal Confidentiality of Alcohol and Drug Abuse Patient Records regulations: The Federal rules restrict any use of the information to criminally investigate or prosecute any alcohol or drug abuse patient.[facility] Hospital[facility] the event this information is protected by the Federal Confidentiality of Alcohol and Drug Abuse Patient Records regulations: The Federal rules restrict any use of the information to criminally investigate or prosecute any alcohol or drug abuse patient.[facility] Hospital[facility] the event this information is protected by the Federal Confidentiality of Alcohol and Drug Abuse Patient Records regulations: The Federal rules restrict any use of the information to criminally investigate or prosecute any alcohol or drug abuse patient.[facility] Hospital[facility] the event this information is protected by the Federal Confidentiality of Alcohol and Drug Abuse Patient Records regulations: The Federal rules restrict any use of the information to criminally investigate or prosecute any alcohol or drug abuse patient.[facility] Reason for Visit (unrecogniz ed section and content) Reason Onset Date Comments Refill Request Refill Request 05/26/2022 Reason Onset Date Comments Refill Request Refill Request 06/25/2022 Reason Comments Spirometry Specialty Diagnoses / Procedures Referred By Contac t Referred To Contact [facility] Diagnoses Moderate COPD (chronic obstructive pulmonary disease) (HCC) Procedures SPIROMETRY BASELINE ONLY SPMTRY W/VC EXPIRATORY MARISOL W/WO MXML VOL VNTJ Carmela Branch PA-C [address] [place] [address] Respiratory [place] [address] [place] [address] Referral ID Status Reason Start Date Expiration Date V isits Requested Visits Authorized [id number] Closed Auto-Generate d Referral 07/08/2022 08/07/2023 1 1 Reason Comments Established Patient Reason Comments Refill Request Reason Comments Patient Question Regarding date of pr ocedure Reason Comments Consult Reason Comments Established Patient Post Op Pain Reason Comments Eye Problem Left eye redness, pa in, watery x 3 days Reason Comments Post Op 5 weeks 5 days post op Bilateral CTR and 1st dorsal compartment release Reason Comments Mri Technician - Other Reason Comments Follow Up Pain 4 weeks post visit right shoulder with i njection given Care Teams (unrecognized sec tion and content) Instrument Fitter Relationship Specialty Start Date End Date Noble West DO [address] [facility] [place] [address] PCP - General Family Practice 04/02/20 Instrument Fitter Relationship Specialty Start Date End Date Noble West DO [address] [facility] [place] [address] PCP - General Family Medicine 04/02/20 Instrument Fitter Relationship Specialty Start Date End Date Noble West DO [address] [place] [address] PCP - General Family Medicine 04/02/20 Instrument Fitter Relationship Specialty Start Date End Date Noble West DO [address] [place] [address] PCP - General Family Medicine 04/02/20 Instrument Fitter Relationship Specialty Start Date End Date Noble West DO [address] [place] [address] PCP - General Family Medicine 04/02/20 Instrument Fitter Relationship Specialty Start Date End Date Noble West DO [address] [place] [address] PCP - General Family Medicine 04/02/20 Instrument Fitter Relationship Specialty Start Date End Date Noble West DO [address] [place] [address] PCP - General Family Medicine 04/02/20 Instrument Fitter Relationship Specialty Start Date End Date Noble West DO [address] [place] [address] PCP - General Family Medicine 04/02/20 Instrument Fitter Relationship Specialty Start Date End Date oNble West DO [address] [place] [address] PCP - General Family Medicine 04/02/20 Instrument Fitter Relationship Specialty Start Date End Date Noble West [address] [facility] [place] [address] PCP - [facility] Medicine 04/02/20 Instrument Fitter Relationship Specialty Start Date End Date Noble West DO [address] [facility] [place] [place] [address] PCP - [facility] 04/02/20 Instrument Fitter Relationship Specialty Start Date End Date Noble West DO [address] [facility] [place] [address] PCP - [facility] Medicine 04/02/20 FOR RECORDS PERTAINING TO PATIENTS WHO ARE OR HAVE BEEN ENROLLED IN A CHEMICAL DEPENDENCY/SUBSTANCEABUSE PROGRAM, SOME INFORMATION MAY BE OMITTED. This clinical summary was aggregated from multiple sources. Caution should be exercised in using it in the provision of clinical care. This summary normalizes information from multiple sources, and as a consequence, information in this document may materially change the coding, format and clinical context of patient data. In addition, data may be omitted in some cases. CLINICAL DECISIONS SHOULD BE BASED ON THE PRIMARY CLINICAL RECORDS. [facility]. provides no warranty or guarantee of the accuracy or completeness of information in this document.
--- NOTE | 2024-09-19 09:58 | CL.D_ITS ---
Patient Name: DION MACE Study Date: 09/19/2024 Performing: Tee Valdez MD Ht: 60 inches 152.4 cm : 1945 Wt: 153 lbs 69.4 kg Age: 78 Gender: female BSA: 1.67 PROCEDURE(S) PERFORMED [id number])LHC/COR/LV CLINICAL PROFILE AND INDICATIONS Indications: Suspected CAD Heart Failure: None Stress/Imaging Date: 09/12/24 CAD Presentations: Stable angina. CONCLUSIONS Moderate nonobstructive coronary disease with up to 70% stenosis noted in the proximal to mid LAD in the proximal to mid right coronary artery with calcification and preserved left ventricular systolic function. RECOMMENDATIONS Aggressive risk factor modification and treatment for hypertension. DESCRIPTION OF PROCEDURE The patient arrived to the procedure lab. The risks and benefits of the procedure as well as a full description of our services here and current unavailability of surgical backup were fully explained to the patient and/or their significant other prior to the catheterization. The Timeout was completed, verifying the correct patient and procedure. The patient's procedural site was prepped and draped in the usual fashion. Local anesthetic was given subcutaneously to right radial region with Lidocaine 2%. Using a modified Seldinger technique, arterial access was obtained via the right radial artery, a 6Fr sheath was inserted. Left Coronary Artery selective angiography was performed in multiple views using a 5 Fr. 4.0 Sprakers catheter. Right Coronary Artery selective angiography was then performed in multiple views using a 5 Fr. 4.0 Sprakers catheter. Left Ventriculography was performed in LUEVANO projection using a 5 Fr. Pigtail catheter. LV to AO pullback pressures were then recorded.The arterial sheath was pulled and a TR Band was applied for hemostasis 14 ml of air CORONARY ANGIOGRAPHY DOMINANCE: Right Dominant LEFT HEART ASSESSMENT Left Ventricular Ejection Fraction: by LV Gram 70 % Normal LV wall motion Normal Left Ventricular systolic function LEFT MAIN: Mild calcification, Mild luminal irregularities LEFT ANTERIOR DESCENDING ARTERY: Mild calcification, Moderate luminal irregularities up to 50% CIRCUMFLEX ARTERY: Mild luminal irregularities less than 30% RAMUS: Moderate luminal irregularities up to 50% RIGHT CORONARY ARTERY: Moderate calcification Moderate luminal irregularities up to 50% COMPLICATIONS No Complications PROCEDURE MEDICATIONS Versed 1 mg IV Fentanyl 50 mcg IV Versed 1 mg IV Oxygen: 2 L/min via nasal cannula Heparin given IA 09/19/2024 09:24:31 Verapamil 2.5mg, Ntg 100mcgs, 3000 units of Heparin given IA 09/19/2024 09:24:31 SUMMARY OF HEMODYNAMIC DATA Time AIR REST ECG 08:18:08 AO 197/68 (118) SA 09:44:15 AO 161/61 (103) 09:47:10 LV 177/-6, 0 09:48:47 LV 187/-5, 3 09:48:55 LV 162/10, 23 09:49:26 LV 161/7, 8 09:49:34 LVp 157/5, 7 09:49:37 AOp 163/64 (110) 09:49:44 Signed By Tee Valdez MD On 09/19/2024 09:57:33 Tee Valdez MD
== END 2024-09-19 12:45 | disposition home or self-care (01) ==
PROVIDERS: PCP Family Medicine; Referring Provider Internal Medicine Cardiovascular Disease; Visit Provider Internal Medicine Cardiovascular Disease
DX: I25.118 Atherosclerotic heart disease of native coronary artery with other forms of angina pectoris (principal); J44.9 Chronic obstructive pulmonary disease, unspecified; I10 Essential (primary) hypertension; E66.3 Overweight; Z87.891 Personal history of nicotine dependence; Z79.51 Long term (current) use of inhaled steroids; Z79.899 Other long term (current) drug therapy
CPT/HCPCS: 71046; 93458; 99152; 99153; J7040; Q9967; C1769; C1894

== ENCOUNTER → 2025-03-28 | Outpatient (CLI) | payer MEDICARE, SELFPAY ==
[2025-03-28 09:53] LABS: AST(SGOT) 19 U/L (<=31); Alanine Aminotransfer ALT/SGPT 21 U/L (<=34); Albumin, Serum 3.9 g/dL (3.4-4.8); Alkaline Phosphatase 103 U/L (35-104); Bilirubin, Direct 0.12 mg/dL (0.00-0.30); Cholesterol 164 mg/dL (<=200); Globulin 2.4 g/dL (2.2-4.2); High Density Lipoprotein 84 mg/dL; Low Density Lipoprotein Calc. 64 mg/dL; Protein, Total 6.2 g/dL (5.9-8.4); Total Bilirubin 0.21 mg/dL (0.00-1.30); Triglycerides 80 mg/dL; Very Low Density Lipoprotein 16 mg/dL (5-40); cholesterol:hdl ratio screen 1.95
== END | disposition home or self-care (01) ==
LOC: LAB 08:16
PROVIDERS: PCP Family Medicine; Referring Provider Student in an Organized Health Care Education/Training Program; Visit Provider Student in an Organized Health Care Education/Training Program
DX: I25.10 Atherosclerotic heart disease of native coronary artery without angina pectoris (principal)
CPT/HCPCS: 36415; 80061; 80076

== ENCOUNTER → 2025-09-20 | Outpatient (CLI) | payer MEDICARE, SELFPAY ==
[2025-09-20 09:29] LABS: Cholesterol 188 mg/dL (<=200); Low Density Lipoprotein Calc. 83 mg/dL; Triglycerides 82 mg/dL; Very Low Density Lipoprotein 16 mg/dL (5-40); cholesterol:hdl ratio screen 2.09
[2025-09-20 09:30] LABS: AST(SGOT) 15 U/L (<=31); Alanine Aminotransfer ALT/SGPT 15 U/L (<=34); Albumin, Serum 4.0 g/dL (3.4-4.8); Alkaline Phosphatase 103 U/L (35-104); Bilirubin, Direct < 0.08 mg/dL (0.00-0.30); Globulin 2.9 g/dL (2.2-4.2)
== END | disposition home or self-care (01) ==
LOC: LAB 08:27
PROVIDERS: PCP Family Medicine; Referring Provider Student in an Organized Health Care Education/Training Program; Visit Provider Student in an Organized Health Care Education/Training Program
DX: I25.10 Atherosclerotic heart disease of native coronary artery without angina pectoris (principal)
CPT/HCPCS: 36415; 80061; 80076